=== PATIENT | male | born 1935 | race Caucasian/White ===

== ENCOUNTER 2020-05-15 20:07 | Inpatient (IN) | payer MEDICARE ==
[~2020-05-15] VITALS: Ht 180.3 cm; Wt 99.3 kg
[~2020-05-15 20:07] MED LIST: ACET-685 PO; ALBU2.5V12 IH; AMIO200T6 PO; AMLO-169 PO; AMLO-170 PO; APIX5TAB PO; ASPI-485 PO; ASPI-667 PO; ATEN50TA PO; ATOR40TA50 PO; AZIT500T PO; BACI3.5O8 OP; BENZ100C PO; BUDE0.5A3 IH; CARV12.52 PO; CARV3.12 PO; CHOL500021 PO; CLIN300C8 PO; CLON0.1T PO; DIGO125T81 PO; DOCU-167 PO; DOXY100T PO; EZET10TA20 PO; FERR142T13 PO; FURO-80 PO; FURO20TA3 PO; GABA100C PO; GABA100C7 PO; GUAI600T31 PO; HYDR-3194 PO; HYDR-3195 PO; IPRA0.2S34 IH; LEVA1.25 IH; LEVO500T51 PO; LEVO75TA6 PO; LISI-410 PO; LOSA25TA2 PO; LOSA50TA14 PO; METF500T17 PO; METO-236 PO; METO25TA4 PO; METO50TA6 PO; MONT10TA11 PO; MULT-419 PO; Magnesium Oxide PO; OLME1TAB25 PO; OLME40TA12 PO; OMEP20CA19 PO; ONDA-87 PO; POTA10CA PO; POTA10TA6 PO; PRED5TAB PO; PREG100C PO; TAMS-14 PO; TAMS0.4C2 PO; THEO400T2 PO; TIOT18CA IH; TIOT4MIS3 IH; TORS10TA4 PO; TORS20TA PO; TORS20TA2 PO; TRAM50TA PO; VALS80TA3 PO; WARF5TAB2 PO; [UNRECOGNIZED DRUG - CODE] PO
--- NOTE | 2020-05-15 20:11 | NUR ---
RT CALLED FOR EKG
[2020-05-15 20:12] VITALS: BP 157/76
[2020-05-15 20:27] LABS: BASOPHIL # 0.1 10^3/uL (0.0-0.1); BASOPHIL % 0.9 % (0.0-0.2); EOSINOPHIL # 0.1 10^3/uL (0.0-0.2); LYMPHOCYTES # 4.77 10^3/uL1 (1.0-4.8); LYMPHOCYTES % 51.1 % (24.0-44.0); MEAN CORP HGB 26.9 pg (26-34); MONOCYTES # 0.8 10^3/uL (0.3-0.8); MONOCYTES % 8.4 % (5.0-12.0); NEUTROPHIL # 3.6 10^3/uL (1.8-7.7); NEUTROPHILS % 38.5 % (41.0-85.0); PLATELET COUNT 234 10^3/uL (150-400); RED CELL DISTRIBUTION WIDTH 15.2 % (11.5-14.5)
--- NOTE | 2020-05-15 20:33 | PCM.EKG ---
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: RT : 1935 Requested By: NORBERT SCOTT Order Number: [id number] Reading MD: Norbert Scott Measurements Intervals [place] Rate: 45 P: [place]: QRS: 63 QRSD: 96 T: 103 QT: 480 QTc: 416 Interpretive Statements Atrial flutter Nonspecific repol abnormality, diffuse leads Compared to ECG 03/14/2020 06:54:59 Early repolarization now present AV block, advanced (high-grade) no longer present ST (T wave) deviation no longer present Prolonged QT interval no longer present Electronically Signed On 05-16-2020 19:59:32 CDT by Norbert Scott Please click the below link to view image of tracing.
[2020-05-15 20:54] LABS: CALCIUM 8.1 mg/dL (8.4-10.5); CARBON DIOXIDE 24.1 mmol/L (20.0-32)
--- NOTE | 2020-05-15 21:03 | DIREP ---
PROCEDURE:CHEST 1 VIEW COMPARISON:[facility], CR, XRAY CHEST SINGLE VW, 03/14/2020, 06:43 AM. INDICATIONS:SHORTNESS OF BREATH FINDINGS: LUNGS/PLEURA:Pulmonary hyperexpansion suggests COPD/emphysema. Scattered interstitial scarring. VASCULATURE:Normal. Unremarkable pulmonary vasculature. CARDIAC:Mild cardiomegaly. MEDIASTINUM:Calcified right hilar lymph nodes. BONES:Normal. No fracture or visible bony lesion. OTHER:Negative. CONCLUSION: 1. COPD/emphysema with interstitial scarring. 2. Cardiomegaly. 3. Old granulomatous disease. Dictated by: Ferdinand Morris M.D. on 05/15/2020 at 08:59 PM
--- NOTE | 2020-05-15 21:46 | NUR ---
DHAVAL DAIGLE CALLING DR PUENTES
--- NOTE | 2020-05-15 21:54 | NUR ---
NICHOLAS DEP SPEAKING TO DR PETERSON ABOUT ADMISSION.
--- NOTE | 2020-05-15 22:25 | NUR ---
HOSPITALIST DR. ANTHONY AT BEDSIDE TO ASSESS PATIENT
--- NOTE | 2020-05-15 22:43 | NUR ---
PRIMARY CONTACT PATIENT GAVE PERMISSION FOR NURSES TO SPEAK WITH IRVIN LOCKETT IF SHE CALLS FOR INFORMATION. THIS IS PATIENT'S DAUGHTER.
--- NOTE | 2020-05-15 22:44 | NUR ---
IRVIN'S NUMBER: [phone]
--- NOTE | 2020-05-15 22:51 | PCM.HP ---
History of Present Illness Reason for Visit: (1) Chronic anemia ICD Code: D64.9 - Anemia, unspecified SNOMED: 879436272 (2) Diastolic heart failure due to valvular disease ICD Code: I50.30 - Unspecified diastolic (congestive) heart failure; I38 - Endocarditis, valve unspecified SNOMED: 130211452 (3) Atrial flutter by electrocardiogram ICD Code: I48.92 - Unspecified atrial flutter SNOMED: 030890050 (4) Dyspnea ICD Code: R06.00 - Dyspnea, unspecified SNOMED: 233320251, 588965359 Permanent Comment: Improved since admission - Continue Tx for COPD exacerbation & CHF exacerbation. Last Edited By: Augusto Meza MD on Apr 25, 2016 17:36 (5) Weakness generalized ICD Code: R53.1 - Weakness SNOMED: 76940236 Permanent Comment: Significantly improved with medical therapy per patient - continue to treat for COPD & CHF Last Edited By: Augusto Meza MD on Apr 25, 2016 17:46 (6) Chest pain ICD Code: R07.9 - Chest pain, unspecified SNOMED: 22365826 (7) Acute on chronic renal insufficiency ICD Code: N28.9 - Disorder of kidney and ureter, unspecified; N18.9 - Chronic kidney disease, unspecified SNOMED: 567051404, 781087091 Hx of Present Illness 84-year-old male who presented to the Emergency Department of [facility] with symptoms of left sided chest discomfort for several hours that is better after taking a hydrocodone, generalized weakness and progressively worsening shortness of breath. On presentation to the ED, chest x-ray revealed findings of cardiomegaly and emphysematous changes. 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 Nonspecific findings on EKG with no clear evidence of acute ischemia, Troponin neg X1. 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 ECHO 12/2019 The left ventricular systolic function is normal. LVEF is 60-65%. Bioprosthetic aortic valve is present. Severe aortic regurgitation. Severe mitral regurgitation. Moderate tricuspid regurgitation. PAST MEDICAL HISTORY: 1. Hypertension. 2. Chronic diastolic heart failure. 3. Nonobstructive coronary artery disease by left heart catheterization done, 09/2019. 4. Chronic obstructive pulmonary disease. 5. Obstructive sleep apnea. 6. Type 2 diabetes mellitus. 7. Paroxysmal atrial flutter. 8. Carotid artery disease. 9. Severe mitral regurgitation. 10. [id number] aortic regurgitation. PAST SURGICAL HISTORY: 1. Bioprosthetic aortic valve replacement done in 2007. 2. Left heart catheterization done 09/2019, which revealed nonobstructive coronary artery disease. ALLERGIES: HE IS ALLERGIC TO AMLODIPINE, LIPITOR, BUTORPHANOL, HYDROCHLOROTHIAZIDE, IBUPROFEN, AND PREGABALIN. MEDICATIONS: He takes at home includes; 1. Eliquis 5 mg p.o. b.i.d. 2. Aspirin 81 mg p.o. daily. 3. Docusate 100 mg p.o. b.i.d. 4. Torsemide 20 mg half a tab daily. 5. Gabapentin 200 p.o. q. 8 hours. 6. Levothyroxine 75 mcg p.o. daily. 7. Losartan 100 mg p.o. daily. 8. Metoprolol tartrate 12.5 mg p.o. b.i.d. 9. Prilosec 20 mg p.o. every day. 10. Prednisone 5 mg p.o. every day. 11. Flomax 0.8 mg p.o. daily. SOCIAL HISTORY: Denies tobacco use, denies illicit drug use, denies alcohol use. FAMILY HISTORY: Admits to family history of premature CAD, but denies sudden cardiac . Travel History [place] RISK:Travel to/contact w: No Review of Systems Constitutional: Weakness (generalized); No: Fever, Chills, Sweats, Malaise, Other Eyes: No: Pain, Vision change, Conjunctivae inflammation, Eyelid inflammation, Other, Redness ENT: No: Ear pain, Ear discharge, Nose pain, Nose discharge, Nose congestion, Mouth pain, Mouth swelling, Throat pain, Throat swelling, Other Respiratory: SOB with excertion; No: Dry, Wheezing, Hemoptysis, Pleuritic Pain, Sputum, Wheezing, Other Cardiovascular: Chest Pain; No: Palpitations, Orthopnea, Paroxysmal Noc. Dyspnea, Edema, Lt Headedness Gastrointestinal: No: Nausea, Vomiting, Abdominal Pain, Diarrhea, Constipation, Melena, Hematochezia, Other Genitourinary: No Dysuria, No Frequency, No Incontinence, No Hematuria, No Retention, No Other Musculoskeletal: No: other, neck pain, shoulder pain, arm pain, back pain, hand pain, leg pain, foot pain Skin: No: Rash, Lesions, Jaundice, Bruising, Other Neurological: No: Numbness, Incoordination, Change in speech, Confusion, Seizures, Other Allergies: Coded Allergies: atorvastatin (Verified Allergy, Severe, MUSCLE WEAKNESS, 03/10/20) hydrochlorothiazide (Verified Allergy, Severe, HYPONATREMIA, 03/10/20) amlodipine (Verified Allergy, Intermediate, Swelling, 03/10/20) "MAKES ME RETAIN WATER REAL BAD" pregabalin (Verified Allergy, Intermediate, 03/10/20) BLURRED VISION butorphanol (Verified Allergy, Unknown, HALLUCINATIONS, 03/10/20) ibuprofen (Verified Allergy, Unknown, 03/10/20) INSTRUCTED BY DR NOT TO TAKE lisinopril (Verified Allergy, Unknown, 03/10/20) Scheduled Apixaban (Eliquis), 5 MG PO BID, (Reported) Aspirin (Aspir 81), 1 TAB PO DAILY24, (Reported) Docusate Sodium (Easy-Lax), 100 MG PO BID Gabapentin (Gabapentin), 2 CAP PO TID, (Reported) Hydralazine Hcl (Hydralazine Hcl), 2 TAB PO BID, (Reported) Levothyroxine Sodium (Levothyroxine Sodium), 1 TAB PO DAILY, (Reported) Losartan Potassium (Losartan Potassium), 2 TAB PO DAILY, (Reported) Metoprolol Tartrate 25MG (Lopresser 25MG), 12.5 MG PO BID Omeprazole (Omeprazole), 1 CAP PO BID, (Reported) Potassium Chloride (Potassium Chloride), 10 MEQ PO Q48H, (Reported) Tamsulosin Hcl (Flomax), 2 CAP PO DAILY, (Reported) Tiotropium Br/Olodaterol HCl (Stiolto Respimat Inhal [place]), 2 PUFF IH DAILY24, (Reported) Torsemide (Torsemide), 1 TAB PO Q48H, (Reported) Torsemide (Torsemide), 1 TAB PO Q48H, (Reported) Scheduled PRN Furosemide (Furosemide), 1 TAB PO DAILY PRN for WEIGHT GAIN, (Reported) Hydrocodone Bit/Acetaminophen (Hydrocodon-Acetaminophn 10-300), 1 TAB PO BID PRN for PAIN MODERATE, (Reported) VTE VTE Risk Total Score: >5 VTE Risk Score VTE Risk: Score 0-1 = Low Risk (Aggressive mobilization; early ambulation; no VTE prophylaxis required) Score 2: Moderate Risk (Intermittent/Pneumatic Compression Device OR Lovenox/Heparin/Coumadin) Score 3-4: High Risk (Intermittent/Pneumatic Compression Device AND Lovenox/Heparin/Coumadin) Score > or =5: Highest Risk (Intermittent/Pneumatic Compression Device AND Lovenox/Heparin/Coumadin) Antico:Hep/LMWH/Coum/Xarelto: Yes Mechanical device ordered: Yes Reasons not ordering prophylax: Renal impairment VTE VTE Present on Admission: No Currently receiving anticoagul: Yes VTE Risk Total Score: >5 Antico:Hep/LMWH/Coum/Xarelto: No Mechanical device ordered: Yes Exam Vital Signs Vital Signs Date Time Temp Pulse Resp B/P (MAP) Pulse Ox O2 Delivery O2 Flow Rate FiO2 05/15/20 20:12 98.5 57 18 157/76 (103) 94 General Appearance: Alert, Oriented X3 HEENT: Atraumatic Respiratory: Clear to auscultation, Normal air movement Cardiovascular: Other (bradycardia and murmur present) Abdominal: Normal bowel sounds Extremities: No clubbing Skin: No rash Neuro: Normal speech, Strength at 5/5 X4 ext Psych/Mental Status: Mental status NL, Mood NL Assessment/Plan Assessment/Plan Assessment/Plan Assessment: 84-year-old male who presented to the Emergency Department of [facility] with symptoms of left sided chest discomfort for several hours that is better after taking a hydrocodone, generalized weakness and progressively worsening shortness of breath. On presentation to the ED, chest x-ray revealed findings of cardiomegaly and emphysematous changes. He also has a history of severe valvulopathy with severe mitral regurgitation as well as [id number]-[id number]-jyxrdq aortic regurgitation with porcine valve in place. Nonspecific findings on EKG with no clear evidence of acute ischemia, Troponin neg X1. Patient denies fever or change in baseline chronic COPD cough Plan: Chest pain: Patient states this is mostly resolved no acute ischemia on EKG and troponin is negative will trend troponins x3 overnight continue aspirin and Eliquis cardiology consult in the morning additional EKG for any worsening chest pain. CHF: One-time dose of Lasix tonight with potassium will gently diuresis given acute on chronic renal sufficiency. BNP does appear to be above baseline we will plan on obtaining echocardiogram in the a.m. with cardiology consult 1.5 L daily fluid restriction and daily weights. Strict HENRY's Acute on chronic renal insufficiency: Monitor closely with diuresis avoid nephrotoxic medications. Chronic anemia: On aspirin and Eliquis will continue Protonix gastroprotective effect and likely chronic blood loss anemia trend hemoglobin Paroxysmal atrial flutter: continue rate control medications Hypothyroidism: continue levothyroxine Restart home medications for other chronic health problems as indicated Full Code Patient History: FH: cancer G8 BROTHER, , Age:50's - 60 G8 BROTHER, , Age:50's - 60 Hypertension 33 FATHER, , Age:61 No Family History of: Alzheimer's disease Asthma Congestive heart failure Parkinson's disease Unknown TYRESE ANTHONY MD May 15, 2020 22:51
[2020-05-15] MEDS ORDERED: NORCO 10MG PO PRN (23:30)
[2020-05-15] MEDS ORDERED: KLOR-CON 10 PO SCH (23:30)
[2020-05-15] MEDS ORDERED: LASIX PO PRN (23:30)
[2020-05-15] MEDS ORDERED: DEMADEX PO SCH (23:30)
[2020-05-15] MEDS ORDERED: LASIX IV STA (23:36)
[2020-05-15] MEDS ORDERED: POTASSIUM CHLORIDE PO STA (23:36)
[2020-05-15] MEDS ORDERED: COLACE ONE (23:47)
[2020-05-15] MEDS ORDERED: NORCO 10MG PO ONE (23:49)
[2020-05-15] MEDS ORDERED: ASPIRIN ONE (23:50)
[2020-05-15] MEDS: ASPIRIN EC PO SCH (23:58)
[2020-05-15] MEDS: ELIQUIS PO SCH (23:59)
[2020-05-15] MEDS: COLACE PO SCH (23:59)
[2020-05-16] VITALS (7 sets, daily range): BP systolic 118–146; BP diastolic 52–70
[2020-05-16] MEDS: APRESOLINE PO SCH ×3 (00:01→20:12)
[2020-05-16] MEDS ORDERED: NORCO 10MG PO ONE (00:03)
[2020-05-16 05:55] LABS: BASOPHIL # 0.1 10^3/uL (0.0-0.1); BASOPHIL % 1.1 % (0.0-0.2); EOSINOPHIL # 0.2 10^3/uL (0.0-0.2); EOSINOPHIL % 2.7 % (0.0-5.0); LYMPHOCYTES # 4.48 10^3/uL1 (1.0-4.8); LYMPHOCYTES % 52.8 % (24.0-44.0); MEAN CORP HGB 27.2 pg (26-34); MONOCYTES # 0.7 10^3/uL (0.3-0.8); MONOCYTES % 8.6 % (5.0-12.0); NEUTROPHIL # 2.9 10^3/uL (1.8-7.7); NEUTROPHILS % 34.6 % (41.0-85.0); PLATELET COUNT 227 10^3/uL (150-400)
[2020-05-16 06:16] LABS: ALANINE AMINOTRANSFERASE(ML) 17 U/L (12-78); ALKALINE PHOSPHATASE 92 U/L (50-136); ASPARTATE AMINO TRANSFERASE 19 U/L (0-35); CALCIUM 8.4 mg/dL (8.4-10.5); CARBON DIOXIDE 23.4 mmol/L (20.0-32); GLUCOSE 112 mg/dL (70-110)
--- NOTE | 2020-05-16 08:28 | PRM.PN ---
Subjective Subjective Date: May 16, 2020 Time: 08:27 Subjective Patient is feeling better today after IV lasix will continue per cardiology recommendation Patient History: FH: cancer G8 BROTHER, , Age:50's - 60 G8 BROTHER, , Age:50's - 60 Hypertension 33 FATHER, , Age:61 No Family History of: Alzheimer's disease Asthma Congestive heart failure Parkinson's disease Unknown VTE VTE Risk Total Score: >5 VTE Risk Score VTE Risk: Score 0-1 = Low Risk (Aggressive mobilization; early ambulation; no VTE prophylaxis required) Score 2: Moderate Risk (Intermittent/Pneumatic Compression Device OR Lovenox/Heparin/Coumadin) Score 3-4: High Risk (Intermittent/Pneumatic Compression Device AND Lovenox/Heparin/Coumadin) Score > or =5: Highest Risk (Intermittent/Pneumatic Compression Device AND Lovenox/Heparin/Coumadin) Antico:Hep/LMWH/Coum/Xarelto: Yes Mechanical device ordered: Yes Reasons not ordering prophylax: Renal impairment Review of Systems Constitutional: Weakness Eyes: No: Pain, Vision change, Conjunctivae inflammation, Eyelid inflammation, Other, Redness ENT: No: Ear pain, Ear discharge, Nose pain, Nose discharge, Nose congestion, Mouth pain, Mouth swelling, Throat pain, Throat swelling, Other Respiratory: SOB with excertion Cardiovascular: Chest Pain, Orthopnea Gastrointestinal: No: Nausea, Vomiting, Abdominal Pain, Diarrhea, Constipation, Melena, Hematochezia, Other Genitourinary: No Dysuria, No Frequency, No Incontinence, No Hematuria, No Retention, No Other Musculoskeletal: No: other, neck pain, shoulder pain, arm pain, back pain, hand pain, leg pain, foot pain Skin: No: Rash, Lesions, Jaundice, Bruising, Other Neurological: No: Numbness, Incoordination, Change in speech, Confusion, Seizures, Other Allergies: Coded Allergies: atorvastatin (Verified Allergy, Severe, MUSCLE WEAKNESS, 03/10/20) hydrochlorothiazide (Verified Allergy, Severe, HYPONATREMIA, 03/10/20) amlodipine (Verified Allergy, Intermediate, Swelling, 03/10/20) "MAKES ME RETAIN WATER REAL BAD" pregabalin (Verified Allergy, Intermediate, 03/10/20) BLURRED VISION butorphanol (Verified Allergy, Unknown, HALLUCINATIONS, 03/10/20) ibuprofen (Verified Allergy, Unknown, 03/10/20) INSTRUCTED BY DR NOT TO TAKE lisinopril (Verified Allergy, Unknown, 03/10/20) Scheduled Apixaban (Eliquis), 5 MG PO BID, (Reported) Aspirin (Aspir 81), 1 TAB PO DAILY24, (Reported) Docusate Sodium (Easy-Lax), 100 MG PO BID Gabapentin (Gabapentin), 2 CAP PO TID, (Reported) Hydralazine Hcl (Hydralazine Hcl), 2 TAB PO BID, (Reported) Levothyroxine Sodium (Levothyroxine Sodium), 1 TAB PO DAILY, (Reported) Losartan Potassium (Losartan Potassium), 2 TAB PO DAILY, (Reported) Metoprolol Tartrate 25MG (Lopresser 25MG), 12.5 MG PO BID Omeprazole (Omeprazole), 1 CAP PO BID, (Reported) Potassium Chloride (Potassium Chloride), 10 MEQ PO Q48H, (Reported) Tamsulosin Hcl (Flomax), 2 CAP PO DAILY, (Reported) Tiotropium Br/Olodaterol HCl (Stiolto Respimat Inhal [place]), 2 PUFF IH DAILY24, (Reported) Torsemide (Torsemide), 1 TAB PO Q48H, (Reported) Torsemide (Torsemide), 1 TAB PO Q48H, (Reported) Scheduled PRN Furosemide (Furosemide), 1 TAB PO DAILY PRN for WEIGHT GAIN, (Reported) Hydrocodone Bit/Acetaminophen (Hydrocodon-Acetaminophn 10-300), 1 TAB PO BID PRN for PAIN MODERATE, (Reported) Objective Vitals and I/O Vital Sign - Last 24 Hours 05/15/20 05/15/20 05/15/20 05/16/20 20:12 20:12 20:12 00:00 Temp 98.5 98.5 98.5 Pulse 57 57 57 Resp 18 18 18 B/P (MAP) 157/76 (103) 146/70 Pulse Ox 94 94 05/16/20 05/16/20 05/16/20 00:01 01:45 05:03 Temp 97.7 Pulse 60 60 59 Resp 20 18 B/P (MAP) 146/70 146/70 (95) 132/61 (84) Pulse Ox 97 96 O2 Delivery Room Air Room Air Intake and Output 05/16/20 06:59 Intake Total 240 ml Output Total 1110 ml Balance -870 ml General: Alert, Oriented X3 HEENT: Atraumatic Lungs: Clear to auscultation, Normal air movement Heart: Other (3/6 holosystolic murmur) Abdomen: Normal bowel sounds Extremities: No clubbing Neuro: Normal speech, Strength at 5/5 X4 ext Psych/Mental Status: Mental status NL, Mood NL All Results(Lab/Rad) Laboratory Tests Test 05/15/20 20:16 05/16/20 00:56 05/16/20 05:18 White Blood Count 9.3 10^3/uL 8.5 10^3/uL Red Blood Count 3.08 10^6/uL 2.98 10^6/uL Hemoglobin 8.3 g/dL 8.1 g/dL Hematocrit 26.3 % 25.3 % Mean Corpuscular Volume 85.4 fL 84.9 fL Mean Corpuscular Hemoglobin 26.9 pg 27.2 pg Mean Corpuscular Hemoglobin Concent 31.6 g/dL 32.0 g/dL Red Cell Distribution Width 15.2 % 15.0 % Platelet Count 234 10^3/uL 227 10^3/uL Mean Platelet Volume 9.6 fL 10.2 fL Neutrophils (%) (Auto) 38.5 % 34.6 % Lymphocytes (%) (Auto) 51.1 % 52.8 % Monocytes (%) (Auto) 8.4 % 8.6 % Neutrophils # (Auto) 3.6 10^3/uL 2.9 10^3/uL Lymphocytes # (Auto) 4.77 10^3/uL1 4.48 10^3/uL1 Monocytes # (Auto) 0.8 10^3/uL 0.7 10^3/uL Absolute Immature Granulocyte (auto 0.01 10^3 u/L 0.02 10^3 u/L Absolute Eosinophils (auto) 0.1 10^3/uL 0.2 10^3/uL Immature Granulocytes % 0.10 % 0.20 % Eosinophils % 1.0 % 2.7 % Basophils % 0.9 % 1.1 % Basophils # 0.1 10^3/uL 0.1 10^3/uL Prothrombin Time 13.6 SEC Prothrombin Time INR (Non-Therap) 1.3 Activated Partial Thromboplast Time 28.1 SEC D-Dimer 1.58 mg/L Sodium Level 131 mmol/L 138 mmol/L Potassium Level 4.0 mmol/L 4.3 mmol/L Chloride Level 100.0 mmol/L 104.0 mmol/L Carbon Dioxide Level 24.1 mmol/L 23.4 mmol/L Anion Gap 10.9 14.9 Blood Urea Nitrogen 27 mg/dL 29 mg/dL Creatinine 1.73 mg/dL 1.64 mg/dL Estimated GFR () 45.8 48.7 Est GFR (CKD-EPI)(Non-Afr Cymro) 37.8 40.2 BUN/Creatinine Ratio 15.0 17.0 Glucose Level 110 mg/dL 112 mg/dL Calcium Level 8.1 mg/dL 8.4 mg/dL Total Bilirubin 0.6 mg/dL 0.5 mg/dL Aspartate Amino Transf (AST/SGOT) 22 U/L 19 U/L Alanine Aminotransferase (ALT/SGPT) 20 U/L 17 U/L Alkaline Phosphatase 90 U/L 92 U/L Total Creatine Kinase 100 U/L Creatine Kinase MB 1.5 ng/mL Troponin I 0.03 ng/mL 0.03 ng/mL < 0.02 ng/mL Pro-B-Type Natriuretic Peptide 53999 pg/mL Total Protein 7.2 g/dL 6.9 g/dL Albumin 3.3 g/dL 3.0 g/dL Globulin 3.9 3.9 Albumin/Globulin Ratio 0.846 0.769 Helicobacter pylori Screen NEGATIVE Current Medications Medications (Trade) Dose Ordered Sig/Sal Route PRN Reason Start Time Stop Time Status Last Admin Dose Admin Aspirin (Aspirin Ec) 81 mg DAILY24 PO 05/15/20 23:30 06/14/20 23:29 05/15/20 23:58 Docusate Sodium (Colace) 100 mg BID PO 05/15/20 23:30 06/14/20 23:29 05/15/20 23:59 Furosemide (Lasix) 20 mg DAILY PRN PO WEIGHT GAIN 05/15/20 23:30 06/14/20 23:29 Gabapentin (Neurontin) 200 mg TID PO 05/16/20 09:00 06/15/20 08:59 Hydralazine HCl (Apresoline) 50 mg BID PO 05/15/20 23:30 06/14/20 23:29 05/16/20 00:01 Levothyroxine Sodium (Synthroid) 75 mcg ACB PO 05/16/20 09:00 06/15/20 08:59 Losartan Potassium (Cozaar) 100 mg DAILY PO 05/16/20 09:00 06/15/20 08:59 Metoprolol Tartrate (Lopresser) 12.5 mg BID PO 05/16/20 09:00 06/15/20 08:59 Pantoprazole Sodium (Protonix) 40 mg BID PO 05/16/20 09:00 06/15/20 08:59 Tamsulosin HCl (Flomax) 0.8 mg DAILY PO 05/16/20 09:00 06/15/20 08:59 Torsemide (Demadex) 20 mg Q48H PO 05/15/20 23:30 06/14/20 23:29 Acetaminophen/ Hydrocodone Bitart ([place] 10mg) 1 each BID PRN PO PAIN MOD 05/15/20 23:30 06/14/20 23:29 Potassium Chloride (Klor-Con 10) 10 meq Q48H PO 05/15/20 23:30 06/14/20 23:29 Furosemide (Lasix) 40 mg STAT STAT IV 05/15/20 23:36 05/16/20 00:06 DC 05/16/20 00:00 Potassium Chloride (Potassium Chloride) 40 meq STAT STAT PO 05/15/20 23:36 05/16/20 00:06 DC 05/15/20 23:59 Docusate Sodium (Colace) 100 mg STK-MED ONCE .ROUTE 05/15/20 23:47 05/15/20 23:49 DC Acetaminophen/ Hydrocodone Bitart ([place] 10mg) 1 each STK-MED ONCE PO 05/15/20 23:49 05/15/20 23:51 DC Aspirin (Aspirin) 81 mg STK-MED ONCE .ROUTE 05/15/20 23:50 05/15/20 23:52 DC Acetaminophen/ Hydrocodone Bitart ([place] 10mg) 1 each OT ONCE PO 05/16/20 00:03 05/16/20 00:04 DC 05/16/20 00:03 Course Sepsis Qualifier/Stage: NO DEFINITE RISK Duration or Total Time Spent w: 20 m Vitals & review Data Vital Sign - Last 24 Hours 05/15/20 05/15/20 05/15/20 05/16/20 20:12 20:12 20:12 00:00 Temp 98.5 98.5 98.5 Pulse 57 57 57 Resp 18 18 18 B/P (MAP) 157/76 (103) 146/70 Pulse Ox 94 94 05/16/20 05/16/20 05/16/20 00:01 01:45 05:03 Temp 97.7 Pulse 60 60 59 Resp 20 18 B/P (MAP) 146/70 146/70 (95) 132/61 (84) Pulse Ox 97 96 O2 Delivery Room Air Room Air Intake and Output 05/16/20 06:59 Intake Total 240 ml Output Total 1110 ml Balance -870 ml Laboratory Tests Test 05/15/20 20:16 05/16/20 00:56 05/16/20 05:18 White Blood Count 9.3 10^3/uL 8.5 10^3/uL Red Blood Count 3.08 10^6/uL 2.98 10^6/uL Hemoglobin 8.3 g/dL 8.1 g/dL Hematocrit 26.3 % 25.3 % Mean Corpuscular Volume 85.4 fL 84.9 fL Mean Corpuscular Hemoglobin 26.9 pg 27.2 pg Mean Corpuscular Hemoglobin Concent 31.6 g/dL 32.0 g/dL Red Cell Distribution Width 15.2 % 15.0 % Platelet Count 234 10^3/uL 227 10^3/uL Mean Platelet Volume 9.6 fL 10.2 fL Neutrophils (%) (Auto) 38.5 % 34.6 % Lymphocytes (%) (Auto) 51.1 % 52.8 % Monocytes (%) (Auto) 8.4 % 8.6 % Neutrophils # (Auto) 3.6 10^3/uL 2.9 10^3/uL Lymphocytes # (Auto) 4.77 10^3/uL1 4.48 10^3/uL1 Monocytes # (Auto) 0.8 10^3/uL 0.7 10^3/uL Absolute Immature Granulocyte (auto 0.01 10^3 u/L 0.02 10^3 u/L Absolute Eosinophils (auto) 0.1 10^3/uL 0.2 10^3/uL Immature Granulocytes % 0.10 % 0.20 % Eosinophils % 1.0 % 2.7 % Basophils % 0.9 % 1.1 % Basophils # 0.1 10^3/uL 0.1 10^3/uL Prothrombin Time 13.6 SEC Prothrombin Time INR (Non-Therap) 1.3 Activated Partial Thromboplast Time 28.1 SEC D-Dimer 1.58 mg/L Sodium Level 131 mmol/L 138 mmol/L Potassium Level 4.0 mmol/L 4.3 mmol/L Chloride Level 100.0 mmol/L 104.0 mmol/L Carbon Dioxide Level 24.1 mmol/L 23.4 mmol/L Anion Gap 10.9 14.9 Blood Urea Nitrogen 27 mg/dL 29 mg/dL Creatinine 1.73 mg/dL 1.64 mg/dL Estimated GFR () 45.8 48.7 Est GFR (CKD-EPI)(Non-Afr Cymro) 37.8 40.2 BUN/Creatinine Ratio 15.0 17.0 Glucose Level 110 mg/dL 112 mg/dL Calcium Level 8.1 mg/dL 8.4 mg/dL Total Bilirubin 0.6 mg/dL 0.5 mg/dL Aspartate Amino Transf (AST/SGOT) 22 U/L 19 U/L Alanine Aminotransferase (ALT/SGPT) 20 U/L 17 U/L Alkaline Phosphatase 90 U/L 92 U/L Total Creatine Kinase 100 U/L Creatine Kinase MB 1.5 ng/mL Troponin I 0.03 ng/mL 0.03 ng/mL < 0.02 ng/mL Pro-B-Type Natriuretic Peptide 09234 pg/mL Total Protein 7.2 g/dL 6.9 g/dL Albumin 3.3 g/dL 3.0 g/dL Globulin 3.9 3.9 Albumin/Globulin Ratio 0.846 0.769 Helicobacter pylori Screen NEGATIVE Current Medications Medications (Trade) Dose Ordered Sig/Sal PRN Reason Start Time Stop Time Status Last Admin Acetaminophen/ Hydrocodone Bitart ([place] 10mg) 1 each BID PRN PAIN MOD 05/15/20 23:30 06/14/20 23:29 Aspirin (Aspirin Ec) 81 mg DAILY24 05/15/20 23:30 06/14/20 23:29 05/15/20 23:58 Docusate Sodium (Colace) 100 mg BID 05/15/20 23:30 06/14/20 23:29 05/15/20 23:59 Furosemide (Lasix) 20 mg DAILY PRN WEIGHT GAIN 05/15/20 23:30 06/14/20 23:29 Gabapentin (Neurontin) 200 mg TID 05/16/20 09:00 06/15/20 08:59 Hydralazine HCl (Apresoline) 50 mg BID 05/15/20 23:30 06/14/20 23:29 05/16/20 00:01 Levothyroxine Sodium (Synthroid) 75 mcg ACB 05/16/20 09:00 06/15/20 08:59 Losartan Potassium (Cozaar) 100 mg DAILY 05/16/20 09:00 06/15/20 08:59 Metoprolol Tartrate (Lopresser) 12.5 mg BID 05/16/20 09:00 06/15/20 08:59 Pantoprazole Sodium (Protonix) 40 mg BID 05/16/20 09:00 06/15/20 08:59 Potassium Chloride (Klor-Con 10) 10 meq Q48H 05/15/20 23:30 06/14/20 23:29 Tamsulosin HCl (Flomax) 0.8 mg DAILY 05/16/20 09:00 06/15/20 08:59 Torsemide (Demadex) 20 mg Q48H 05/15/20 23:30 06/14/20 23:29 Sepsis Infection Criteria Pres: Documented Infection LEVEL 1 SEPSIS INFECTION CRITE: None/Not assessed LEVEL 2-SIRS (LIST ALL THAT AP: None/Not assessed Cardiovascular Evidence: Not Assessed or None Hematologic Evidence: None/Not assessed Hepatic Evidence: None/Not assessed Metabolic Evidence: None/Not assessed Neurological Evidence: None/Not assessed Respiratory Evidence: None/Not assessed Renal Evidence: None/Not assessed O2 Sat by Pulse Oximetry: 96 Assessment/Plan Assessment/Plan Assessment/Plan Assessment: 84-year-old male who presented to the Emergency Department of [facility] with symptoms of left sided chest discomfort for several hours that is better after taking a hydrocodone, generalized weakness, progressively worsening shortness of breath and orthopnea. On presentation to the ED, chest x-ray revealed findings of cardiomegaly and emphysematous changes. He also has a history of severe valvulopathy with severe mitral regurgitation as well as [id number]-[id number] aortic regurgitation with porcine valve in place. Nonspecific findings on EKG with no clear evidence of acute ischemia, Troponin neg x3. Patient denies fever or change in baseline chronic COPD cough Plan: Chest pain: Patient states this is mostly resolved no acute ischemia on EKG and troponin is negative will trend troponins x3 overnight continue aspirin and Eliquis cardiology consult in the morning additional EKG for any worsening chest pain. CHF: Acute decompensated heart failure. IV lasix with potassium will gently diuresis given acute on chronic renal sufficiency. BNP does appear to be above baseline we will plan on obtaining echocardiogram in the a.m. with cardiology consult 1.5 L daily fluid restriction and daily weights, sodium restriction. Strict I & O's appreciate cardiology recommendations and assistance on the case. Awaiting echocardiogram results Acute on chronic renal insufficiency: Monitor closely with diuresis avoid nephrotoxic medications. Chronic anemia: On aspirin and Eliquis will continue Protonix gastroprotective effect and likely chronic blood loss anemia trend hemoglobin Paroxysmal atrial flutter: continue rate control medications Hypothyroidism: continue levothyroxine Restart home medications for other chronic health problems as indicated Full Code TYRESE ANTHONY MD May 16, 2020 08:28
[2020-05-16] MEDS: COLACE PO SCH ×2 (08:56→20:12)
[2020-05-16] MEDS: COZAAR PO SCH (08:56)
[2020-05-16] MEDS: FLOMAX PO SCH (08:57)
[2020-05-16] MEDS: LOPRESSER PO SCH ×2 (08:57→20:13)
[2020-05-16] MEDS: NEURONTIN PO SCH ×3 (08:58→20:11)
[2020-05-16] MEDS: PROTONIX PO SCH ×2 (08:58→20:12)
[2020-05-16] MEDS: ELIQUIS PO SCH ×2 (08:58→20:12)
[2020-05-16] MEDS: SYNTHROID PO SCH (09:02)
[2020-05-16] MEDS ORDERED: LASIX ONE (11:59)
[2020-05-16] MEDS: LASIX IV SCH (12:04)
--- NOTE | 2020-05-16 12:40 | NUR ---
DISCHARGE PLAN CASE MANAGEMENT VISITED WITH PT AT [facility] CONCERNING DISCHARGE PLAN AND NEEDS. LIVES AT HOME WITH SPOUSE. HAS DME INCLUDING CANE, WALKER, AND SC. DENIES NEED FOR HOME OXYGEN. IS CURRENTLY HAS [facility] IN PLACE OUT OF THE [place] OFFICE. PCP IS DR. SHIELDS. DISCHARGE PLAN IS TO DC HOME WITH SPOUSE AND HAVE [facility] TO FOLLOW.
--- NOTE | 2020-05-16 14:27 | CNH ---
DATE OF CONSULTATION: 05/16/2020 REASON FOR CONSULTATION: Acute decompensated heart failure. HISTORY OF PRESENT ILLNESS: This is an 84-year-old male who presented to the Emergency Department of [facility] with symptoms of progressively worsening shortness of breath with associated orthopnea and paroxysmal nocturnal dyspnea. He was also noted to have episodes of chest discomfort. Upon presentation to the ED, EKG shows atrial flutter, which is known to him with controlled ventricular [place] [address]. Troponin is currently negative x 3. A consultation has been placed to Cardiology service for evaluation for acute decompensated heart failure. The patient has a known history of severe valvulopathy with severe mitral regurgitation as well as [id number] aortic regurgitation. PAST MEDICAL HISTORY: Significant for: 1. Hypertension. 2. Chronic diastolic heart failure. 3. Nonobstructive coronary artery disease by left heart catheterization done, 09/2019. 4. Chronic obstructive pulmonary disease. 5. Obstructive sleep apnea. 6. Type 2 diabetes mellitus. 7. Paroxysmal atrial flutter. 8. Carotid artery disease. 9. Severe mitral regurgitation. 10. Yifwcilg-hb-qhtcvv aortic regurgitation. PAST SURGICAL HISTORY: 1. Bioprosthetic aortic valve replacement done in 2007. 2. Left heart catheterization done 09/2019 revealed nonobstructive CAD. ALLERGIES: He is allergic to AMLODIPINE, LIPITOR, BUTORPHANOL, HYDROCHLOROTHIAZIDE, IBUPROFEN, and PREGABALIN. MEDICATIONS: He takes at home includes Eliquis 5 mg p.o. b.i.d., aspirin 81 mg daily, docusate, torsemide 20 mg half a tab daily, gabapentin, levothyroxine, losartan 100 mg p.o. daily, metoprolol tartrate 12.5 mg p.o. b.i.d., Prilosec, prednisone, and Flomax. SOCIAL HISTORY: Denies tobacco use, denies illicit drug use, denies alcohol use. FAMILY HISTORY: Admits to family history of premature CAD, but denies sudden cardiac . REVIEW OF SYSTEMS: As per HPI and as per previous records. All systems reviewed and negative for interval change. PHYSICAL EXAMINATION: VITAL SIGNS: Blood pressure is 127/66, respiratory rate is 18, pulse is 54, temperature 98.1, pulse ox is 97% on room air. GENERAL: I see no apparent distress, alert and oriented x 3. HEENT: Normocephalic, atraumatic. Extraocular muscles intact. Pupils are equally round and reactive to light and accommodation. HEART: S1, S2. Holosystolic murmur plus 3/6. LUNGS: Decreased breath sounds bilaterally. ABDOMEN: Soft, obese, nontender, nondistended. Positive bowel sounds in all 4 quadrants. EXTREMITIES: No cyanosis, no clubbing, +2 pitting edema bilaterally. NEUROLOGIC: No neurological deficits. Sensation is intact. IMPRESSION: 1. Acute decompensated heart failure secondary to diastolic dysfunction. 2. Severe mitral regurgitation. 3. Iblldaon-gz-kcqpml aortic regurgitation. 4. History of bioprosthetic aortic valve replacement done in 2007. 5. Paroxysmal atrial flutter, on Eliquis. 6. Nonobstructive coronary artery disease by left heart catheterization done, 09/2019. 7. Chronic obstructive pulmonary disease. 8. Hypertension. 9. Obstructive sleep apnea. 10. Type 2 diabetes mellitus. 11. Carotid artery disease. RECOMMENDATIONS: This is an 84-year-old male who presented to the Emergency Department with symptoms of progressively worsening shortness of breath and is noted to be in acute decompensated heart failure. I am going to start him on Lasix 40 mg IV every day. I would keep him on gentle diuresis given his abnormal kidney function at this time. I would continue his home medications including his beta blockers and angiotensin receptor blockers. He will be kept on fluid restriction to 1.5 liters a day, strict I's and O's, daily weights and sodium restriction. He will be kept on telemetry for now. A 2D echo to evaluate his left ventricular ejection fraction and structural integrity of his heart will be obtained. He recently underwent cardiac catheterization done in September of this year that revealed nonobstructive CAD. He has severe valvuloplasty involving the mitral and aortic valves that are also contributing factors to his decompensated heart failure. He will be kept in telemetry for now. Further recommendations will be made based on his overall clinical course. ALTHEA PUENTES D.O. : CORRY/sol JOB# [id number]
--- NOTE | 2020-05-16 19:29 | PCM.ECHO ---
APPROVED REPORT EXAM: Comprehensive 2D, Doppler, and color-flow Echocardiogram. Patient Location: IN-PATIENT Rhythm: Atrial Fibrillation Indications Congestive Heart Failure 2D Dimensions LVOT Diameter 2.33 (1.8-2.4cm) LVEF(%) 49.88 (>50%) M-Mode Dimensions RVDd 1.05 (2.1-3.2cm) Left Atrium(MM) 6.20 (2.5-4.0cm) IVSd 1.15 (0.7-1.1cm) Aortic Root 2.65 (2.2-3.7cm) LVDd 6.05 (4.0-5.6cm) Aortic Cusp Exc 1.10 (1.5-2.0cm) PWd 1.20 (0.7-1.1cm) MV EPSS 2.30 (<0.5cm) IVSs 1.30 cm FS (%) 15.00 % LVDs 5.15 (2.0-3.8cm) ESV(Teich) 128.01 ml PWs 1.40 cm LVEF(%) 31.18 (>50%) Volumes Biplane 2D LV Volumes Biplane 2D LA Volumes LVEDv A4C 162.12 mL LA ESV Index LVESv A4C 81.26 mL Aortic Valve AoV Peak Leonard. 2.90 m/s AoV VTI 64.45 cm AO Peak GR. 34.05 mmHg AO Mean GR. 17.45 mmHg LVOT VTI 26.12 cm LVOT Peak Leonard. 1.24 m/s JALEEL(VTI)/BSA 1.73 cm2/m2 JALEEL (VTI) 1.73 cm2 AI P 1/2 Time 608.40 ms Mitral Valve MV E Velocity 1.85m/s MR Peak Gr. 115.65mmHg Pulmonary Valve PV Peak Velocity 0.70m/s PV Peak Grad. 1.95mmHg RVOT VTI 10.99cm Tricuspid Valve TR P. Velocity 2.80m/s RAP ESTIMATE 10.00mmHg TR Peak Gr. 31.75mmHg RVSP 41.75mmHg LEFT VENTRICLE The left ventricle is normal size. The left ventricular systolic function is normal. The left ventricular ejection fraction is within the normal range. There is normal left ventricular wall thickness. There is normal LV segmental wall motion. There is no ventricular septal defect visualized. No left ventricle thrombus noted on this study. LVEF is 60%. RIGHT VENTRICLE The right ventricle is normal size. The right ventricular systolic function is normal. There is normal right ventricular wall thickness. ATRIA Left atrium is moderately dilated. Right atrium is severely dilated. The interatrial septum is intact with no evidence for an atrial septal defect. AORTIC VALVE There is no aortic valvular stenosis. Severe aortic regurgitation. There is no aortic valvular vegetation. Bioprosthetic aortic valve is present. Prosthetic aortic valve is grossly normal in appearance. No thrombus on the prosthetic aortic valve. MITRAL VALVE The mitral valve is normal in structure. There is no mitral valve stenosis. Severe mitral regurgitation. There is no evidence of mitral valve vegetations. TRICUSPID VALVE The tricuspid valve is normal in structure. There is no tricuspid valve stenosis. Severe tricuspid regurgitation. There is no tricuspid valve vegetations. PULMONIC VALVE Pulmonic valve is not well visualized. Moderate pulmonic regurgitation. GREAT VESSELS The aortic root is normal in size. Pulmonary artery is not well visualized. Aortic arch is not well visualized. IVC is dilated. PERICARDIUM There is no pericardial effusion. There is no pleural effusion. Other Information Study Quality: Fair <Conclusion> The left ventricular systolic function is normal. LVEF is 60%. Left atrium is moderately dilated. Right atrium is severely dilated. Bioprosthetic aortic valve is present. Prosthetic aortic valve is grossly normal in appearance. Severe aortic regurgitation. Severe mitral regurgitation. Severe tricuspid regurgitation. Moderate pulmonic regurgitation. IVC is dilated. Electronically signed by : ALTHEA PUENTES. 05/16/2020 19:28:37
[2020-05-16] MEDS: NORCO 10MG PO PRN (20:11)
[2020-05-16] MEDS ORDERED: ASPIRIN ONE (23:37)
[2020-05-16] MEDS: TYLENOL PO PRN (23:42)
[2020-05-16] MEDS: ASPIRIN EC PO SCH (23:42)
[2020-05-17 04:38] VITALS: BP 111/49
[2020-05-17 05:06] LABS: BASOPHIL # 0.1 10^3/uL (0.0-0.1); BASOPHIL % 1.2 % (0.0-0.2); EOSINOPHIL # 0.3 10^3/uL (0.0-0.2); EOSINOPHIL % 3.6 % (0.0-5.0); LYMPHOCYTES # 3.76 10^3/uL1 (1.0-4.8); LYMPHOCYTES % 48.1 % (24.0-44.0); MEAN CORP HGB 26.8 pg (26-34); MONOCYTES # 0.7 10^3/uL (0.3-0.8); MONOCYTES % 8.7 % (5.0-12.0); NEUTROPHILS % 38.3 % (41.0-85.0); PLATELET COUNT 230 10^3/uL (150-400)
[2020-05-17 05:43] LABS: CALCIUM 8.7 mg/dL (8.4-10.5)
--- NOTE | 2020-05-17 06:30 | NUR ---
REPORT RECEIVED, ASSUMED CARE
[2020-05-17] MEDS: SYNTHROID PO SCH (06:42)
[2020-05-17 08:15] VITALS: BP 132/61
[2020-05-17] MEDS: LOPRESSER PO SCH ×2 (09:00→21:00)
[2020-05-17] MEDS: COLACE PO SCH ×2 (09:00→20:56)
[2020-05-17] MEDS: PROTONIX PO SCH ×2 (09:00→20:56)
[2020-05-17] MEDS: COZAAR PO SCH (09:00)
[2020-05-17] MEDS: NEURONTIN PO SCH ×3 (09:00→20:55)
[2020-05-17] MEDS: LASIX IV SCH (09:00)
[2020-05-17] MEDS: ELIQUIS PO SCH ×2 (09:00→20:59)
[2020-05-17] MEDS: APRESOLINE PO SCH ×2 (09:00→20:59)
[2020-05-17] MEDS: FLOMAX PO SCH (09:00)
--- NOTE | 2020-05-17 09:00 | NUR ---
Meds given per order
--- NOTE | 2020-05-17 09:17 | PRM.PN ---
Subjective Subjective Date: May 17, 2020 Time: 09:17 Subjective Less short of breath today no chest pain Patient History: FH: cancer G8 BROTHER, , Age:50's - 60 G8 BROTHER, , Age:50's - 60 Hypertension 33 FATHER, , Age:61 No Family History of: Alzheimer's disease Asthma Congestive heart failure Parkinson's disease Unknown VTE VTE Risk Total Score: >5 VTE Risk Score VTE Risk: Score 0-1 = Low Risk (Aggressive mobilization; early ambulation; no VTE prophylaxis required) Score 2: Moderate Risk (Intermittent/Pneumatic Compression Device OR Lovenox/Heparin/Coumadin) Score 3-4: High Risk (Intermittent/Pneumatic Compression Device AND Lovenox/Heparin/Coumadin) Score > or =5: Highest Risk (Intermittent/Pneumatic Compression Device AND Lovenox/Heparin/Coumadin) Antico:Hep/LMWH/Coum/Xarelto: Yes Mechanical device ordered: Yes Reasons not ordering prophylax: Renal impairment Review of Systems Constitutional: Weakness Eyes: No: Pain, Vision change, Conjunctivae inflammation, Eyelid inflammation, Other, Redness ENT: No: Ear pain, Ear discharge, Nose pain, Nose discharge, Nose congestion, Mouth pain, Mouth swelling, Throat pain, Throat swelling, Other Respiratory: SOB with excertion Cardiovascular: Orthopnea; No: Chest Pain Gastrointestinal: No: Nausea, Vomiting, Abdominal Pain, Diarrhea, Constipation, Melena, Hematochezia, Other Genitourinary: No Dysuria, No Frequency, No Incontinence, No Hematuria, No Retention, No Other Musculoskeletal: No: other, neck pain, shoulder pain, arm pain, back pain, hand pain, leg pain, foot pain Skin: No: Rash, Lesions, Jaundice, Bruising, Other Neurological: No: Numbness, Incoordination, Change in speech, Confusion, Seizures, Other Allergies: Coded Allergies: atorvastatin (Verified Allergy, Severe, MUSCLE WEAKNESS, 03/10/20) hydrochlorothiazide (Verified Allergy, Severe, HYPONATREMIA, 03/10/20) amlodipine (Verified Allergy, Intermediate, Swelling, 03/10/20) "MAKES ME RETAIN WATER REAL BAD" pregabalin (Verified Allergy, Intermediate, 03/10/20) BLURRED VISION butorphanol (Verified Allergy, Unknown, HALLUCINATIONS, 03/10/20) ibuprofen (Verified Allergy, Unknown, 03/10/20) INSTRUCTED BY NOT TO TAKE lisinopril (Verified Allergy, Unknown, 03/10/20) Scheduled Apixaban (Eliquis), 5 MG PO BID, (Reported) Aspirin (Aspir 81), 1 TAB PO DAILY24, (Reported) Docusate Sodium (Easy-Lax), 100 MG PO BID Gabapentin (Gabapentin), 2 CAP PO TID, (Reported) Hydralazine Hcl (Hydralazine Hcl), 2 TAB PO BID, (Reported) Levothyroxine Sodium (Levothyroxine Sodium), 1 TAB PO DAILY, (Reported) Losartan Potassium (Losartan Potassium), 2 TAB PO DAILY, (Reported) Metoprolol Tartrate 25MG ([place] 25MG), 12.5 MG PO BID Omeprazole (Omeprazole), 1 CAP PO BID, (Reported) Potassium Chloride (Potassium Chloride), 10 MEQ PO Q48H, (Reported) Tamsulosin Hcl (Flomax), 2 CAP PO DAILY, (Reported) Tiotropium Br/Olodaterol HCl (Stiolto Respimat Inhal [place]), 2 PUFF IH DAILY24, (Reported) Torsemide (Torsemide), 1 TAB PO Q48H, (Reported) Torsemide (Torsemide), 1 TAB PO Q48H, (Reported) Scheduled PRN Furosemide (Furosemide), 1 TAB PO DAILY PRN for WEIGHT GAIN, (Reported) Hydrocodone Bit/Acetaminophen (Hydrocodon-Acetaminophn 10-300), 1 TAB PO BID PRN for PAIN MODERATE, (Reported) Objective Vitals and I/O Vital Sign - Last 24 Hours 05/16/20 05/16/20 05/16/20 05/16/20 11:16 11:45 12:04 16:20 Temp 98.1 98.3 Pulse 54 61 Resp 18 18 B/P (MAP) 127/66 (86) 127/66 118/63 (81) Pulse Ox 96 O2 Delivery Room Air Room Air 05/16/20 05/16/20 05/16/20 05/16/20 20:08 20:08 20:12 20:13 Temp 98.2 Pulse 62 62 62 Resp 18 B/P (MAP) 137/62 (87) 137/62 137/62 Pulse Ox 97 O2 Delivery Room Air Room Air 05/16/20 05/17/20 05/17/20 23:40 04:38 05:56 Temp 98.0 97.9 Pulse 57 58 Resp 18 18 B/P (MAP) 126/52 (76) 111/49 (69) Pulse Ox 95 93 O2 Delivery Room Air Room Air Room Air Intake and Output 05/17/20 07:00 Intake Total 886 ml Output Total 2585 ml Balance -1699 ml General: Alert, Oriented X3 HEENT: Atraumatic Lungs: Normal air movement, Other (Mildly diminished) Heart: Regular rate, Other (3/6 holosystolic murmur) Abdomen: Normal bowel sounds Extremities: No clubbing Skin: No rashes, No breakdown Neuro: Normal speech, Strength at 5/5 X4 ext Psych/Mental Status: Mental status NL, Mood NL All Results(Lab/Rad) Laboratory Tests Test 05/15/20 20:16 05/16/20 00:56 05/16/20 05:18 White Blood Count 9.3 10^3/uL 8.5 10^3/uL Red Blood Count 3.08 10^6/uL 2.98 10^6/uL Hemoglobin 8.3 g/dL 8.1 g/dL Hematocrit 26.3 % 25.3 % Mean Corpuscular Volume 85.4 fL 84.9 fL Mean Corpuscular Hemoglobin 26.9 pg 27.2 pg Mean Corpuscular Hemoglobin Concent 31.6 g/dL 32.0 g/dL Red Cell Distribution Width 15.2 % 15.0 % Platelet Count 234 10^3/uL 227 10^3/uL Mean Platelet Volume 9.6 fL 10.2 fL Neutrophils (%) (Auto) 38.5 % 34.6 % Lymphocytes (%) (Auto) 51.1 % 52.8 % Monocytes (%) (Auto) 8.4 % 8.6 % Neutrophils # (Auto) 3.6 10^3/uL 2.9 10^3/uL Lymphocytes # (Auto) 4.77 10^3/uL1 4.48 10^3/uL1 Monocytes # (Auto) 0.8 10^3/uL 0.7 10^3/uL Absolute Immature Granulocyte (auto 0.01 10^3 u/L 0.02 10^3 u/L Absolute Eosinophils (auto) 0.1 10^3/uL 0.2 10^3/uL Immature Granulocytes % 0.10 % 0.20 % Eosinophils % 1.0 % 2.7 % Basophils % 0.9 % 1.1 % Basophils # 0.1 10^3/uL 0.1 10^3/uL Prothrombin Time 13.6 SEC Prothrombin Time INR (Non-Therap) 1.3 Activated Partial Thromboplast Time 28.1 SEC D-Dimer 1.58 mg/L Sodium Level 131 mmol/L 138 mmol/L Potassium Level 4.0 mmol/L 4.3 mmol/L Chloride Level 100.0 mmol/L 104.0 mmol/L Carbon Dioxide Level 24.1 mmol/L 23.4 mmol/L Anion Gap 10.9 14.9 Blood Urea Nitrogen 27 mg/dL 29 mg/dL Creatinine 1.73 mg/dL 1.64 mg/dL Estimated GFR () 45.8 48.7 Est GFR (CKD-EPI)(Non-Afr [place]) 37.8 40.2 BUN/Creatinine Ratio 15.0 17.0 Glucose Level 110 mg/dL 112 mg/dL Calcium Level 8.1 mg/dL 8.4 mg/dL Total Bilirubin 0.6 mg/dL 0.5 mg/dL Aspartate Amino Transf (AST/SGOT) 22 U/L 19 U/L Alanine Aminotransferase (ALT/SGPT) 20 U/L 17 U/L Alkaline Phosphatase 90 U/L 92 U/L Total Creatine Kinase 100 U/L Creatine Kinase MB 1.5 ng/mL Troponin I 0.03 ng/mL 0.03 ng/mL < 0.02 ng/mL Pro-B-Type Natriuretic Peptide 16021 pg/mL Total Protein 7.2 g/dL 6.9 g/dL Albumin 3.3 g/dL 3.0 g/dL Globulin 3.9 3.9 Albumin/Globulin Ratio 0.846 0.769 Helicobacter pylori Screen NEGATIVE Current Medications Medications (Trade) Dose Ordered Sig/Sal Route PRN Reason Start Time Stop Time Status Last Admin Dose Admin Aspirin (Aspirin Ec) 81 mg DAILY24 PO 05/15/20 23:30 06/14/20 23:29 05/15/20 23:58 Docusate Sodium (Colace) 100 mg BID PO 05/15/20 23:30 06/14/20 23:29 05/15/20 23:59 Furosemide (Lasix) 20 mg DAILY PRN PO WEIGHT GAIN 05/15/20 23:30 06/14/20 23:29 Gabapentin (Neurontin) 200 mg TID PO 05/16/20 09:00 06/15/20 08:59 Hydralazine HCl (Apresoline) 50 mg BID PO 05/15/20 23:30 06/14/20 23:29 05/16/20 00:01 Levothyroxine Sodium (Synthroid) 75 mcg ACB PO 05/16/20 09:00 06/15/20 08:59 Losartan Potassium (Cozaar) 100 mg DAILY PO 05/16/20 09:00 06/15/20 08:59 Metoprolol Tartrate (Lopresser) 12.5 mg BID PO 05/16/20 09:00 06/15/20 08:59 Pantoprazole Sodium (Protonix) 40 mg BID PO 05/16/20 09:00 06/15/20 08:59 Tamsulosin HCl (Flomax) 0.8 mg DAILY PO 05/16/20 09:00 06/15/20 08:59 Torsemide (Demadex) 20 mg Q48H PO 05/15/20 23:30 06/14/20 23:29 Acetaminophen/ Hydrocodone Bitart ([place] 10mg) 1 each BID PRN PO PAIN MOD 05/15/20 23:30 06/14/20 23:29 Potassium Chloride (Klor-Con 10) 10 meq Q48H PO 05/15/20 23:30 06/14/20 23:29 Furosemide (Lasix) 40 mg STAT STAT IV 05/15/20 23:36 05/16/20 00:06 DC 05/16/20 00:00 Potassium Chloride (Potassium Chloride) 40 meq STAT STAT PO 05/15/20 23:36 05/16/20 00:06 DC 05/15/20 23:59 Docusate Sodium (Colace) 100 mg STK-MED ONCE .ROUTE 05/15/20 23:47 05/15/20 23:49 DC Acetaminophen/ Hydrocodone Bitart ([place] 10mg) 1 each STK-MED ONCE PO 05/15/20 23:49 05/15/20 23:51 DC Aspirin (Aspirin) 81 mg STK-MED ONCE .ROUTE 05/15/20 23:50 05/15/20 23:52 DC Acetaminophen/ Hydrocodone Bitart ([place] 10mg) 1 each OT ONCE PO 05/16/20 00:03 05/16/20 00:04 DC 05/16/20 00:03 Course Sepsis Screening Results: Posi: NEGATIVE Sepsis Qualifier/Stage: NO DEFINITE RISK Duration or Total Time Spent w: 20 m Vitals & review Data Vital Sign - Last 24 Hours 05/15/20 05/15/20 05/15/20 05/16/20 20:12 20:12 20:12 00:00 Temp 98.5 98.5 98.5 Pulse 57 57 57 Resp 18 18 18 B/P (MAP) 157/76 (103) 146/70 Pulse Ox 94 94 05/16/20 05/16/20 05/16/20 00:01 01:45 05:03 Temp 97.7 Pulse 60 60 59 Resp 20 18 B/P (MAP) 146/70 146/70 (95) 132/61 (84) Pulse Ox 97 96 O2 Delivery Room Air Room Air Intake and Output 05/16/20 06:59 Intake Total 240 ml Output Total 1110 ml Balance -870 ml Laboratory Tests Test 05/15/20 20:16 05/16/20 00:56 05/16/20 05:18 White Blood Count 9.3 10^3/uL 8.5 10^3/uL Red Blood Count 3.08 10^6/uL 2.98 10^6/uL Hemoglobin 8.3 g/dL 8.1 g/dL Hematocrit 26.3 % 25.3 % Mean Corpuscular Volume 85.4 fL 84.9 fL Mean Corpuscular Hemoglobin 26.9 pg 27.2 pg Mean Corpuscular Hemoglobin Concent 31.6 g/dL 32.0 g/dL Red Cell Distribution Width 15.2 % 15.0 % Platelet Count 234 10^3/uL 227 10^3/uL Mean Platelet Volume 9.6 fL 10.2 fL Neutrophils (%) (Auto) 38.5 % 34.6 % Lymphocytes (%) (Auto) 51.1 % 52.8 % Monocytes (%) (Auto) 8.4 % 8.6 % Neutrophils # (Auto) 3.6 10^3/uL 2.9 10^3/uL Lymphocytes # (Auto) 4.77 10^3/uL1 4.48 10^3/uL1 Monocytes # (Auto) 0.8 10^3/uL 0.7 10^3/uL Absolute Immature Granulocyte (auto 0.01 10^3 u/L 0.02 10^3 u/L Absolute Eosinophils (auto) 0.1 10^3/uL 0.2 10^3/uL Immature Granulocytes % 0.10 % 0.20 % Eosinophils % 1.0 % 2.7 % Basophils % 0.9 % 1.1 % Basophils # 0.1 10^3/uL 0.1 10^3/uL Prothrombin Time 13.6 SEC Prothrombin Time INR (Non-Therap) 1.3 Activated Partial Thromboplast Time 28.1 SEC D-Dimer 1.58 mg/L Sodium Level 131 mmol/L 138 mmol/L Potassium Level 4.0 mmol/L 4.3 mmol/L Chloride Level 100.0 mmol/L 104.0 mmol/L Carbon Dioxide Level 24.1 mmol/L 23.4 mmol/L Anion Gap 10.9 14.9 Blood Urea Nitrogen 27 mg/dL 29 mg/dL Creatinine 1.73 mg/dL 1.64 mg/dL Estimated GFR () 45.8 48.7 Est GFR (CKD-EPI)(Non-Afr [place]) 37.8 40.2 BUN/Creatinine Ratio 15.0 17.0 Glucose Level 110 mg/dL 112 mg/dL Calcium Level 8.1 mg/dL 8.4 mg/dL Total Bilirubin 0.6 mg/dL 0.5 mg/dL Aspartate Amino Transf (AST/SGOT) 22 U/L 19 U/L Alanine Aminotransferase (ALT/SGPT) 20 U/L 17 U/L Alkaline Phosphatase 90 U/L 92 U/L Total Creatine Kinase 100 U/L Creatine Kinase MB 1.5 ng/mL Troponin I 0.03 ng/mL 0.03 ng/mL < 0.02 ng/mL Pro-B-Type Natriuretic Peptide 05467 pg/mL Total Protein 7.2 g/dL 6.9 g/dL Albumin 3.3 g/dL 3.0 g/dL Globulin 3.9 3.9 Albumin/Globulin Ratio 0.846 0.769 Helicobacter pylori Screen NEGATIVE Current Medications Medications (Trade) Dose Ordered Sig/Sal PRN Reason Start Time Stop Time Status Last Admin Acetaminophen/ Hydrocodone Bitart ([place] 10mg) 1 each BID PRN PAIN MOD 05/15/20 23:30 06/14/20 23:29 Aspirin (Aspirin Ec) 81 mg DAILY24 05/15/20 23:30 06/14/20 23:29 05/15/20 23:58 Docusate Sodium (Colace) 100 mg BID 05/15/20 23:30 06/14/20 23:29 05/15/20 23:59 Furosemide (Lasix) 20 mg DAILY PRN WEIGHT GAIN 05/15/20 23:30 06/14/20 23:29 Gabapentin (Neurontin) 200 mg TID 05/16/20 09:00 06/15/20 08:59 Hydralazine HCl (Apresoline) 50 mg BID 05/15/20 23:30 06/14/20 23:29 05/16/20 00:01 Levothyroxine Sodium (Synthroid) 75 mcg ACB 05/16/20 09:00 06/15/20 08:59 Losartan Potassium (Cozaar) 100 mg DAILY 05/16/20 09:00 06/15/20 08:59 Metoprolol Tartrate (Lopresser) 12.5 mg BID 05/16/20 09:00 06/15/20 08:59 Pantoprazole Sodium (Protonix) 40 mg BID 05/16/20 09:00 06/15/20 08:59 Potassium Chloride (Klor-Con 10) 10 meq Q48H 05/15/20 23:30 06/14/20 23:29 Tamsulosin HCl (Flomax) 0.8 mg DAILY 05/16/20 09:00 06/15/20 08:59 Torsemide (Demadex) 20 mg Q48H 05/15/20 23:30 06/14/20 23:29 Sepsis Infection Criteria Pres: Documented Infection LEVEL 1 SEPSIS INFECTION CRITE: None/Not assessed LEVEL 2-SIRS (LIST ALL THAT AP: None/Not assessed Cardiovascular Evidence: Not Assessed or None Hematologic Evidence: None/Not assessed Hepatic Evidence: None/Not assessed Metabolic Evidence: None/Not assessed Neurological Evidence: None/Not assessed Respiratory Evidence: None/Not assessed Renal Evidence: None/Not assessed O2 Sat by Pulse Oximetry: 93 Assessment/Plan Assessment/Plan Assessment/Plan Assessment: 84-year-old male who presented to the Emergency Department of [facility] with symptoms of left sided chest discomfort for several hours that is better after taking a hydrocodone, generalized weakness, progressively worsening shortness of breath and orthopnea. On presentation to the ED, chest x-ray revealed findings of cardiomegaly and emphysematous changes. He also has a history of severe valvulopathy with severe mitral regurgitation as well as [id number] aortic regurgitation with porcine valve in place. Nonspecific findings on EKG with no clear evidence of acute ischemia, Troponin neg x3. Patient denies fever or change in baseline chronic COPD cough Plan: Chest pain: Resolved no acute ischemia on EKG and troponin is negative will trend troponins x3 overnight continue aspirin and Eliquis cardiology consult appreciate recommendations CHF: Acute decompensated heart failure. IV lasix with potassium will gently diuresis given acute on chronic renal sufficiency. BNP does appear to be above baseline we will plan on obtaining echocardiogram in the a.m. 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 Strict I & O's appreciate cardiology recommendations and assistance on the case. Acute on chronic renal insufficiency: Monitor closely with diuresis avoid nephrotoxic medications. Chronic anemia: On aspirin and Eliquis will continue Protonix gastroprotective effect and likely chronic blood loss anemia trend hemoglobin Paroxysmal atrial flutter: continue rate control medications Hypothyroidism: continue levothyroxine Restart home medications for other chronic health problems as indicated Full Code Home tomorrow RAJ,TYRESE Peña MD May 17, 2020 09:17
--- NOTE | 2020-05-17 11:03 | PRM.PN ---
Subjective Subjective Date: May 17, 2020 Time: 10:55 Subjective Patient resting comfortably. SOB improving No chest pain Review of Systems Constitutional: Weakness Eyes: No: Pain, Vision change, Conjunctivae inflammation, Eyelid inflammation, Other, Redness ENT: No: Ear pain, Ear discharge, Nose pain, Nose discharge, Nose congestion, Mouth pain, Mouth swelling, Throat pain, Throat swelling, Other Respiratory: No: Cough, Dry, Shortness of breath, SOB with excertion, Wheezing, Hemoptysis, Pleuritic Pain, Sputum, Wheezing, Other Cardiovascular: No: Chest Pain, Palpitations, Orthopnea, Paroxysmal Noc. Dyspnea, Edema, Lt Headedness, Other Gastrointestinal: No: Nausea, Vomiting, Abdominal Pain, Diarrhea, Constipation, Melena, Hematochezia, Other Genitourinary: No Dysuria, No Frequency, No Incontinence, No Hematuria, No Retention, No Other Musculoskeletal: No: other, neck pain, shoulder pain, arm pain, back pain, hand pain, leg pain, foot pain Skin: No: Rash, Lesions, Jaundice, Bruising, Other Neurological: No: Numbness, Incoordination, Change in speech, Confusion, Seizures, Other Allergies: Coded Allergies: atorvastatin (Verified Allergy, Severe, MUSCLE WEAKNESS, 03/10/20) hydrochlorothiazide (Verified Allergy, Severe, HYPONATREMIA, 03/10/20) amlodipine (Verified Allergy, Intermediate, Swelling, 03/10/20) "MAKES ME RETAIN WATER REAL BAD" pregabalin (Verified Allergy, Intermediate, 03/10/20) BLURRED VISION butorphanol (Verified Allergy, Unknown, HALLUCINATIONS, 03/10/20) ibuprofen (Verified Allergy, Unknown, 03/10/20) INSTRUCTED BY DR NOT TO TAKE lisinopril (Verified Allergy, Unknown, 03/10/20) Scheduled Apixaban (Eliquis), 5 MG PO BID, (Reported) Aspirin (Aspir 81), 1 TAB PO DAILY24, (Reported) Docusate Sodium (Easy-Lax), 100 MG PO BID Gabapentin (Gabapentin), 2 CAP PO TID, (Reported) Hydralazine Hcl (Hydralazine Hcl), 2 TAB PO BID, (Reported) Levothyroxine Sodium (Levothyroxine Sodium), 1 TAB PO DAILY, (Reported) Losartan Potassium (Losartan Potassium), 2 TAB PO DAILY, (Reported) Metoprolol Tartrate 25MG ([place] 25MG), 12.5 MG PO BID Omeprazole (Omeprazole), 1 CAP PO BID, (Reported) Potassium Chloride (Potassium Chloride), 10 MEQ PO Q48H, (Reported) Tamsulosin Hcl (Flomax), 2 CAP PO DAILY, (Reported) Tiotropium Br/Olodaterol HCl (Stiolto Respimat Inhal [place]), 2 PUFF IH DAILY24, (Reported) Torsemide (Torsemide), 1 TAB PO Q48H, (Reported) Torsemide (Torsemide), 1 TAB PO Q48H, (Reported) Scheduled PRN Furosemide (Furosemide), 1 TAB PO DAILY PRN for WEIGHT GAIN, (Reported) Hydrocodone Bit/Acetaminophen (Hydrocodon-Acetaminophn 10-300), 1 TAB PO BID PRN for PAIN MODERATE, (Reported) Objective Vitals and I/O Vital Sign - Last 24 Hours 05/16/20 05/16/20 05/16/20 05/16/20 11:16 11:45 12:04 16:20 Temp 98.1 98.3 Pulse 54 61 Resp 18 18 B/P (MAP) 127/66 (86) 127/66 118/63 (81) Pulse Ox 96 O2 Delivery Room Air Room Air 05/16/20 05/16/20 05/16/20 05/16/20 20:08 20:08 20:12 20:13 Temp 98.2 Pulse 62 62 62 Resp 18 B/P (MAP) 137/62 (87) 137/62 137/62 Pulse Ox 97 O2 Delivery Room Air Room Air 05/16/20 05/17/20 05/17/20 05/17/20 23:40 04:38 05:56 08:15 Temp 98.0 97.9 97.9 Pulse 57 58 61 Resp 18 18 18 B/P (MAP) 126/52 (76) 111/49 (69) 132/61 (84) Pulse Ox 95 93 95 O2 Delivery Room Air Room Air Room Air Room Air 05/17/20 05/17/20 05/17/20 05/17/20 09:00 09:00 09:00 09:00 Pulse 61 61 B/P (MAP) 132/61 132/61 132/61 132/61 Intake and Output 05/17/20 07:00 Intake Total 886 ml Output Total 2585 ml Balance -1699 ml General: Alert, Oriented X3 HEENT: Atraumatic, PERRLA, EOMI Neck: Supple, No JVD, No thyromegaly Lungs: Clear to auscultation, Normal air movement Heart: Regular rate, Normal S1, Normal S2, Other (3/6 holosystolic murmur) Abdomen: Normal bowel sounds Extremities: No clubbing Neuro: Normal speech, Strength at 5/5 X4 ext Psych/Mental Status: Mental status NL, Mood NL All Results(Lab/Rad) Laboratory Tests Test 05/15/20 20:16 05/16/20 00:56 05/16/20 05:18 White Blood Count 9.3 10^3/uL 8.5 10^3/uL Red Blood Count 3.08 10^6/uL 2.98 10^6/uL Hemoglobin 8.3 g/dL 8.1 g/dL Hematocrit 26.3 % 25.3 % Mean Corpuscular Volume 85.4 fL 84.9 fL Mean Corpuscular Hemoglobin 26.9 pg 27.2 pg Mean Corpuscular Hemoglobin Concent 31.6 g/dL 32.0 g/dL Red Cell Distribution Width 15.2 % 15.0 % Platelet Count 234 10^3/uL 227 10^3/uL Mean Platelet Volume 9.6 fL 10.2 fL Neutrophils (%) (Auto) 38.5 % 34.6 % Lymphocytes (%) (Auto) 51.1 % 52.8 % Monocytes (%) (Auto) 8.4 % 8.6 % Neutrophils # (Auto) 3.6 10^3/uL 2.9 10^3/uL Lymphocytes # (Auto) 4.77 10^3/uL1 4.48 10^3/uL1 Monocytes # (Auto) 0.8 10^3/uL 0.7 10^3/uL Absolute Immature Granulocyte (auto 0.01 10^3 u/L 0.02 10^3 u/L Absolute Eosinophils (auto) 0.1 10^3/uL 0.2 10^3/uL Immature Granulocytes % 0.10 % 0.20 % Eosinophils % 1.0 % 2.7 % Basophils % 0.9 % 1.1 % Basophils # 0.1 10^3/uL 0.1 10^3/uL Prothrombin Time 13.6 SEC Prothrombin Time INR (Non-Therap) 1.3 Activated Partial Thromboplast Time 28.1 SEC D-Dimer 1.58 mg/L Sodium Level 131 mmol/L 138 mmol/L Potassium Level 4.0 mmol/L 4.3 mmol/L Chloride Level 100.0 mmol/L 104.0 mmol/L Carbon Dioxide Level 24.1 mmol/L 23.4 mmol/L Anion Gap 10.9 14.9 Blood Urea Nitrogen 27 mg/dL 29 mg/dL Creatinine 1.73 mg/dL 1.64 mg/dL Estimated GFR () 45.8 48.7 Est GFR (CKD-EPI)(Non-Afr [place]) 37.8 40.2 BUN/Creatinine Ratio 15.0 17.0 Glucose Level 110 mg/dL 112 mg/dL Calcium Level 8.1 mg/dL 8.4 mg/dL Total Bilirubin 0.6 mg/dL 0.5 mg/dL Aspartate Amino Transf (AST/SGOT) 22 U/L 19 U/L Alanine Aminotransferase (ALT/SGPT) 20 U/L 17 U/L Alkaline Phosphatase 90 U/L 92 U/L Total Creatine Kinase 100 U/L Creatine Kinase MB 1.5 ng/mL Troponin I 0.03 ng/mL 0.03 ng/mL < 0.02 ng/mL Pro-B-Type Natriuretic Peptide 89849 pg/mL Total Protein 7.2 g/dL 6.9 g/dL Albumin 3.3 g/dL 3.0 g/dL Globulin 3.9 3.9 Albumin/Globulin Ratio 0.846 0.769 Helicobacter pylori Screen NEGATIVE Current Medications Medications (Trade) Dose Ordered Sig/Sal Route PRN Reason Start Time Stop Time Status Last Admin Dose Admin Aspirin (Aspirin Ec) 81 mg DAILY24 PO 05/15/20 23:30 06/14/20 23:29 05/15/20 23:58 Docusate Sodium (Colace) 100 mg BID PO 05/15/20 23:30 06/14/20 23:29 05/15/20 23:59 Furosemide (Lasix) 20 mg DAILY PRN PO WEIGHT GAIN 05/15/20 23:30 06/14/20 23:29 Gabapentin (Neurontin) 200 mg TID PO 05/16/20 09:00 06/15/20 08:59 Hydralazine HCl (Apresoline) 50 mg BID PO 05/15/20 23:30 06/14/20 23:29 05/16/20 00:01 Levothyroxine Sodium (Synthroid) 75 mcg ACB PO 05/16/20 09:00 06/15/20 08:59 Losartan Potassium (Cozaar) 100 mg DAILY PO 05/16/20 09:00 06/15/20 08:59 Metoprolol Tartrate (Lopresser) 12.5 mg BID PO 05/16/20 09:00 06/15/20 08:59 Pantoprazole Sodium (Protonix) 40 mg BID PO 05/16/20 09:00 06/15/20 08:59 Tamsulosin HCl (Flomax) 0.8 mg DAILY PO 05/16/20 09:00 06/15/20 08:59 Torsemide (Demadex) 20 mg Q48H PO 05/15/20 23:30 06/14/20 23:29 Acetaminophen/ Hydrocodone Bitart ([place] 10mg) 1 each BID PRN PO PAIN MOD 05/15/20 23:30 06/14/20 23:29 Potassium Chloride (Klor-Con 10) 10 meq Q48H PO 05/15/20 23:30 06/14/20 23:29 Furosemide (Lasix) 40 mg STAT STAT IV 05/15/20 23:36 05/16/20 00:06 DC 05/16/20 00:00 Potassium Chloride (Potassium Chloride) 40 meq STAT STAT PO 05/15/20 23:36 05/16/20 00:06 DC 05/15/20 23:59 Docusate Sodium (Colace) 100 mg STK-MED ONCE .ROUTE 05/15/20 23:47 05/15/20 23:49 DC Acetaminophen/ Hydrocodone Bitart ([place] 10mg) 1 each STK-MED ONCE PO 05/15/20 23:49 05/15/20 23:51 DC Aspirin (Aspirin) 81 mg STK-MED ONCE .ROUTE 05/15/20 23:50 05/15/20 23:52 DC Acetaminophen/ Hydrocodone Bitart ([place] 10mg) 1 each OT ONCE PO 05/16/20 00:03 05/16/20 00:04 DC 05/16/20 00:03 Assessment/Plan Assessment/Plan Assessment/Plan 1. Acute decompensated heart failure secondary to diastolic dysfunction. 2. Severe mitral regurgitation. 3. Severe aortic regurgitation. 4. History of bioprosthetic aortic valve replacement done in 2007. 5. Paroxysmal atrial flutter, on Eliquis. 6. Nonobstructive coronary artery disease by left heart catheterization done, 09/2019. 7. Chronic obstructive pulmonary disease. 8. Hypertension. 9. Obstructive sleep apnea. 10. Type 2 diabetes mellitus. 11. Carotid artery disease. 12. Severe TR 13. LVEF 60% Plan Continue diuretics/ARB/BB Severe Valvulopathy involving the aortic/mitral/tricuspid valves--Patient not interested in surgical invasive therapies Will continue with medical mgt at this time Fluid restriction/Strict I and O's/Daily weights/Na restriction Normal LVEF on echo Continue OAC for PAFlutter Monitor on tele Daily labs Patient near euvolemia ALTHEA PUENTES DO May 17, 2020 11:03
[2020-05-17 12:36] VITALS: BP 111/64
--- NOTE | 2020-05-17 12:42 | NUR ---
Noon meal served, Patient sitting on side of bed
[2020-05-17 16:45] VITALS: BP 140/50
[2020-05-17] MEDS: NORCO 10MG PO PRN (18:20)
[2020-05-17 19:52] VITALS: BP 112/55
[2020-05-17] MEDS: TYLENOL PO PRN (22:20)
[2020-05-18] MEDS: ASPIRIN EC PO SCH (00:05)
[2020-05-18 00:25] VITALS: BP 127/47
[2020-05-18 04:28] VITALS: BP 123/53
[2020-05-18 05:32] LABS: BASOPHIL # 0.1 10^3/uL (0.0-0.1); BASOPHIL % 0.9 % (0.0-0.2); EOSINOPHIL # 0.3 10^3/uL (0.0-0.2); LYMPHOCYTES # 4.37 10^3/uL1 (1.0-4.8); LYMPHOCYTES % 50.2 % (24.0-44.0); MEAN CORP HGB 26.8 pg (26-34); MONOCYTES # 0.7 10^3/uL (0.3-0.8); MONOCYTES % 8.3 % (5.0-12.0); NEUTROPHIL # 3.3 10^3/uL (1.8-7.7); NEUTROPHILS % 37.5 % (41.0-85.0); PLATELET COUNT 230 10^3/uL (150-400); RED CELL DISTRIBUTION WIDTH 15.3 % (11.5-14.5)
[2020-05-18 05:57] LABS: CALCIUM 8.6 mg/dL (8.4-10.5); CARBON DIOXIDE 25.4 mmol/L (20.0-32)
[2020-05-18] MEDS: SYNTHROID PO SCH (06:11)
[2020-05-18 07:33] VITALS: BP 125/58
--- NOTE | 2020-05-18 08:32 | PRM.PN ---
Subjective Subjective Date: May 18, 2020 Time: 08:32 Subjective Patient resting comfortably. SOB improving No chest pain Patient History: FH: cancer G8 BROTHER, , Age:50's - 60 G8 BROTHER, , Age:50's - 60 Hypertension 33 FATHER, , Age:61 No Family History of: Alzheimer's disease Asthma Congestive heart failure Parkinson's disease Unknown VTE VTE Risk Total Score: >5 VTE Risk Score VTE Risk: Score 0-1 = Low Risk (Aggressive mobilization; early ambulation; no VTE prophylaxis required) Score 2: Moderate Risk (Intermittent/Pneumatic Compression Device OR Lovenox/Heparin/Coumadin) Score 3-4: High Risk (Intermittent/Pneumatic Compression Device AND Lovenox/Heparin/Coumadin) Score > or =5: Highest Risk (Intermittent/Pneumatic Compression Device AND Lovenox/Heparin/Coumadin) Antico:Hep/LMWH/Coum/Xarelto: Yes Mechanical device ordered: Yes Reasons not ordering prophylax: Renal impairment Review of Systems Constitutional: Weakness Eyes: No: Pain, Vision change, Conjunctivae inflammation, Eyelid inflammation, Other, Redness ENT: No: Ear pain, Ear discharge, Nose pain, Nose discharge, Nose congestion, Mouth pain, Mouth swelling, Throat pain, Throat swelling, Other Respiratory: SOB with excertion Cardiovascular: Orthopnea; No: Chest Pain Gastrointestinal: No: Nausea, Vomiting, Abdominal Pain, Diarrhea, Constipation, Melena, Hematochezia, Other Genitourinary: No Dysuria, No Frequency, No Incontinence, No Hematuria, No Retention, No Other Musculoskeletal: No: other, neck pain, shoulder pain, arm pain, back pain, hand pain, leg pain, foot pain Skin: No: Rash, Lesions, Jaundice, Bruising, Other Neurological: No: Numbness, Incoordination, Change in speech, Confusion, Seizures, Other Allergies: Coded Allergies: atorvastatin (Verified Allergy, Severe, MUSCLE WEAKNESS, 03/10/20) hydrochlorothiazide (Verified Allergy, Severe, HYPONATREMIA, 03/10/20) amlodipine (Verified Allergy, Intermediate, Swelling, 03/10/20) "MAKES ME RETAIN WATER REAL BAD" pregabalin (Verified Allergy, Intermediate, 03/10/20) BLURRED VISION butorphanol (Verified Allergy, Unknown, HALLUCINATIONS, 03/10/20) ibuprofen (Verified Allergy, Unknown, 03/10/20) INSTRUCTED BY DR NOT TO TAKE lisinopril (Verified Allergy, Unknown, 03/10/20) Scheduled Apixaban (Eliquis), 5 MG PO BID, (Reported) Aspirin (Aspir 81), 1 TAB PO DAILY24, (Reported) Docusate Sodium (Easy-Lax), 100 MG PO BID Furosemide (Lasix), 40 MG PO DAILY24 Gabapentin (Gabapentin), 2 CAP PO TID, (Reported) Hydralazine Hcl (Hydralazine Hcl), 2 TAB PO BID, (Reported) Levothyroxine Sodium (Levothyroxine Sodium), 1 TAB PO DAILY, (Reported) Losartan Potassium (Losartan Potassium), 2 TAB PO DAILY, (Reported) Metoprolol Tartrate 25MG (Lopresser 25MG), 12.5 MG PO BID Omeprazole (Omeprazole), 1 CAP PO BID, (Reported) Potassium Chloride (Potassium Chloride), 20 MEQ PO DAILY24 Tamsulosin Hcl (Flomax), 2 CAP PO DAILY, (Reported) Tiotropium Br/Olodaterol HCl (Stiolto Respimat Inhal [place]), 2 PUFF IH DAILY24, (Reported) Torsemide (Torsemide), 1 TAB PO Q48H, (Reported) Scheduled PRN Hydrocodone Bit/Acetaminophen (Hydrocodon-Acetaminophn 10-300), 1 TAB PO BID PRN for PAIN MODERATE, (Reported) Discontinued Medications Furosemide (Furosemide), 1 TAB PO DAILY PRN for WEIGHT GAIN, (Reported) Discontinued Reason: Discontinue Potassium Chloride (Potassium Chloride), 10 MEQ PO Q48H, (Reported) Discontinued Reason: Discontinue Torsemide (Torsemide), 1 TAB PO Q48H, (Reported) Discontinued Reason: Discontinue Objective Vitals and I/O Vital Sign - Last 24 Hours 05/17/20 05/17/20 05/17/20 05/17/20 09:00 09:00 09:00 09:00 Pulse 61 61 B/P (MAP) 132/61 132/61 132/61 132/61 05/17/20 05/17/20 05/17/20 05/17/20 12:36 16:45 19:52 20:59 Temp 98.0 97.9 98.1 Pulse 60 57 62 62 Resp 20 16 18 B/P (MAP) 111/64 (80) 140/50 (80) 112/55 (74) 112/55 Pulse Ox 93 98 96 O2 Delivery Room Air Room Air Room Air 05/17/20 05/18/20 05/18/20 05/18/20 21:00 00:25 01:15 04:28 Temp 98.2 97.6 Pulse 62 54 57 Resp 18 18 B/P (MAP) 112/55 127/47 (73) 123/53 (76) Pulse Ox 93 95 O2 Delivery Room Air Room Air Room Air 05/18/20 05/18/20 05/18/20 05:02 07:33 07:34 Temp 98.1 Pulse 60 Resp 18 B/P (MAP) 125/58 (80) Pulse Ox 95 O2 Delivery Room Air Room Air Room Air Intake and Output 05/18/20 07:00 Intake Total 480 ml Output Total 450 ml Balance 30 ml General: Alert, Oriented X3 HEENT: Atraumatic, PERRLA, EOMI Neck: Supple, No JVD, No thyromegaly Lungs: Normal air movement, Other (Mildly diminished) Heart: Regular rate, Other (3/6 holosystolic murmur) Abdomen: Normal bowel sounds Extremities: No clubbing Skin: No rashes, No breakdown Neuro: Normal speech, Strength at 5/5 X4 ext Psych/Mental Status: Mental status NL, Mood NL All Results(Lab/Rad) Laboratory Tests Test 05/15/20 20:16 05/16/20 00:56 05/16/20 05:18 White Blood Count 9.3 10^3/uL 8.5 10^3/uL Red Blood Count 3.08 10^6/uL 2.98 10^6/uL Hemoglobin 8.3 g/dL 8.1 g/dL Hematocrit 26.3 % 25.3 % Mean Corpuscular Volume 85.4 fL 84.9 fL Mean Corpuscular Hemoglobin 26.9 pg 27.2 pg Mean Corpuscular Hemoglobin Concent 31.6 g/dL 32.0 g/dL Red Cell Distribution Width 15.2 % 15.0 % Platelet Count 234 10^3/uL 227 10^3/uL Mean Platelet Volume 9.6 fL 10.2 fL Neutrophils (%) (Auto) 38.5 % 34.6 % Lymphocytes (%) (Auto) 51.1 % 52.8 % Monocytes (%) (Auto) 8.4 % 8.6 % Neutrophils # (Auto) 3.6 10^3/uL 2.9 10^3/uL Lymphocytes # (Auto) 4.77 10^3/uL1 4.48 10^3/uL1 Monocytes # (Auto) 0.8 10^3/uL 0.7 10^3/uL Absolute Immature Granulocyte (auto 0.01 10^3 u/L 0.02 10^3 u/L Absolute Eosinophils (auto) 0.1 10^3/uL 0.2 10^3/uL Immature Granulocytes % 0.10 % 0.20 % Eosinophils % 1.0 % 2.7 % Basophils % 0.9 % 1.1 % Basophils # 0.1 10^3/uL 0.1 10^3/uL Prothrombin Time 13.6 SEC Prothrombin Time INR (Non-Therap) 1.3 Activated Partial Thromboplast Time 28.1 SEC D-Dimer 1.58 mg/L Sodium Level 131 mmol/L 138 mmol/L Potassium Level 4.0 mmol/L 4.3 mmol/L Chloride Level 100.0 mmol/L 104.0 mmol/L Carbon Dioxide Level 24.1 mmol/L 23.4 mmol/L Anion Gap 10.9 14.9 Blood Urea Nitrogen 27 mg/dL 29 mg/dL Creatinine 1.73 mg/dL 1.64 mg/dL Estimated GFR () 45.8 48.7 Est GFR (CKD-EPI)(Non-Afr British) 37.8 40.2 BUN/Creatinine Ratio 15.0 17.0 Glucose Level 110 mg/dL 112 mg/dL Calcium Level 8.1 mg/dL 8.4 mg/dL Total Bilirubin 0.6 mg/dL 0.5 mg/dL Aspartate Amino Transf (AST/SGOT) 22 U/L 19 U/L Alanine Aminotransferase (ALT/SGPT) 20 U/L 17 U/L Alkaline Phosphatase 90 U/L 92 U/L Total Creatine Kinase 100 U/L Creatine Kinase MB 1.5 ng/mL Troponin I 0.03 ng/mL 0.03 ng/mL < 0.02 ng/mL Pro-B-Type Natriuretic Peptide 51124 pg/mL Total Protein 7.2 g/dL 6.9 g/dL Albumin 3.3 g/dL 3.0 g/dL Globulin 3.9 3.9 Albumin/Globulin Ratio 0.846 0.769 Helicobacter pylori Screen NEGATIVE Current Medications Medications (Trade) Dose Ordered Sig/Sal Route PRN Reason Start Time Stop Time Status Last Admin Dose Admin Aspirin (Aspirin Ec) 81 mg DAILY24 PO 05/15/20 23:30 06/14/20 23:29 05/15/20 23:58 Docusate Sodium (Colace) 100 mg BID PO 05/15/20 23:30 06/14/20 23:29 05/15/20 23:59 Furosemide (Lasix) 20 mg DAILY PRN PO WEIGHT GAIN 05/15/20 23:30 06/14/20 23:29 Gabapentin (Neurontin) 200 mg TID PO 05/16/20 09:00 06/15/20 08:59 Hydralazine HCl (Apresoline) 50 mg BID PO 05/15/20 23:30 06/14/20 23:29 05/16/20 00:01 Levothyroxine Sodium (Synthroid) 75 mcg ACB PO 05/16/20 09:00 06/15/20 08:59 Losartan Potassium (Cozaar) 100 mg DAILY PO 05/16/20 09:00 06/15/20 08:59 Metoprolol Tartrate (Lopresser) 12.5 mg BID PO 05/16/20 09:00 06/15/20 08:59 Pantoprazole Sodium (Protonix) 40 mg BID PO 05/16/20 09:00 06/15/20 08:59 Tamsulosin HCl (Flomax) 0.8 mg DAILY PO 05/16/20 09:00 06/15/20 08:59 Torsemide (Demadex) 20 mg Q48H PO 05/15/20 23:30 06/14/20 23:29 Acetaminophen/ Hydrocodone Bitart ([place] 10mg) 1 each BID PRN PO PAIN MOD 05/15/20 23:30 06/14/20 23:29 Potassium Chloride (Klor-Con 10) 10 meq Q48H PO 05/15/20 23:30 06/14/20 23:29 Furosemide (Lasix) 40 mg STAT STAT IV 05/15/20 23:36 05/16/20 00:06 DC 05/16/20 00:00 Potassium Chloride (Potassium Chloride) 40 meq STAT STAT PO 05/15/20 23:36 05/16/20 00:06 DC 05/15/20 23:59 Docusate Sodium (Colace) 100 mg STK-MED ONCE .ROUTE 05/15/20 23:47 05/15/20 23:49 DC Acetaminophen/ Hydrocodone Bitart ([place] 10mg) 1 each STK-MED ONCE PO 05/15/20 23:49 05/15/20 23:51 DC Aspirin (Aspirin) 81 mg STK-MED ONCE .ROUTE 05/15/20 23:50 05/15/20 23:52 DC Acetaminophen/ Hydrocodone Bitart ([place] 10mg) 1 each OT ONCE PO 05/16/20 00:03 05/16/20 00:04 DC 05/16/20 00:03 Course Sepsis Screening Results: Posi: NEGATIVE Sepsis Qualifier/Stage: NO DEFINITE RISK Duration or Total Time Spent w: 20 m Vitals & review Data Vital Sign - Last 24 Hours 05/15/20 05/15/20 05/15/20 05/16/20 20:12 20:12 20:12 00:00 Temp 98.5 98.5 98.5 Pulse 57 57 57 Resp 18 18 18 B/P (MAP) 157/76 (103) 146/70 Pulse Ox 94 94 05/16/20 05/16/20 05/16/20 00:01 01:45 05:03 Temp 97.7 Pulse 60 60 59 Resp 20 18 B/P (MAP) 146/70 146/70 (95) 132/61 (84) Pulse Ox 97 96 O2 Delivery Room Air Room Air Intake and Output 05/16/20 06:59 Intake Total 240 ml Output Total 1110 ml Balance -870 ml Laboratory Tests Test 05/15/20 20:16 05/16/20 00:56 05/16/20 05:18 White Blood Count 9.3 10^3/uL 8.5 10^3/uL Red Blood Count 3.08 10^6/uL 2.98 10^6/uL Hemoglobin 8.3 g/dL 8.1 g/dL Hematocrit 26.3 % 25.3 % Mean Corpuscular Volume 85.4 fL 84.9 fL Mean Corpuscular Hemoglobin 26.9 pg 27.2 pg Mean Corpuscular Hemoglobin Concent 31.6 g/dL 32.0 g/dL Red Cell Distribution Width 15.2 % 15.0 % Platelet Count 234 10^3/uL 227 10^3/uL Mean Platelet Volume 9.6 fL 10.2 fL Neutrophils (%) (Auto) 38.5 % 34.6 % Lymphocytes (%) (Auto) 51.1 % 52.8 % Monocytes (%) (Auto) 8.4 % 8.6 % Neutrophils # (Auto) 3.6 10^3/uL 2.9 10^3/uL Lymphocytes # (Auto) 4.77 10^3/uL1 4.48 10^3/uL1 Monocytes # (Auto) 0.8 10^3/uL 0.7 10^3/uL Absolute Immature Granulocyte (auto 0.01 10^3 u/L 0.02 10^3 u/L Absolute Eosinophils (auto) 0.1 10^3/uL 0.2 10^3/uL Immature Granulocytes % 0.10 % 0.20 % Eosinophils % 1.0 % 2.7 % Basophils % 0.9 % 1.1 % Basophils # 0.1 10^3/uL 0.1 10^3/uL Prothrombin Time 13.6 SEC Prothrombin Time INR (Non-Therap) 1.3 Activated Partial Thromboplast Time 28.1 SEC D-Dimer 1.58 mg/L Sodium Level 131 mmol/L 138 mmol/L Potassium Level 4.0 mmol/L 4.3 mmol/L Chloride Level 100.0 mmol/L 104.0 mmol/L Carbon Dioxide Level 24.1 mmol/L 23.4 mmol/L Anion Gap 10.9 14.9 Blood Urea Nitrogen 27 mg/dL 29 mg/dL Creatinine 1.73 mg/dL 1.64 mg/dL Estimated GFR () 45.8 48.7 Est GFR (CKD-EPI)(Non-Afr British) 37.8 40.2 BUN/Creatinine Ratio 15.0 17.0 Glucose Level 110 mg/dL 112 mg/dL Calcium Level 8.1 mg/dL 8.4 mg/dL Total Bilirubin 0.6 mg/dL 0.5 mg/dL Aspartate Amino Transf (AST/SGOT) 22 U/L 19 U/L Alanine Aminotransferase (ALT/SGPT) 20 U/L 17 U/L Alkaline Phosphatase 90 U/L 92 U/L Total Creatine Kinase 100 U/L Creatine Kinase MB 1.5 ng/mL Troponin I 0.03 ng/mL 0.03 ng/mL < 0.02 ng/mL Pro-B-Type Natriuretic Peptide 83663 pg/mL Total Protein 7.2 g/dL 6.9 g/dL Albumin 3.3 g/dL 3.0 g/dL Globulin 3.9 3.9 Albumin/Globulin Ratio 0.846 0.769 Helicobacter pylori Screen NEGATIVE Current Medications Medications (Trade) Dose Ordered Sig/Sal PRN Reason Start Time Stop Time Status Last Admin Acetaminophen/ Hydrocodone Bitart ([place] 10mg) 1 each BID PRN PAIN MOD 05/15/20 23:30 06/14/20 23:29 Aspirin (Aspirin Ec) 81 mg DAILY24 05/15/20 23:30 06/14/20 23:29 05/15/20 23:58 Docusate Sodium (Colace) 100 mg BID 05/15/20 23:30 06/14/20 23:29 05/15/20 23:59 Furosemide (Lasix) 20 mg DAILY PRN WEIGHT GAIN 05/15/20 23:30 06/14/20 23:29 Gabapentin (Neurontin) 200 mg TID 05/16/20 09:00 06/15/20 08:59 Hydralazine HCl (Apresoline) 50 mg BID 05/15/20 23:30 06/14/20 23:29 05/16/20 00:01 Levothyroxine Sodium (Synthroid) 75 mcg ACB 05/16/20 09:00 06/15/20 08:59 Losartan Potassium (Cozaar) 100 mg DAILY 05/16/20 09:00 06/15/20 08:59 Metoprolol Tartrate (Lopresser) 12.5 mg BID 05/16/20 09:00 06/15/20 08:59 Pantoprazole Sodium (Protonix) 40 mg BID 05/16/20 09:00 06/15/20 08:59 Potassium Chloride (Klor-Con 10) 10 meq Q48H 05/15/20 23:30 06/14/20 23:29 Tamsulosin HCl (Flomax) 0.8 mg DAILY 05/16/20 09:00 06/15/20 08:59 Torsemide (Demadex) 20 mg Q48H 05/15/20 23:30 06/14/20 23:29 Sepsis Infection Criteria Pres: Documented Infection LEVEL 1 SEPSIS INFECTION CRITE: None/Not assessed LEVEL 2-SIRS (LIST ALL THAT AP: None/Not assessed Cardiovascular Evidence: Not Assessed or None Hematologic Evidence: None/Not assessed Hepatic Evidence: None/Not assessed Metabolic Evidence: None/Not assessed Neurological Evidence: None/Not assessed Respiratory Evidence: None/Not assessed Renal Evidence: None/Not assessed O2 Sat by Pulse Oximetry: 95 Assessment/Plan Assessment/Plan Assessment/Plan 1. Acute decompensated heart failure secondary to diastolic dysfunction. 2. Severe mitral regurgitation. 3. Severe aortic regurgitation. 4. History of bioprosthetic aortic valve replacement done in 2007. 5. Paroxysmal atrial flutter, on Eliquis. 6. Nonobstructive coronary artery disease by left heart catheterization done, 09/2019. 7. Chronic obstructive pulmonary disease. 8. Hypertension. 9. Obstructive sleep apnea. 10. Type 2 diabetes mellitus. 11. Carotid artery disease. 12. Severe TR 13. 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
[2020-05-18] MEDS ORDERED: POTA20TA14 PO (08:36)
[2020-05-18] MEDS ORDERED: FURO-80 PO (08:36)
--- NOTE | 2020-05-18 08:37 | PRM.DC ---
Subjective Subjective Date of Discharge: May 18, 2020 Time of Request to Discharge: 08:37 Subjective HISTORY OF PRESENT ILLNESS: This is an 84-year-old male who presented to the Emergency Department of [facility] with symptoms of progressively worsening shortness of breath with associated orthopnea and paroxysmal nocturnal dyspnea. He was also noted to have episodes of chest discomfort. Upon presentation to the ED, EKG shows atrial flutter, which is known to him with controlled ventricular response. ProBNP was noted to be 1 2601. Troponin is currently negative x 3. A consultation has been placed to Cardiology service for evaluation for acute decompensated heart failure. The patient has a known history of severe valvulopathy with severe mitral regurgitation as well as [id number] aortic regurgitation. Patient was diuresed with excellent results and ECHO showed: The left ventricular systolic function is normal. LVEF is 60%. Left atrium is moderately dilated. Right atrium is severely dilated. Bioprosthetic aortic valve is present. Prosthetic aortic valve is grossly normal in appearance. Severe aortic regurgitation. Severe mitral regurgitation. Severe tricuspid regurgitation. Moderate pulmonic regurgitation. IVC is dilated. Matilda recommended medical management with increased diuretic dose on discharge Patient History: FH: cancer G8 BROTHER, , Age:50's - 60 G8 BROTHER, , Age:50's - 60 Hypertension 33 FATHER, , Age:61 No Family History of: Alzheimer's disease Asthma Congestive heart failure Parkinson's disease Unknown Exam Vital Signs Vital Signs Date Time Temp Pulse Resp B/P (MAP) Pulse Ox O2 Delivery O2 Flow Rate FiO2 05/18/20 07:34 Room Air 05/18/20 07:33 98.1 60 18 125/58 (80) 95 General Appearance: Alert, Oriented X3, Cooperative, No acute distress HEENT: Atraumatic, PERRLA Respiratory: Clear to auscultation Cardiovascular: Regular rate, Other (Cardiac murmur present) Abdominal: Normal bowel sounds Extremities: No edema Skin: No rash, No breakdown Neuro: Normal gait, Normal speech, Strength at 5/5 X4 ext Psych/Mental Status: Mental status NL VTE VTE Risk Total Score: >5 VTE Risk Score VTE Risk: Score 0-1 = Low Risk (Aggressive mobilization; early ambulation; no VTE prophylaxis required) Score 2: Moderate Risk (Intermittent/Pneumatic Compression Device OR Lovenox/Heparin/Coumadin) Score 3-4: High Risk (Intermittent/Pneumatic Compression Device AND Lovenox/Heparin/Coumadin) Score > or =5: Highest Risk (Intermittent/Pneumatic Compression Device AND Lovenox/Heparin/Coumadin) Antico:Hep/LMWH/Coum/Xarelto: Yes Mechanical device ordered: Yes Reasons not ordering prophylax: Renal impairment Objective Vitals and I/O Vital Sign - Last 24 Hours 05/17/20 05/17/20 05/17/20 05/17/20 09:00 09:00 09:00 09:00 Pulse 61 61 B/P (MAP) 132/61 132/61 132/61 132/61 05/17/20 05/17/20 05/17/20 05/17/20 12:36 16:45 19:52 20:59 Temp 98.0 97.9 98.1 Pulse 60 57 62 62 Resp 20 16 18 B/P (MAP) 111/64 (80) 140/50 (80) 112/55 (74) 112/55 Pulse Ox 93 98 96 O2 Delivery Room Air Room Air Room Air 05/17/20 05/18/20 05/18/20 05/18/20 21:00 00:25 01:15 04:28 Temp 98.2 97.6 Pulse 62 54 57 Resp 18 18 B/P (MAP) 112/55 127/47 (73) 123/53 (76) Pulse Ox 93 95 O2 Delivery Room Air Room Air Room Air 05/18/20 05/18/20 05/18/20 05:02 07:33 07:34 Temp 98.1 Pulse 60 Resp 18 B/P (MAP) 125/58 (80) Pulse Ox 95 O2 Delivery Room Air Room Air Room Air Intake and Output 05/18/20 07:00 Intake Total 480 ml Output Total 450 ml Balance 30 ml General: Alert, Oriented X3 HEENT: Atraumatic, PERRLA, EOMI Neck: Supple, No JVD, No thyromegaly Lungs: Normal air movement, Other (Mildly diminished) Heart: Regular rate, Other (3/6 holosystolic murmur) Abdomen: Normal bowel sounds Extremities: No clubbing Skin: No rashes, No breakdown Neuro: Normal speech, Strength at 5/5 X4 ext Psych/Mental Status: Mental status NL, Mood NL All Results(Lab/Rad) Laboratory Tests Test 05/15/20 20:16 05/16/20 00:56 05/16/20 05:18 White Blood Count 9.3 10^3/uL 8.5 10^3/uL Red Blood Count 3.08 10^6/uL 2.98 10^6/uL Hemoglobin 8.3 g/dL 8.1 g/dL Hematocrit 26.3 % 25.3 % Mean Corpuscular Volume 85.4 fL 84.9 fL Mean Corpuscular Hemoglobin 26.9 pg 27.2 pg Mean Corpuscular Hemoglobin Concent 31.6 g/dL 32.0 g/dL Red Cell Distribution Width 15.2 % 15.0 % Platelet Count 234 10^3/uL 227 10^3/uL Mean Platelet Volume 9.6 fL 10.2 fL Neutrophils (%) (Auto) 38.5 % 34.6 % Lymphocytes (%) (Auto) 51.1 % 52.8 % Monocytes (%) (Auto) 8.4 % 8.6 % Neutrophils # (Auto) 3.6 10^3/uL 2.9 10^3/uL Lymphocytes # (Auto) 4.77 10^3/uL1 4.48 10^3/uL1 Monocytes # (Auto) 0.8 10^3/uL 0.7 10^3/uL Absolute Immature Granulocyte (auto 0.01 10^3 u/L 0.02 10^3 u/L Absolute Eosinophils (auto) 0.1 10^3/uL 0.2 10^3/uL Immature Granulocytes % 0.10 % 0.20 % Eosinophils % 1.0 % 2.7 % Basophils % 0.9 % 1.1 % Basophils # 0.1 10^3/uL 0.1 10^3/uL Prothrombin Time 13.6 SEC Prothrombin Time INR (Non-Therap) 1.3 Activated Partial Thromboplast Time 28.1 SEC D-Dimer 1.58 mg/L Sodium Level 131 mmol/L 138 mmol/L Potassium Level 4.0 mmol/L 4.3 mmol/L Chloride Level 100.0 mmol/L 104.0 mmol/L Carbon Dioxide Level 24.1 mmol/L 23.4 mmol/L Anion Gap 10.9 14.9 Blood Urea Nitrogen 27 mg/dL 29 mg/dL Creatinine 1.73 mg/dL 1.64 mg/dL Estimated GFR () 45.8 48.7 Est GFR (CKD-EPI)(Non-Afr [place]) 37.8 40.2 BUN/Creatinine Ratio 15.0 17.0 Glucose Level 110 mg/dL 112 mg/dL Calcium Level 8.1 mg/dL 8.4 mg/dL Total Bilirubin 0.6 mg/dL 0.5 mg/dL Aspartate Amino Transf (AST/SGOT) 22 U/L 19 U/L Alanine Aminotransferase (ALT/SGPT) 20 U/L 17 U/L Alkaline Phosphatase 90 U/L 92 U/L Total Creatine Kinase 100 U/L Creatine Kinase MB 1.5 ng/mL Troponin I 0.03 ng/mL 0.03 ng/mL < 0.02 ng/mL Pro-B-Type Natriuretic Peptide 29308 pg/mL Total Protein 7.2 g/dL 6.9 g/dL Albumin 3.3 g/dL 3.0 g/dL Globulin 3.9 3.9 Albumin/Globulin Ratio 0.846 0.769 Helicobacter pylori Screen NEGATIVE Current Medications Medications (Trade) Dose Ordered Sig/Sal Route PRN Reason Start Time Stop Time Status Last Admin Dose Admin Aspirin (Aspirin Ec) 81 mg DAILY24 PO 05/15/20 23:30 06/14/20 23:29 05/15/20 23:58 Docusate Sodium (Colace) 100 mg BID PO 05/15/20 23:30 06/14/20 23:29 05/15/20 23:59 Furosemide (Lasix) 20 mg DAILY PRN PO WEIGHT GAIN 05/15/20 23:30 06/14/20 23:29 Gabapentin (Neurontin) 200 mg TID PO 05/16/20 09:00 06/15/20 08:59 Hydralazine HCl (Apresoline) 50 mg BID PO 05/15/20 23:30 06/14/20 23:29 05/16/20 00:01 Levothyroxine Sodium (Synthroid) 75 mcg ACB PO 05/16/20 09:00 06/15/20 08:59 Losartan Potassium (Cozaar) 100 mg DAILY PO 05/16/20 09:00 06/15/20 08:59 Metoprolol Tartrate (Lopresser) 12.5 mg BID PO 05/16/20 09:00 06/15/20 08:59 Pantoprazole Sodium (Protonix) 40 mg BID PO 05/16/20 09:00 06/15/20 08:59 Tamsulosin HCl (Flomax) 0.8 mg DAILY PO 05/16/20 09:00 06/15/20 08:59 Torsemide (Demadex) 20 mg Q48H PO 05/15/20 23:30 06/14/20 23:29 Acetaminophen/ Hydrocodone Bitart ([place] 10mg) 1 each BID PRN PO PAIN MOD 05/15/20 23:30 06/14/20 23:29 Potassium Chloride (Klor-Con 10) 10 meq Q48H PO 05/15/20 23:30 06/14/20 23:29 Furosemide (Lasix) 40 mg STAT STAT IV 05/15/20 23:36 05/16/20 00:06 DC 05/16/20 00:00 Potassium Chloride (Potassium Chloride) 40 meq STAT STAT PO 05/15/20 23:36 05/16/20 00:06 DC 05/15/20 23:59 Docusate Sodium (Colace) 100 mg STK-MED ONCE .ROUTE 05/15/20 23:47 05/15/20 23:49 DC Acetaminophen/ Hydrocodone Bitart ([place] 10mg) 1 each STK-MED ONCE PO 05/15/20 23:49 05/15/20 23:51 DC Aspirin (Aspirin) 81 mg STK-MED ONCE .ROUTE 05/15/20 23:50 05/15/20 23:52 DC Acetaminophen/ Hydrocodone Bitart ([place] 10mg) 1 each OT ONCE PO 05/16/20 00:03 05/16/20 00:04 DC 05/16/20 00:03 Medication Reconciliation Scheduled Apixaban (Eliquis), 5 MG PO BID, (Reported) Aspirin (Aspir 81), 1 TAB PO DAILY24, (Reported) Docusate Sodium (Easy-Lax), 100 MG PO BID Furosemide (Lasix), 40 MG PO DAILY24 Gabapentin (Gabapentin), 2 CAP PO TID, (Reported) Hydralazine Hcl (Hydralazine Hcl), 2 TAB PO BID, (Reported) Levothyroxine Sodium (Levothyroxine Sodium), 1 TAB PO DAILY, (Reported) Losartan Potassium (Losartan Potassium), 2 TAB PO DAILY, (Reported) Metoprolol Tartrate 25MG ([place] 25MG), 12.5 MG PO BID Omeprazole (Omeprazole), 1 CAP PO BID, (Reported) Potassium Chloride (Potassium Chloride), 20 MEQ PO DAILY24 Tamsulosin Hcl (Flomax), 2 CAP PO DAILY, (Reported) Tiotropium Br/Olodaterol HCl (Stiolto Respimat Inhal [place]), 2 PUFF IH DAILY24, (Reported) Torsemide (Torsemide), 1 TAB PO Q48H, (Reported) Scheduled PRN Hydrocodone Bit/Acetaminophen (Hydrocodon-Acetaminophn 10-300), 1 TAB PO BID PRN for PAIN MODERATE, (Reported) Discontinued Medications Furosemide (Furosemide), 1 TAB PO DAILY PRN for WEIGHT GAIN, (Reported) Discontinued Reason: Discontinue Potassium Chloride (Potassium Chloride), 10 MEQ PO Q48H, (Reported) Discontinued Reason: Discontinue Torsemide (Torsemide), 1 TAB PO Q48H, (Reported) Discontinued Reason: Discontinue Plan Assessment 1. Acute decompensated heart failure secondary to diastolic dysfunction. 2. Severe mitral regurgitation. 3. Severe aortic regurgitation. 4. History of bioprosthetic aortic valve replacement done in 2007. 5. Paroxysmal atrial flutter, on Eliquis. 6. Nonobstructive coronary artery disease by left heart catheterization done, 09/2019. 7. Chronic obstructive pulmonary disease. 8. Hypertension. 9. Obstructive sleep apnea. 10. Type 2 diabetes mellitus. 11. Carotid artery disease. 12. Severe TR 13. LVEF 60% Plan Continue diuretics/ARB/BB Severe Valvulopathy involving the aortic/mitral/tricuspid valves--Patient not interested in surgical invasive therapies Will continue with medical mgt at this time Fluid restriction/Strict I and O's/Daily weights/Na restriction Normal LVEF on echo Continue OAC for PAFlutter Monitor on tele Daily labs Patient near euvolemia Plan My Orders - TYRESE ANTHONY MD Procedure Category Date Status Time Cbc With Auto Diff LAB 05/18/20 Complete 05:00 Comprehensive LAB 05/18/20 Complete Metabolic Panel 05:00 Discharge DISCHARGE 05/18/20 Transmitted 08:32 TYRESE ANTHONY MD May 18, 2020 08:37
[2020-05-18] MEDS: APRESOLINE PO SCH (08:48)
[2020-05-18] MEDS: FLOMAX PO SCH (08:48)
[2020-05-18] MEDS: ELIQUIS PO SCH (08:48)
[2020-05-18] MEDS: NEURONTIN PO SCH (08:48)
[2020-05-18] MEDS: PROTONIX PO SCH (08:49)
[2020-05-18] MEDS: COZAAR PO SCH (08:49)
[2020-05-18] MEDS: COLACE PO SCH (08:49)
[2020-05-18] MEDS: LOPRESSER PO SCH (08:50)
[2020-05-18] MEDS: LASIX IV SCH (08:50)
== END 2020-05-18 14:00 | disposition home health service (06) | DRG 291 ==
LOC: ER 20:07 → MS 21:59 → OBSVTOIN 21:59
PROVIDERS: ADMIT Family Medicine; ATTEND Family Medicine
DX: I13.0 Hypertensive heart and chronic kidney disease with heart failure and stage 1 through stage 4 chronic kidney disease, or unspecified chronic kidney disease (principal); I50.33 Acute on chronic diastolic (congestive) heart failure; I48.92 Unspecified atrial flutter; J44.1 Chronic obstructive pulmonary disease with (acute) exacerbation; E11.22 Type 2 diabetes mellitus with diabetic chronic kidney disease; I25.10 Atherosclerotic heart disease of native coronary artery without angina pectoris; G47.33 Obstructive sleep apnea (adult) (pediatric); I08.3 Combined rheumatic disorders of mitral, aortic and tricuspid valves; N18.9 Chronic kidney disease, unspecified; E03.9 Hypothyroidism, unspecified; D50.0 Iron deficiency anemia secondary to blood loss (chronic); Z82.49 Family history of ischemic heart disease and other diseases of the circulatory system; Z95.3 Presence of xenogenic heart valve
CPT/HCPCS: 36415; 71045; 80053; 82550; 82553; 83880; 84484; 85025; 85379; 85610; 85730; 86677; 93005; 93306; 99285; G0378; J1940

== ENCOUNTER 2020-07-26 18:06 | Emergency (ER) | payer MEDICARE ==
[~2020-07-26] VITALS: Ht 180.3 cm; Wt 97.1 kg
[~2020-07-26 18:06] MED LIST changes: -CLIN300C8 PO; +CLIN300C9 PO; -MONT10TA11 PO; +MONT10TA95 PO; +POTA20TA14 PO
[2020-07-26 18:33] VITALS: BP 143/76
--- NOTE | 2020-07-26 18:42 | ER.PDOC ---
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; no LOC; denies pain anywhere except left ribs; denies difficulty br eathing Where: home Severity: moderate Injuries/Pain Location: chest (left ribs) Context: Tripped Loss of Consciousness: No Loss of Consciousness Associated Symptoms: denies symptoms Allergies: Coded Allergies: atorvastatin (Verified Allergy, Severe, MUSCLE WEAKNESS, 03/10/20) hydrochlorothiazide (Verified Allergy, Severe, HYPONATREMIA, 03/10/20) amlodipine (Verified Allergy, Intermediate, Swelling, 03/10/20) "MAKES ME RETAIN WATER REAL BAD" pregabalin (Verified Allergy, Intermediate, 03/10/20) BLURRED VISION butorphanol (Verified Allergy, Unknown, HALLUCINATIONS, 03/10/20) ibuprofen (Verified Allergy, Unknown, 03/10/20) INSTRUCTED BY DR NOT TO TAKE lisinopril (Verified Allergy, Unknown, 03/10/20) MEDS Active Scripts Potassium Chloride (POTASSIUM CHLORIDE) 20 Meq Tab.er.prt, 20 MEQ PO DAILY24 for 30 Days, #30 TAB Prov:TYRESE ANTHONY MD 05/18/20 Furosemide (LASIX) 40 Mg Tablet, 40 MG PO DAILY24 for 30 Days, #30 TAB Prov:TYRESE ANTHONY MD 05/18/20 Metoprolol Tartrate 25MG (LOPRESSER 25MG) 25 Mg Tablet, 12.5 MG PO BID for 30 Days, TAB Prov:ROZINA JOHNSON MD 09/22/19 Docusate Sodium (EASY-LAX) 100 Mg Capsule, 100 MG PO BID for 1 Day, #1 CAPSULE 0 Refills Prov:DEVENDRA ARNOLD MD 04/17/19 Reported Medications Gabapentin (GABAPENTIN) 100 Mg Capsule, 2 CAP PO TID, #90 CAP 2 Refills 03/10/20 Hydralazine Hcl (HYDRALAZINE HCL) 25 Mg Tablet, 2 TAB PO BID, #60 TAB 5 Refills 01/01/20 Hydrocodone Bit/Acetaminophen (HYDROCODON-ACETAMINOPHN 10-300) 1 Each Tablet, 1 TAB PO BID PRN for PAIN MODERATE MDD 4 Tablet(s) for 30 Days, #120 TAB 0 Refills 01/01/20 Aspirin (ASPIR 81) 81 Mg Tablet.dr, 1 TAB PO DAILY24 for 30 Days, #30 TAB 0 Refills 09/15/19 Losartan Potassium (LOSARTAN POTASSIUM) 50 Mg Tablet, 2 TAB PO DAILY, #30 TAB 5 Refills 09/15/19 Tiotropium Br/Olodaterol HCl (Stiolto Respimat Inhal [place]) 4 Gm Mist.inhal, 2 PUFF IH DAILY24 04/11/19 Tamsulosin Hcl (FLOMAX) 0.4 Mg Cap.er.24h, 2 CAP PO DAILY, #30 CAP 11 Refills 04/11/19 Torsemide (TORSEMIDE) 20 Mg Tablet, 1 TAB PO Q48H, #90 TAB 1 Refill 04/11/19 Apixaban (Eliquis) 5 Mg Tablet, 5 MG PO BID, TABLET 04/11/19 Levothyroxine Sodium (LEVOTHYROXINE SODIUM) 75 Mcg Tablet, 1 TAB PO DAILY, #30 TAB 5 Refills 04/11/19 Omeprazole (OMEPRAZOLE) 20 Mg Capsule.dr, 1 CAP PO BID, #30 CAP 5 Refills 04/11/19 Past Medical History Medical History: angina, arrhythmia, coronary artery disease, cardiac problems, congestive heart failure, COPD, diabetes, high cholesterol, heart valve disease, hypertension, renal disease Surgical History: cardiac cath, other Family History Significant Family History: no pertinent family hx Social History Smoking: non-smoker Alcohol Use: none Drug Use: none Review of Systems Constitutional: denies no symptoms reported, denies see HPI, denies chills, denies diaphoresis, denies fever, denies malaise, denies weakness, denies other Eyes: denies no symptoms reported, denies see HPI, denies blindness, denies blurred vision, denies drainage, denies decreased acuity, denies foreign body sensation, denies inflammation, denies pain, denies photophobia, denies previous injury, denies shadows, denies tunnel vision, denies vision change, denies contact lenses, denies glasses, denies other Ears, Nose, Mouth, Throat: denies no symptoms reported, denies see HPI, denies ear pain, denies ear discharge, denies nose pain, denies nose discharge, denies epistaxis, denies mouth pain, denies mouth swelling, denies loose teeth, denies throat pain, denies throat swelling Respiratory: denies no symptoms reported, denies see HPI, denies cough, denies orthopnea, denies shortness of breath, denies stridor, denies wheezing, denies other Cardiovascular: denies no symptoms reported, denies see HPI, denies chest pain, denies edema, denies palpitations, denies syncope, denies other Gastrointestinal: denies no symptoms reported, denies see HPI, denies abdominal pain, denies constipation, denies diarrhea, denies nausea, denies vomiting, genesis es other Musculoskeletal: see HPI Skin: denies no symptoms reported, denies see HPI, denies change in color, denies change in hair/nails, denies dryness, denies lesions, denies lumps, denies rash, denies other Psychiatric/Neurological: denies no symptoms reported, denies see HPI, denies anxiety, denies depressed, denies emotional problems, denies headache, denies numbness, denies paresthesia, denies pre-existing deficit, denies seizure, denies tingling, denies tremors, denies weakness, denies other All Other Systems: Reviewed and Negative Physical Exam General Appearance: No Apparent Distress, WD/WN Head: No Evidence of Injury Eyes: bilateral eye normal inspection, bilateral eye PERRL, bilateral eye EOMI Ears, Nose, Mouth, Throat: Hearing Grossly Normal Neck: Non-Tender, Normal Alignment Cardiovascular/Respiratory: Regular Rate, Rhythm, Normal Breath Sounds, No Respiratory Distress, Rib Tenderness (left lateral) Gastrointestinal: Normal Bowel Sounds, Non Tender, Soft Extremities: No Evidence of Injury, Non-Tender Neurologic/Psychiatric: Alert, Normal Mood/Affect, Oriented x 3 Skin: Ecchymosis (left side, just above belt line, nontender) [place] Coma Score Best Eye Response: (4) Open Spontaneously Best Verbal Response: (5) Oriented Best Motor Response: (6) Obeys Commands Results/Orders Results/Orders Orders - PACO RODNEY DO Xr Ribs Lt W/Cxr (07/26/20 18:32) Fentanyl Citrate/Pf (Sublimaze) (07/26/20 18:43) Vital Signs Date Time Temp Pulse Resp B/P (MAP) Pulse Ox O2 Delivery O2 Flow Rate FiO2 07/26/20 18:33 98.3 79 18 07/26/20 18:33 98.3 79 18 99 07/26/20 18:33 98.3 79 18 143/76 (98) 99 Administered Medications Medications (Trade) Dose Ordered Sig/Sal Route PRN Reason Start Time Stop Time Status Last Admin Dose Admin Fentanyl Citrate (Sublimaze) 50 mcg STAT STAT IM 07/26/20 18:43 07/26/20 18:44 UNV 07/26/20 18:50 50 MCG EKG/XRAY/CT/US XRAY: chest (no acute abnormality) ER DEPART Departure Time of Disposition: 19:30 Disposition: 01 HOME, SELF-CARE Impression: Primary Impression: Fall Additional Impression: Contusion of rib on left side Condition: Improved Patient Instructions: Fall Prevention and Home Safety, Rib Contusion Referrals: JAMARI SHIELDS MD (PCP) PRIMARY CARE PROVIDER Additional Instructions: Tylenol per package instructions every 6-8 hours as needed for pain. You may augment pain control with mild narcotic as prescribed. Return to ER if you experience any difficulty breathing or swallowing, or for any emergent concerns. Follow up with your doctor next week for reevaluation. Duration or Time Spent with Pa: 20 min Problem Qualifiers Primary Impression: Fall Encounter type: initial encounter Qualified Codes: W19.XXXA - Unspecified fall, initial encounter Additional Impression: Contusion of rib on left side Encounter type: initial encounter Qualified Codes: S20.212A - Contusion of left front wall of thorax, initial encounter PACO RODNEY DO Jul 26, 2020 18:42
[2020-07-26] MEDS ORDERED: SUBLIMAZE IM STA (18:43)
[2020-07-26] MEDS ORDERED: SUBLIMAZE ONE (18:49)
--- NOTE | 2020-07-26 19:19 | NUR ---
BACK FROM CT RECONNECTED TO BEDSIDE MONITOR, URINAL PROVIDED PER PATIENT REQUEST.
--- NOTE | 2020-07-26 19:21 | DIREP ---
PROCEDURE:XRAY RIBS W/PA CHEST 3VWS-LT COMPARISON:[facility], CR, XRAY CHEST SINGLE VW, 05/15/2020, 08:25 PM. [facility], CR, XRAY CHEST SINGLE VW, 03/14/2020, 06:43 AM. [facility], CR, XRAY CHEST SINGLE VW, 01/27/2020, 03:07 PM. INDICATIONS:fall injury TECHNIQUE:PA chest and 4 view of the left ribs FINDINGS: RIBS:No fracture. LUNGS/PLEURA: No significant pulmonary parenchymal abnormalities. CARDIAC: Normal size cardiac silhouette and normal vascularity. MEDIASTINUM: Calcified aorta. BONES: Degenerative changes. OTHER: Sternotomy wires in left upper quadrant surgical clips. CONCLUSION:No acute abnormality noted. Dictated by: jV Walker M.D. on 07/26/2020 at 07:17 PM
== END 2020-07-26 19:40 | disposition home or self-care (01) ==
LOC: ER 18:06
DX: S20.212A Contusion of left front wall of thorax, initial encounter (principal); Z88.5 Allergy status to narcotic agent; Z88.8 Allergy status to other drugs, medicaments and biological substances; Z88.6 Allergy status to analgesic agent; W01.0XXA Fall on same level from slipping, tripping and stumbling without subsequent striking against object, initial encounter; Y93.89 Activity, other specified; Y92.89 Other specified places as the place of occurrence of the external cause; Y99.8 Other external cause status
CPT/HCPCS: 71101; 96372; 99284; J3010

== ENCOUNTER 2020-08-01 12:24 | Emergency (ER) | payer MEDICARE ==
[~2020-08-01] VITALS: Ht 180.3 cm; Wt 113.4 kg
--- NOTE | 2020-08-01 12:25 | NUR ---
PT TO ROOM 8VIA W/C PT STS HE CALLED HIS PRIMARY CARE BECAUSE OF HAND AND LEG TREMORS. PT HAS LARGE PURPLE DICOLORATION TO HI LOWER LEFT ABDOMEN FROMA FALL ON [id number]
[2020-08-01 12:37] VITALS: BP 159/82
--- NOTE | 2020-08-01 13:05 | NUR ---
PT RETURNED FROM CT
--- NOTE | 2020-08-01 13:13 | DIREP ---
PROCEDURE:XRAY RIBS W/PA CHEST 3VWS-LT COMPARISON:[facility], , XRAY RIBS W/PA CHEST 3VWS-LT, 07/26/2020, 06:59 PM. INDICATIONS:FALL TECHNIQUE:PA chest and 6 views of the left ribs. FINDINGS: Left RIBS:No fracture. No left-sided rib fracture, pneumothorax or subpleural hematoma is seen. LUNGS/PLEURA: No significant pulmonary parenchymal abnormalities. CARDIAC: The cardiac silhouette appears to be mildly enlarged. Status post CABG. MEDIASTINUM: Calcified lymph nodes in the right infrahilar region. Aorta is tortuous. BONES: Normal. OTHER: No additional findings. CONCLUSION:No left-sided rib fractures, pneumothorax or subpleural hematoma is seen. Dictated by: Alvin Colby MD on 08/01/2020 at 01:09 PM
[2020-08-01 13:44] LABS: ALANINE AMINOTRANSFERASE(ML) 17 U/L (12-78); ALKALINE PHOSPHATASE 116 U/L (50-136); ASPARTATE AMINO TRANSFERASE 23 U/L (0-35); CALCIUM 8.7 mg/dL (8.4-10.5); CARBON DIOXIDE 27.6 mmol/L (20.0-32); GLUCOSE 120 mg/dL (70-110)
[2020-08-01 14:36] VITALS: BP 147/55
--- NOTE | 2020-08-01 15:13 | NUR ---
CRITICAL VALUE REPORTED TO D-DIMER 0.68
--- NOTE | 2020-08-01 15:48 | ER.PDOC ---
General Chief Complaint: General Complaint Stated Complaint: POSIBLE STROKE TRAVEL OUT OF US: No Time seen by MD: 15:55 Source: patient Exam Limitations: no limitations History of Present Illness Initial Comments worsening tremors Timing/Duration: 1 week Severity: mild Modifying Factors: improves with movement, improves with rest Allergies: Coded Allergies: atorvastatin (Verified Allergy, Severe, MUSCLE WEAKNESS, 03/10/20) hydrochlorothiazide (Verified Allergy, Severe, HYPONATREMIA, 03/10/20) amlodipine (Verified Allergy, Intermediate, Swelling, 03/10/20) "MAKES ME RETAIN WATER REAL BAD" pregabalin (Verified Allergy, Intermediate, 03/10/20) BLURRED VISION butorphanol (Verified Allergy, Unknown, HALLUCINATIONS, 03/10/20) ibuprofen (Verified Allergy, Unknown, 03/10/20) INSTRUCTED BY NOT TO TAKE lisinopril (Verified Allergy, Unknown, 03/10/20) Home Meds Active Scripts Potassium Chloride (POTASSIUM CHLORIDE) 20 Meq Tab.er.prt, 20 MEQ PO DAILY24 for 30 Days, #30 TAB Prov:TYRESE ANTHONY MD 05/18/20 Furosemide (LASIX) 40 Mg Tablet, 40 MG PO DAILY24 for 30 Days, #30 TAB Prov:TYRESE ANHTONY MD 05/18/20 Metoprolol Tartrate 25MG (LOPRESSER 25MG) 25 Mg Tablet, 12.5 MG PO BID for 30 Days, TAB Prov:ROZINA JOHNSON MD 09/22/19 Docusate Sodium (EASY-LAX) 100 Mg Capsule, 100 MG PO BID for 1 Day, #1 CAPSULE 0 Refills Prov:DEVENDRA ARNOLD MD 04/17/19 Reported Medications Gabapentin (GABAPENTIN) 100 Mg Capsule, 2 CAP PO TID, #90 CAP 2 Refills 03/10/20 Hydralazine Hcl (HYDRALAZINE HCL) 25 Mg Tablet, 2 TAB PO BID, #60 TAB 5 Refills 01/01/20 Hydrocodone Bit/Acetaminophen (HYDROCODON-ACETAMINOPHN 10-300) 1 Each Tablet, 1 TAB PO BID PRN for PAIN MODERATE MDD 4 Tablet(s) for 30 Days, #120 TAB 0 Refills 01/01/20 Aspirin (ASPIR 81) 81 Mg Tablet., 1 TAB PO DAILY24 for 30 Days, #30 TAB 0 Refills 2/11/20 Losartan Potassium (LOSARTAN POTASSIUM) 50 Mg Tablet, 2 TAB PO DAILY, #30 TAB 5 Refills 09/15/19 Tiotropium Br/Olodaterol HCl (Stiolto Respimat Inhal [place]) 4 Gm Mist.inhal, 2 PUFF IH DAILY24 04/11/19 Tamsulosin Hcl (FLOMAX) 0.4 Mg Cap.er.24h, 2 CAP PO DAILY, #30 CAP 11 Refills 04/11/19 Torsemide (TORSEMIDE) 20 Mg Tablet, 1 TAB PO Q48H, #90 TAB 1 Refill 04/11/19 Apixaban (Eliquis) 5 Mg Tablet, 5 MG PO BID, TABLET 04/11/19 Levothyroxine Sodium (LEVOTHYROXINE SODIUM) 75 Mcg Tablet, 1 TAB PO DAILY, #30 TAB 5 Refills 04/11/19 Omeprazole (OMEPRAZOLE) 20 Mg Capsule.dr, 1 CAP PO BID, #30 CAP 5 Refills 04/11/19 Past Medical History Medical History: asthma, cardiac problems, COPD, heart valve disease Surgical History: cardiac cath, appendectomy, cholecystectomy, Colonoscopy Social History Alcohol Use: none Drug Use: none Reviewed Nursing Reviewed: Vital Signs, Abn. Noted Review of Systems All Other Systems: Reviewed and Negative Physical Exam General Appearance: No Apparent Distress EENT: eyes nml inspection Neck: Non-Tender Respiratory: chest non-tender, prolonged expirations CVS: reg rate & rhythm Gastrointestinal: Normal Bowel Sounds, Other (hematoma l flank) Back: No Vertebral Tenderness, Other Extremities: Normal Range of Motion Neurologic/Psychiatric: apiarist II-XII NML as Tested Skin: Normal Color Lymphatic: No Adenopathy Results/Orders Results/Orders Orders - MANASA JULIO MD Comprehensive Metabolic Panel (08/01/20 13:33) Creatine Kinase (08/01/20 13:33) Creatine Kinase Mb (08/01/20 13:33) Troponin I (08/01/20 13:33) Probnp B-Type Storage Architect (08/01/20 13:33) PT (08/01/20 13:33) Partial Thromboplastin Time. (08/01/20 13:33) Helicobacter Pylori (08/01/20 13:33) D-Dimer (08/01/20 13:33) Vital Signs Date Time Temp Pulse Resp B/P (MAP) Pulse Ox O2 Delivery O2 Flow Rate FiO2 08/01/20 14:36 60 20 147/55 (85) 95 Room Air 08/01/20 12:37 98.2 62 20 92 08/01/20 12:37 98.2 62 20 92 Laboratory Tests Test 08/01/20 12:42 08/01/20 12:45 Prothrombin Time 12.1 SEC (9.3-11.3) H Prothrombin Time INR (Non-Therap) 1.2 Activated Partial Thromboplast Time 27.9 SEC (24.67-30.72) D-Dimer 0.68 mg/L (0.19-0.49) *H Sodium Level 134 mmol/L (132-145) Potassium Level 4.5 mmol/L (3.6-5.2) Chloride Level 100.0 mmol/L (96-109) Carbon Dioxide Level 27.6 mmol/L (20.0-32) Anion Gap 10.9 Blood Urea Nitrogen 36 mg/dL (7-18) H Creatinine 1.63 mg/dL (0.59-1.40) H Estimated GFR () 49.0 (>/=60) Est GFR (CKD-EPI)(Non-Afr Hungarian) 40.5 (>/=60) BUN/Creatinine Ratio 22.0 Glucose Level 120 mg/dL (70-110) H Calcium Level 8.7 mg/dL (8.4-10.5) Total Bilirubin 0.6 mg/dL (0.2-1.0) Aspartate Amino Transferase (AST) 23 U/L (0-35) Alanine Aminotransferase (ALT) 17 U/L (12-78) Alkaline Phosphatase 116 U/L (50-136) Total Creatine Kinase 79 U/L (39-308) Creatine Kinase MB < 0.5 ng/mL (0.5-3.6) L Troponin I 0.01 ng/mL (0.00-0.05) Pro-B-Type Natriuretic Peptide 6063 pg/mL (0-450) H Total Protein 7.8 g/dL (6.4-8.2) Albumin 3.4 g/dL (3.4-5.0) Globulin 4.4 Albumin/Globulin Ratio 0.772 Helicobacter pylori Screen NEGATIVE (NEGATIVE) EKG/XRAY/CT/US EKG Comments: a flutter ER DEPART Departure Time of Disposition: 17:00 Disposition: 01 HOME, SELF-CARE Impression: Primary Impression: Essential tremor Condition: Improved Referrals: JAMARI SHIELDS MD (PCP) PRIMARY CARE PROVIDER Duration or Time Spent with Pa: Sylwiam MANASA JULIO MD Aug 01, 2020 15:48
== END 2020-08-01 16:00 | disposition home or self-care (01) ==
LOC: ER 12:24
DX: G25.0 Essential tremor (principal); J44.9 Chronic obstructive pulmonary disease, unspecified; Z79.01 Long term (current) use of anticoagulants; Z79.82 Long term (current) use of aspirin; Z79.899 Other long term (current) drug therapy; Z88.6 Allergy status to analgesic agent; Z88.8 Allergy status to other drugs, medicaments and biological substances; Z90.49 Acquired absence of other specified parts of digestive tract
CPT/HCPCS: 36415; 80053; 82550; 82553; 83880; 84484; 85379; 85610; 85730; 86677; 93005; 99284; 71101-LT

== ENCOUNTER → 2020-08-09 | Outpatient (CLI) | payer MEDICARE ==
[~2020-08-09] MED LIST changes: +ROPINIROLE HCL PO; +SPIR25TA PO
[2020-08-09 16:22] LABS: BASOPHIL # 0.1 10^3/uL (0.0-0.1); EOSINOPHIL # 0.1 10^3/uL (0.0-0.2); LYMPHOCYTES # 4.66 10^3/uL1 (1.0-4.8); LYMPHOCYTES % 45.5 % (24.0-44.0); MEAN CORP HGB 24.7 pg (26-34); MONOCYTES # 0.8 10^3/uL (0.3-0.8); MONOCYTES % 7.8 % (5.0-12.0); NEUTROPHIL # 4.6 10^3/uL (1.8-7.7); NEUTROPHILS % 44.5 % (41.0-85.0); PLATELET COUNT 182 10^3/uL (150-400); RED CELL DISTRIBUTION WIDTH 18.8 % (11.5-14.5)
--- NOTE | 2020-08-09 16:48 | DIREP ---
PROCEDURE:CHEST 2 VIEWS COMPARISON:[facility], CR, XRAY RIBS W/PA CHEST 3VWS-LT, 08/01/2020, 12:51 PM. INDICATIONS:DEHYDRATION, COPD FINDINGS: LUNGS/PLEURA:No significant pulmonary parenchymal abnormalities. No effusions. VASCULATURE:Normal. Unremarkable pulmonary vasculature. CARDIAC:Normal. No cardiac silhouette abnormality or cardiomegaly. MEDIASTINUM:Granulomas in the hilar regions. BONES:Sternotomy wire OTHER:Negative. CONCLUSION:No acute cardiopulmonary findings. Dictated by: Tony Richardson M.D. on 08/09/2020 at 04:46 PM
[2020-08-09 16:53] LABS: CALCIUM 8.5 mg/dL (8.4-10.5); CARBON DIOXIDE 24.7 mmol/L (20.0-32)
[2020-08-09 16:57] LABS: APPEARANCE,URINE CLEAR (CLEAR); BILIRUBIN,URINE NEGATIVE (NEGATIVE); UA COLOR YELLOW (YELLOW); UROBILINOGEN,URINE NORMAL (NEGATIVE)
== END | disposition home or self-care (01) ==
LOC: RAD 15:59
PROVIDERS: ATTEND Internal Medicine
DX: J44.1 Chronic obstructive pulmonary disease with (acute) exacerbation (principal); E86.0 Dehydration; E11.22 Type 2 diabetes mellitus with diabetic chronic kidney disease; N18.9 Chronic kidney disease, unspecified; Z79.899 Other long term (current) drug therapy
CPT/HCPCS: 36415; 71046; 80053; 81000; 82607; 82746; 83735; 84439; 84443; 85025; 87077; 87086; 87186

== ENCOUNTER 2020-08-14 22:33 | Inpatient (IN) | payer MEDICARE ==
[~2020-08-14] VITALS: Ht 172.7 cm; Wt 100.0 kg
[~2020-08-14 22:33] MED LIST changes: -ROPINIROLE HCL PO; -SPIR25TA PO
--- NOTE | 2020-08-14 22:44 | ER.PDOC ---
General Chief Complaint: Requesting Medical Care Stated Complaint: FLUID RETENTION TRAVEL OUT OF US: No Time seen by MD: 22:33 Source: patient, EMS Exam Limitations: no limitations History of Present Illness Initial Comments Pt c/o fluid retention in his distal legs. Pt is in here a lot with issues of CHF. Pt reports that his "doctors" has been changing his Lasix dose and for a while he was not on any. Now he is back on it but at half the dose he use to be on. He c/o some SOB with walking around. He really denies any other issue. Pt has me take off his socks and indicated that his left ankle had swollen up over the last 2 hours. However, when I look at it, I do not see any edema at all. He has trace pretibial edema in his left distal leg and no edema in the right leg. Pt indicated he is to be here tomorrow for labs and a swallow study. Pt voided here shortly after arrivel. Urine appearance is totally normal. He denies any UTI sx. Pt has A-Fib and is in it now. Allergies: Coded Allergies: atorvastatin (Verified Allergy, Severe, MUSCLE WEAKNESS, 03/10/20) hydrochlorothiazide (Verified Allergy, Severe, HYPONATREMIA, 03/10/20) amlodipine (Verified Allergy, Intermediate, Swelling, 03/10/20) "MAKES ME RETAIN WATER REAL BAD" pregabalin (Verified Allergy, Intermediate, 03/10/20) BLURRED VISION butorphanol (Verified Allergy, Unknown, HALLUCINATIONS, 03/10/20) ibuprofen (Verified Allergy, Unknown, 03/10/20) INSTRUCTED BY DR NOT TO TAKE lisinopril (Verified Allergy, Unknown, 03/10/20) Home Meds Active Scripts Potassium Chloride (POTASSIUM CHLORIDE) 20 Meq Tab.er.prt, 20 MEQ PO DAILY24 for 30 Days, #30 TAB Prov:TYRESE ANTHONY MD 05/18/20 Furosemide (LASIX) 40 Mg Tablet, 40 MG PO DAILY24 for 30 Days, #30 TAB Prov:TYRESE ANTHONY MD 05/18/20 Metoprolol Tartrate 25MG (LOPRESSER 25MG) 25 Mg Tablet, 12.5 MG PO BID for 30 Days, TAB Prov:ROZINA JOHNSON MD 09/22/19 Docusate Sodium (EASY-LAX) 100 Mg Capsule, 100 MG PO BID for 1 Day, #1 CAPSULE 0 Refills Prov:DEVENDRA ARNOLD MD 04/17/19 Reported Medications Gabapentin (GABAPENTIN) 100 Mg Capsule, 2 CAP PO TID, #90 CAP 2 Refills 03/10/20 Hydralazine Hcl (HYDRALAZINE HCL) 25 Mg Tablet, 2 TAB PO BID, #60 TAB 5 Refills 01/01/20 Hydrocodone Bit/Acetaminophen (HYDROCODON-ACETAMINOPHN 10-300) 1 Each Tablet, 1 TAB PO BID PRN for PAIN MODERATE MDD 4 Tablet(s) for 30 Days, #120 TAB 0 Refills 01/01/20 Aspirin (ASPIR 81) 81 Mg Tablet.dr, 1 TAB PO DAILY24 for 30 Days, #30 TAB 0 Refills 09/15/19 Losartan Potassium (LOSARTAN POTASSIUM) 50 Mg Tablet, 2 TAB PO DAILY, #30 TAB 5 Refills 09/15/19 Tiotropium Br/Olodaterol HCl (Stiolto Respimat Inhal [place]) 4 Gm Mist.inhal, 2 PUFF IH DAILY24 04/11/19 Tamsulosin Hcl (FLOMAX) 0.4 Mg Cap.er.24h, 2 CAP PO DAILY, #30 CAP 11 Refills 04/11/19 Torsemide (TORSEMIDE) 20 Mg Tablet, 1 TAB PO Q48H, #90 TAB 1 Refill 04/11/19 Apixaban (Eliquis) 5 Mg Tablet, 5 MG PO BID, TABLET 04/11/19 Levothyroxine Sodium (LEVOTHYROXINE SODIUM) 75 Mcg Tablet, 1 TAB PO DAILY, #30 TAB 5 Refills 04/11/19 Omeprazole (OMEPRAZOLE) 20 Mg Capsule.dr, 1 CAP PO BID, #30 CAP 5 Refills 04/11/19 Past Medical History Medical History: asthma, cardiac problems, COPD, heart valve disease Surgical History: cardiac cath, appendectomy, cholecystectomy, Colonoscopy Social History Drug Use: none Review of Systems Respiratory: cough, shortness of breath Cardiovascular: see HPI Musculoskeletal: see HPI All Other Systems: Reviewed and Negative Physical Exam General Appearance: No Apparent Distress, WD/WN Results/Orders Results/Orders Orders - KERRI SCOTT MD Cbc With Auto Diff (08/14/20 22:40) Comprehensive Metabolic Panel (08/14/20 22:40) Creatine Kinase (08/14/20 22:40) Creatine Kinase Mb (08/14/20 22:40) Troponin I (08/14/20 22:40) Probnp B-Type Corporate Paralegal (08/14/20 22:40) PT (08/14/20 22:40) Partial Thromboplastin Time. (08/14/20 22:40) Xr Chest 1v (08/14/20 22:40) Ekg-Routine (08/14/20 22:40) Vital Signs Date Time Temp Pulse Resp B/P (MAP) Pulse Ox O2 Delivery O2 Flow Rate FiO2 08/14/20 23:35 55 18 127/62 (83) 98 Room Air 08/14/20 23:04 98.9 60 18 137/79 (98) 97 Room Air 08/14/20 22:55 98.9 60 18 97 08/14/20 22:55 98.9 60 18 08/14/20 22:55 98.9 60 18 137/79 (98) 97 Room Air Laboratory Tests Test 08/14/20 22:50 White Blood Count 10.9 10^3/uL (4.5-11.0) Red Blood Count 3.34 10^6/uL (4.50-5.90) L Hemoglobin 8.6 g/dL (13.9-16.3) L Hematocrit 27.3 % (37.0-53.0) L Mean Corpuscular Volume 81.7 fL (78-100) Mean Corpuscular Hemoglobin 25.7 pg (26-34) L Mean Corpuscular Hemoglobin Concent 31.5 g/dL (33-36.5) L Red Cell Distribution Width 19.7 % (11.5-14.5) H Platelet Count 179 10^3/uL (150-400) Mean Platelet Volume 10.4 fL (7.8-11.0) Neutrophils (%) (Auto) 66.4 % (41.0-85.0) Lymphocytes (%) (Auto) 24.2 % (24.0-44.0) Monocytes (%) (Auto) 8.5 % (5.0-12.0) Neutrophils # (Auto) 7.3 10^3/uL (1.8-7.7) Lymphocytes # (Auto) 2.65 10^3/uL1 (1.0-4.8) Monocytes # (Auto) 0.9 10^3/uL (0.3-0.8) H Absolute Immature Granulocyte (auto 0.08 10^3 u/L (0-2) Absolute Eosinophils (auto) 0.0 10^3/uL (0.0-0.2) Immature Granulocytes % 0.70 % (0.00-0.50) H Eosinophils % 0.0 % (0.0-5.0) Basophils % 0.2 % (0.0-0.2) Basophils # 0.0 10^3/uL (0.0-0.1) Prothrombin Time 13.4 SEC (9.3-11.3) H Prothrombin Time INR (Non-Therap) 1.3 Activated Partial Thromboplast Time 25.4 SEC (24.67-30.72) Sodium Level 134 mmol/L (132-145) Potassium Level 4.3 mmol/L (3.6-5.2) Chloride Level 102.0 mmol/L (96-109) Carbon Dioxide Level 22.1 mmol/L (20.0-32) Anion Gap 14.2 Blood Urea Nitrogen 29 mg/dL (7-18) H Creatinine 1.31 mg/dL (0.59-1.40) Estimated GFR () 63.1 (>/=60) Est GFR (CKD-EPI)(Non-Afr [place]ic) 52.1 (>/=60) BUN/Creatinine Ratio 22.0 Glucose Level 176 mg/dL (70-110) H Calcium Level 8.5 mg/dL (8.4-10.5) Total Bilirubin 0.4 mg/dL (0.2-1.0) Aspartate Amino Transferase (AST) 22 U/L (0-35) Alanine Aminotransferase (ALT) 26 U/L (12-78) Alkaline Phosphatase 113 U/L (50-136) Total Creatine Kinase 55 U/L (39-308) Creatine Kinase MB 1.5 ng/mL (0.5-3.6) Troponin I 0.02 ng/mL (0.00-0.05) Pro-B-Type Natriuretic Peptide 45984 pg/mL (0-450) H Total Protein 7.4 g/dL (6.4-8.2) Albumin 3.3 g/dL (3.4-5.0) L Globulin 4.1 Albumin/Globulin Ratio 0.804 Progress Progress [place] [address]. [place] 08/01/20, it was only 6063. His BS is elevated at 176, also, higher than his nml in the 110-120's CXR shows cardiomegaly, but does not look changed from previous. EKG/XRAY/CT/US EKG: changed from (Pts ECG shows A-Flutter with a single PVC which is same as multiple prior ECGs. However, he has progressive ishan-lateral S-T wave changes suggestive of increasing ischemia. No acute injury seen.) ER DEPART Departure Time of Disposition: 23:54 Disposition: 09 ADMITTED INPATIENT Impression: Primary Impression: CHF exacerbation Additional Impression: Abnormal ECG Condition: Stable Referrals: JAMARI SHIELDS MD (PCP) PRIMARY CARE PROVIDER Duration or Time Spent with Pa: 25m Problem Qualifiers KERRI SCOTT MD Aug 14, 2020 22:44
[2020-08-14 22:54] LABS: BASOPHIL % 0.2 % (0.0-0.2); LYMPHOCYTES # 2.65 10^3/uL1 (1.0-4.8); LYMPHOCYTES % 24.2 % (24.0-44.0); MEAN CORP HGB 25.7 pg (26-34); MONOCYTES # 0.9 10^3/uL (0.3-0.8); MONOCYTES % 8.5 % (5.0-12.0); NEUTROPHIL # 7.3 10^3/uL (1.8-7.7); NEUTROPHILS % 66.4 % (41.0-85.0); PLATELET COUNT 179 10^3/uL (150-400); RED CELL DISTRIBUTION WIDTH 19.7 % (11.5-14.5)
[2020-08-14 22:55] VITALS: BP 137/79
[2020-08-14 23:04] VITALS: BP 137/79
[2020-08-14 23:23] LABS: CALCIUM 8.5 mg/dL (8.4-10.5); CARBON DIOXIDE 22.1 mmol/L (20.0-32)
[2020-08-14 23:35] VITALS: BP 127/62
--- NOTE | 2020-08-14 23:49 | DIREP ---
PROCEDURE:CHEST 1 VIEW COMPARISON:[facility], CR, XRAY CHEST SINGLE VW, 05/15/2020, 08:25 PM. [facility], CR, XRAY CHEST 2 VWS, 08/09/2020, 04:22 PM. [facility], CR, XRAY RIBS W/PA CHEST 3VWS-LT, 08/01/2020, 12:51 PM. INDICATIONS:shortness of breath FINDINGS: LUNGS/PLEURA:Stable mild hyperinflation with flattening of the hemidiaphragms and mild chronic interstitial changes, consistent with COPD. Interval development patchy infiltrates in the mid to lower lungs, suspicious for mild infectious pneumonitis and/or developing pneumonia. No sizable pleural effusion. No pneumothorax. VASCULATURE:No pulmonary vascular congestion. CARDIAC:Stable mild cardiomegaly. Stable postoperative changes of median sternotomy and cardiac valve replacement. Mild calcified plaque at the aortic knob. MEDIASTINUM:Normal. No visible mass or adenopathy. BONES:Stable degenerative changes involving the shoulders and thoracic spine. No acute abnormality. OTHER:Negative. CONCLUSION: 1. Development of patchy infiltrates in the mid to lower lungs, suspicious for mild infectious pneumonitis and/or developing pneumonia. 2. Stable underlying findings of COPD. 3. Stable mild cardiomegaly with postoperative changes cardiac valve replacement. No pulmonary vascular congestion. 4. Additional chronic findings, as above. Dictated by: Hammad Paul MD on 08/14/2020 at 11:46 PM
--- NOTE | 2020-08-14 23:50 | NUR ---
DR SCOTT SPOKE WITH HOSPITALIST DR TREVIZO- ADMIT PT FOR CHF AND EKG CHANGES
--- NOTE | 2020-08-15 00:10 | NUR ---
REPORT GIVEN TO JAZZY JEFFERSON GOING TO ROOM [id number]
--- NOTE | 2020-08-15 00:14 | PCM.HP ---
History of Present Illness Reason for Visit: SOB History of Present Illness Pt Eagle Roach is an 84 y.o. 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 Pt reports that he has been on Torsemide but then his medication was changed to Furosemide. He reports compliance with medication but admits that he was seen by his PCP Dr. Roth this past and was told to hold his diuretic for 2 days. Pt reports since holding his diuretic he has has increased LE edema, weight gain (total of 16 lbs over the last week; he states dry weight is 212) and progressively worsening SOB w/ productive cough of clear sputum. Denies wheezing. He denies fever, or chills. Denies N/V. Admits to orthopnea requiring 1-2 pillows at night and he regularly sleeps in a recliner. He denies compliance with limiting sodium. Denies any chest pain or SOB. Pt has frequent admissions for CHF exacerbation and last admission was in May 2020. ECHO done on 05/15/20 showed severe aortic regurgitation w/ prosthetic valve, severe tricuspid and mitral regurgitation, and dilation of left and right atrium. No additional complaints at this time. Past Medical History Cardiac: CAD, HTN, Hyperlipidemia, Other Pulmonary: Bronchitis, COPD GI: Diverticulosis Psychiatric: Anxiety Musculoskeletal: Osteoarthritis Renal/: Chronic Renal Insuff Endocrine: Hypothyroidism Travel Hx EBOLA RISK:Travel to/contact w: No Review of Systems Constitutional: No: Fever, Chills Respiratory: Cough, Shortness of breath, SOB with excertion, Sputum; No: Wheezing Cardiovascular: Orthopnea, Edema; No: Chest Pain, Palpitations Gastrointestinal: No: Nausea, Vomiting Skin: No: Rash Neurological: No: Weakness, Change in speech, Confusion Allergies: Coded Allergies: atorvastatin (Verified Allergy, Severe, MUSCLE WEAKNESS, 03/10/20) hydrochlorothiazide (Verified Allergy, Severe, HYPONATREMIA, 03/10/20) amlodipine (Verified Allergy, Intermediate, Swelling, 03/10/20) "MAKES ME RETAIN WATER REAL BAD" pregabalin (Verified Allergy, Intermediate, 03/10/20) BLURRED VISION butorphanol (Verified Allergy, Unknown, HALLUCINATIONS, 03/10/20) ibuprofen (Verified Allergy, Unknown, 03/10/20) INSTRUCTED BY DR NOT TO TAKE lisinopril (Verified Allergy, Unknown, 03/10/20) Scheduled Apixaban (Eliquis), 5 MG PO BID, (Reported) Aspirin (Aspir 81), 1 TAB PO DAILY24, (Reported) Docusate Sodium (Easy-Lax), 100 MG PO BID Furosemide (Lasix), 40 MG PO DAILY24 Gabapentin (Gabapentin), 2 CAP PO TID, (Reported) Hydralazine Hcl (Hydralazine Hcl), 2 TAB PO BID, (Reported) Levothyroxine Sodium (Levothyroxine Sodium), 1 TAB PO DAILY, (Reported) Losartan Potassium (Losartan Potassium), 2 TAB PO DAILY, (Reported) Metoprolol Tartrate 25MG (Lopresser 25MG), 12.5 MG PO BID Omeprazole (Omeprazole), 1 CAP PO BID, (Reported) Potassium Chloride (Potassium Chloride), 20 MEQ PO DAILY24 Tamsulosin Hcl (Flomax), 2 CAP PO DAILY, (Reported) Tiotropium Br/Olodaterol HCl (Stiolto Respimat Inhal [place]), 2 PUFF IH DAILY24, (Reported) Torsemide (Torsemide), 1 TAB PO Q48H, (Reported) Scheduled PRN Hydrocodone Bit/Acetaminophen (Hydrocodon-Acetaminophn 10-300), 1 TAB PO BID PRN for PAIN MODERATE, (Reported) VTE VTE Risk Total Score: >5 VTE Risk Score VTE Risk: Score 0-1 = Low Risk (Aggressive mobilization; early ambulation; no VTE prophylaxis required) Score 2: Moderate Risk (Intermittent/Pneumatic Compression Device OR Lovenox/Heparin/Coumadin) Score 3-4: High Risk (Intermittent/Pneumatic Compression Device AND Lovenox/Heparin/Coumadin) Score > or =5: Highest Risk (Intermittent/Pneumatic Compression Device AND Lovenox/Heparin/Coumadin) Antico:Hep/LMWH/Coum/Xarelto: No Mechanical device ordered: Yes Reasons not ordering prophylax: Renal impairment VTE VTE Present on Admission: No Currently receiving anticoagul: No VTE Risk Total Score: >5 Antico:Hep/LMWH/Coum/Xarelto: No Mechanical device ordered: Yes Exam Vital Signs Vital Signs Date Time Temp Pulse Resp B/P (MAP) Pulse Ox O2 Delivery O2 Flow Rate FiO2 08/14/20 23:35 55 18 127/62 (83) 98 Room Air 08/14/20 23:04 98.9 General Appearance: Alert, Oriented X3, Cooperative HEENT: Atraumatic Respiratory: Normal air movement Cardiovascular: Other (+murmur, irregularly irregular) Abdominal: No masses Extremities: Other (+edema) Skin: Other (bruising) Psych/Mental Status: Mental status NL, Mood NL Assessment/Plan Assessment/Plan Assessment/Plan Pt Eagle Roach is an 84 y.o. 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 He reports compliance with medication but admits that he was seen by his PCP Dr. Roth this past and was told to hold his diuretic for 2 days. Pt has frequent admissions for CHF exacerbation and last admission was in May 2020. ECHO done on 05/15/20 showed severe aortic regurgitation w/ prosthetic valve, severe tricuspid and mitral regurgitation, and dilation of left and right atrium. Today BNP>17,000 1) Acute decompensated heart failure secondary to diastolic dysfunction. -Secondary to medical non-compliance with diuretic therapy. -Daily weights -Strict I/O's -Na restriction -1.5 L fluid restriction -Held home dose of Torsemide/Lasix -Started on IV Lasix 40 mg 2) Severe mitral regurgitation -Stable, per most recent Cardiology notes, pt declined surgical intervention. 3) Severe aortic regurgitation -Stable 4) History of bioprosthetic aortic valve -Stable -replacement done in 2007. 5) Paroxysmal atrial flutter -Stable -Rate controlled -On chronic anticoagulation w/ Eliquis 6) Nonobstructive coronary artery disease by left heart catheterization done, 09/2019. 7) Chronic obstructive pulmonary disease -Stable; no evidence of acute exacerbation -Continue home meds 8) Hypertension -Uncontrolled -Resumed home medications 9) Obstructive sleep apnea -Stable -Pt reports unable to tolerate CPAP/BiPAP 10) Type 2 diabetes mellitus -Last HgbA1c was 7.3% -ISS 11) Diet-2gram sodium diet 12) DVT prophylaxis-Continue home dose of Eliquis 13) Code status-Full code -Pt was seen and examined at bedside via telehealth. All labs and imaging personally reviewed by me. -Case discussed w/ ED attending physician. Patient History: FH: cancer G8 BROTHER, , Age:50's - 60 G8 BROTHER, , Age:50's - 60 Hypertension 33 FATHER, , Age:61 No Family History of: Alzheimer's disease Asthma Congestive heart failure Parkinson's disease Unknown ELSI MCKINNEY DO Aug 15, 2020 00:14
--- NOTE | 2020-08-15 00:22 | NUR ---
ARRIVAL Pt arrived to unit via wheelchair to room 339. Report received from SULMA Morris. This RN performed a head to toe assessment. Pt is an 84 y/o male who is AAO x4. Pt reports having a history of CFH and c/o swollen feet since 2029 yesterday evening. The pt's feet are slightly edematous but are not pitting. Pt also c/o of pain at a 3 or 4 on a scale from 1-10 in bilateral lower extremities. Lung sounds are clear bilaterally with no adventitious lung sounds heard upon auscultation. Abdomen is wnl with bowel sounds auscultated x4 and no abdominal tenderness. Skin is warm, dry, thin and appropriate for ethnicity. There is slight bruising to left arm, but pt reports being on the blood thinner eliquis and has since been bruising easier than usual. Dr. Khan contacted via telemed to also assess and speak with pt. No further complaints at this time. Bed is locked, in lowest position, semi fowlers. Red non slip socks applied to pt, and call light in reach. Will continue to monitor.
[2020-08-15] MEDS ORDERED: TYLENOL PO PRN (00:30)
[2020-08-15 00:47] VITALS: BP 144/68
[2020-08-15] MEDS ORDERED: DEXTROSE 50%-WATER SYRINGE IV PRN (02:00)
[2020-08-15] MEDS ORDERED: D5W 1000ML 1,000 ML IV PRN (02:00)
[2020-08-15] MEDS: ASPIRIN EC PO SCH (02:22)
[2020-08-15] MEDS: NORCO 10MG PO PRN ×2 (02:22→18:02)
[2020-08-15] MEDS ORDERED: LASIX IV SCH (02:30)
[2020-08-15 04:00] VITALS: BP 132/63
--- NOTE | 2020-08-15 04:15 | PCM.EKG ---
[facility] Test Date: 2020-08-14 Test Time: 23:06:43 Pat Name: LEE BARKSDALE Department: Patient ID: [id number] Room: 339 Gender: M [employer] Assistant: SHARONA : 1935 Requested By: NORBERT SCOTT Order Number: [id number] Reading MD: Norbert Scott Measurements Intervals [place] Rate: 54 P: SD: QRS: 63 QRSD: 94 T: 95 QT: 455 QTc: 432 Interpretive Statements Atrial flutter Repol abnrm suggests ischemia, anterolateral Compared to ECG 08/01/2020 14:47:45 AV block, advanced (high-grade) no longer present Possible ischemia still present, however, it is looking worse than on 08/01/20 (This information was passed on to the hospitalist, Dr. Khan Electronically Signed On 08-22-2020 11:11:30 SHIPPING/RECEIVING CLERK by Norbert Scott Please click the below link to view image of tracing.
[2020-08-15 05:45] LABS: BASOPHIL % 0.1 % (0.0-0.2); LYMPHOCYTES # 3.95 10^3/uL1 (1.0-4.8); LYMPHOCYTES % 31.4 % (24.0-44.0); MEAN CORP HGB 25.3 pg (26-34); MONOCYTES # 1.3 10^3/uL (0.3-0.8); NEUTROPHIL # 7.3 10^3/uL (1.8-7.7); NEUTROPHILS % 58.3 % (41.0-85.0); PLATELET COUNT 168 10^3/uL (150-400); RED CELL DISTRIBUTION WIDTH 19.8 % (11.5-14.5)
[2020-08-15 05:50] LABS: CALCIUM 8.4 mg/dL (8.4-10.5); CARBON DIOXIDE 22.4 mmol/L (20.0-32)
[2020-08-15] MEDS: HUMALOG SQ SCH ×4 (07:30→20:42)
[2020-08-15 08:32] VITALS: BP 132/56
[2020-08-15] MEDS: COZAAR PO SCH (09:00)
[2020-08-15] MEDS: APRESOLINE PO SCH ×2 (09:00→20:41)
--- NOTE | 2020-08-15 09:11 | NUR ---
DISCHARGE PLANNING: PT LIVE HOME WITH SPOUSE. PT HAS DME IN PLACE INCLUDING CANE, WALKER, AND SHOWER CHAIR. PT DENIES THE NEED FOR HOME OXYGEN AT THIS TIME. PT CURRENTLY HAS [facility] IN PLACE OUT OF [place]. PT'S PCP IS DR. SHIELDS. PT AT THIS TIME DOES NOT FEEL HE IS STRONG ENOUGH TO RETURN HOME AND WOULD LIKE TO GO TO [facility] FOR [facility]. VERBAL CONSENT GIVEN TO FAX OVER CLINICAL TO [facility]. Shelly MEJIA NOTIFIED OF REFERRAL. PT PENDING ACCEPTANCE INTO [facility] AT THIS TIME. CM/SS TO CONTINUE TO FOLLOW AND MONITOR DISCHARGE PLANNING NEEDS.
[2020-08-15] MEDS: FLOMAX PO SCH (09:31)
[2020-08-15] MEDS: COLACE PO SCH ×2 (09:31→20:42)
[2020-08-15] MEDS: ELIQUIS PO SCH ×2 (09:31→20:42)
[2020-08-15] MEDS: LOPRESSER PO SCH ×2 (09:31→20:42)
[2020-08-15] MEDS: KLOR-CON 10 PO SCH (09:31)
[2020-08-15] MEDS: SYNTHROID PO SCH (09:31)
[2020-08-15] MEDS: NEURONTIN PO SCH ×3 (09:32→20:42)
[2020-08-15] MEDS: PROTONIX PO SCH (09:32)
--- NOTE | 2020-08-15 10:02 | DIREP ---
PROCEDURE:CHEST 1 VIEW COMPARISON:[facility], CR, XRAY CHEST SINGLE VW, 08/14/2020, 10:49 PM. INDICATIONS:CHF EXACERBATION FINDINGS: LUNGS/PLEURA:Mild hyperaeration and chronic interstitial changes. No infiltrate or pleural effusion. CARDIAC:Prominent cardiac silhouette, valve prosthesis and mildly prominent central pulmonary vascularity. Azygous venous distention. Aortic arch calcifications. MEDIASTINUM:Normal. BONES:Bilateral shoulder arthrosis. OTHER:No additional findings. CONCLUSION:Mild CHF or volume overload superimposed on mild chronic lung disease. Dictated by: Leslee Ricardo MD on 08/15/2020 at 09:57 AM
[2020-08-15] MEDS ORDERED: LASIX IV STA (10:24)
--- NOTE | 2020-08-15 11:03 | NUR ---
[facility]: PER Shelly MEJIA, PT HAS BEEN ACCEPTED INTO [facility] AT THIS TIME. NO FURTHER CM/SS NEEDS NOTED AT THIS TIME.
[2020-08-15 12:21] VITALS: BP 140/67
--- NOTE | 2020-08-15 12:26 | PRM.PN ---
Subjective Subjective Date: Aug 15, 2020 Time: 12:21 Subjective Seen this AM at bedside. Looks quite comfortable actually. Was on phone with his family. SOB is improving. Leg edema is much improved from yesterday per pt. Still fairly weak however. Still with some difficulty swallowing. No other complaints. VTE VTE Risk Total Score: >5 VTE Risk Score VTE Risk: Score 0-1 = Low Risk (Aggressive mobilization; early ambulation; no VTE prophylaxis required) Score 2: Moderate Risk (Intermittent/Pneumatic Compression Device OR Lovenox/Heparin/Coumadin) Score 3-4: High Risk (Intermittent/Pneumatic Compression Device AND Lovenox/Heparin/Coumadin) Score > or =5: Highest Risk (Intermittent/Pneumatic Compression Device AND Lovenox/Heparin/Coumadin) Antico:Hep/LMWH/Coum/Xarelto: No Mechanical device ordered: Yes Reasons not ordering prophylax: Renal impairment Review of Systems Constitutional: Weakness; No: Fever, Chills Respiratory: Cough, Shortness of breath, SOB with excertion, Sputum; No: Wheezing Cardiovascular: Orthopnea, Edema; No: Chest Pain, Palpitations Gastrointestinal: No: Nausea, Vomiting Genitourinary: No Dysuria, No Frequency, No Incontinence, No Hematuria, No Retention, No Other Skin: No: Rash Neurological: No: Weakness, Change in speech, Confusion Allergies: Coded Allergies: atorvastatin (Verified Allergy, Severe, MUSCLE WEAKNESS, 03/10/20) hydrochlorothiazide (Verified Allergy, Severe, HYPONATREMIA, 03/10/20) amlodipine (Verified Allergy, Intermediate, Swelling, 03/10/20) "MAKES ME RETAIN WATER REAL BAD" pregabalin (Verified Allergy, Intermediate, 03/10/20) BLURRED VISION butorphanol (Verified Allergy, Unknown, HALLUCINATIONS, 03/10/20) ibuprofen (Verified Allergy, Unknown, 03/10/20) INSTRUCTED BY DR NOT TO TAKE lisinopril (Verified Allergy, Unknown, 03/10/20) Scheduled Apixaban (Eliquis), 5 MG PO BID, (Reported) Aspirin (Aspir 81), 1 TAB PO DAILY24, (Reported) Docusate Sodium (Easy-Lax), 100 MG PO BID Furosemide (Lasix), 40 MG PO DAILY24 Gabapentin (Gabapentin), 2 CAP PO TID, (Reported) Hydralazine Hcl (Hydralazine Hcl), 2 TAB PO BID, (Reported) Levothyroxine Sodium (Levothyroxine Sodium), 1 TAB PO DAILY, (Reported) Losartan Potassium (Losartan Potassium), 2 TAB PO DAILY, (Reported) Metoprolol Tartrate 25MG (Lopresser 25MG), 12.5 MG PO BID Omeprazole (Omeprazole), 1 CAP PO BID, (Reported) Potassium Chloride (Potassium Chloride), 20 MEQ PO DAILY24 Tamsulosin Hcl (Flomax), 2 CAP PO DAILY, (Reported) Tiotropium Br/Olodaterol HCl (Stiolto Respimat Inhal [place]), 2 PUFF IH DAILY24, (Reported) Torsemide (Torsemide), 1 TAB PO Q48H, (Reported) Scheduled PRN Hydrocodone Bit/Acetaminophen (Hydrocodon-Acetaminophn 10-300), 1 TAB PO BID PRN for PAIN MODERATE, (Reported) Objective Vitals and I/O Vital Sign - Last 24 Hours 08/15/20 08/15/20 08/15/20 08/15/20 08:32 09:00 09:00 09:31 Temp 97.6 Pulse 52 52 52 Resp 19 B/P (MAP) 132/56 (81) 132/56 132/56 132/56 Pulse Ox 97 08/15/20 08/15/20 10:23 10:33 B/P (MAP) 132/56 O2 Delivery Room Air General: Alert, Oriented X3, Cooperative HEENT: Atraumatic Lungs: Normal air movement Heart: Other (+murmur, irregularly irregular) Abdomen: No masses Extremities: No clubbing, No cyanosis, Normal pulses, No tenderness/swelling, Other (3+ mild pitting edema.) Neuro: Normal speech, Strength at 5/5 X4 ext Psych/Mental Status: Mental status NL, Mood NL All Results(Lab/Rad) Laboratory Tests Test 08/14/20 22:50 08/15/20 05:17 08/15/20 07:49 08/15/20 11:19 White Blood Count 10.9 10^3/uL 12.6 10^3/uL Red Blood Count 3.34 10^6/uL 3.12 10^6/uL Hemoglobin 8.6 g/dL 7.9 g/dL Hematocrit 27.3 % 25.3 % Mean Corpuscular Volume 81.7 fL 81.1 fL Mean Corpuscular Hemoglobin 25.7 pg 25.3 pg Mean Corpuscular Hemoglobin Concent 31.5 g/dL 31.2 g/dL Red Cell Distribution Width 19.7 % 19.8 % Platelet Count 179 10^3/uL 168 10^3/uL Mean Platelet Volume 10.4 fL 9.9 fL Neutrophils (%) (Auto) 66.4 % 58.3 % Lymphocytes (%) (Auto) 24.2 % 31.4 % Monocytes (%) (Auto) 8.5 % 10.0 % Neutrophils # (Auto) 7.3 10^3/uL 7.3 10^3/uL Lymphocytes # (Auto) 2.65 10^3/uL1 3.95 10^3/uL1 Monocytes # (Auto) 0.9 10^3/uL 1.3 10^3/uL Absolute Immature Granulocyte (auto 0.08 10^3 u/L 0.02 10^3 u/L Absolute Eosinophils (auto) 0.0 10^3/uL 0.0 10^3/uL Immature Granulocytes % 0.70 % 0.20 % Eosinophils % 0.0 % 0.0 % Basophils % 0.2 % 0.1 % Basophils # 0.0 10^3/uL 0.0 10^3/uL Prothrombin Time 13.4 SEC Prothrombin Time INR (Non-Therap) 1.3 Activated Partial Thromboplast Time 25.4 SEC Sodium Level 134 mmol/L 138 mmol/L Potassium Level 4.3 mmol/L 4.3 mmol/L Chloride Level 102.0 mmol/L 104.0 mmol/L Carbon Dioxide Level 22.1 mmol/L 22.4 mmol/L Anion Gap 14.2 15.9 Blood Urea Nitrogen 29 mg/dL 30 mg/dL Creatinine 1.31 mg/dL 1.28 mg/dL Estimated GFR () 63.1 64.8 Est GFR (CKD-EPI)(Non-Afr [place]) 52.1 53.5 BUN/Creatinine Ratio 22.0 23.0 Glucose Level 176 mg/dL 137 mg/dL Calcium Level 8.5 mg/dL 8.4 mg/dL Total Bilirubin 0.4 mg/dL Aspartate Amino Transf (AST/SGOT) 22 U/L Alanine Aminotransferase (ALT/SGPT) 26 U/L Alkaline Phosphatase 113 U/L Total Creatine Kinase 55 U/L Creatine Kinase MB 1.5 ng/mL Troponin I 0.02 ng/mL Pro-B-Type Natriuretic Peptide 10695 pg/mL 88576 pg/mL Total Protein 7.4 g/dL Albumin 3.3 g/dL Globulin 4.1 Albumin/Globulin Ratio 0.804 Bedside Glucose 105 119 Current Medications Medications (Trade) Dose Ordered Sig/Sal Route PRN Reason Start Time Stop Time Status Last Admin Dose Admin Acetaminophen (Tylenol) 1,000 mg Q6H PRN PO PAIN 1 - 3 08/15/20 00:30 09/14/20 00:29 Insulin Human Lispro (Humalog) 0-140 0 Units 141-200... ACHS SQ 08/15/20 07:30 09/14/20 07:29 Dextrose 1,000 ml @ 100 mls/hr Q10H PRN IV HYPOGLYCEMIA 08/15/20 02:00 09/14/20 01:59 Dextrose (Dextrose 50%-Water Syringe) 25 ml STAT PRN IV HYPOGLYCEMIA 08/15/20 02:00 09/14/20 01:59 Aspirin (Aspirin Ec) 81 mg DAILY24 PO 08/15/20 02:00 09/14/20 01:59 08/15/20 02:22 Docusate Sodium (Colace) 100 mg BID PO 08/15/20 09:00 09/14/20 08:59 08/15/20 09:31 Gabapentin (Neurontin) 200 mg TID PO 08/15/20 09:00 09/14/20 08:59 08/15/20 09:32 Hydralazine HCl (Apresoline) 50 mg BID PO 08/15/20 09:00 09/14/20 08:59 Levothyroxine Sodium (Synthroid) 75 mcg DAILY PO 08/15/20 09:00 09/14/20 08:59 08/15/20 09:31 Losartan Potassium (Cozaar) 100 mg DAILY PO 08/15/20 09:00 09/14/20 08:59 Metoprolol Tartrate (Lopresser) 12.5 mg BID PO 08/15/20 09:00 09/14/20 08:59 08/15/20 09:31 Pantoprazole Sodium (Protonix) 40 mg DAILY PO 08/15/20 09:00 09/14/20 08:59 08/15/20 09:32 Tamsulosin HCl (Flomax) 0.8 mg DAILY PO 08/15/20 09:00 09/14/20 08:59 08/15/20 09:31 Potassium Chloride (Klor-Con 10) 20 meq DAILY PO 08/15/20 09:00 09/14/20 08:59 08/15/20 09:31 Acetaminophen/ Hydrocodone Bitart ([place] 10mg) 1 each Q8HR PRN PO PAIN 7 - 10 08/15/20 02:30 09/14/20 02:29 08/15/20 02:22 Furosemide (Lasix) 40 mg DAILY IV 08/15/20 02:30 08/15/20 10:26 DC 08/15/20 02:23 Budesonide/ Formoterol Fumarate (Symbicort 160-4.5 Mcg Inhaler) 2 inh BID IH 08/15/20 09:00 09/14/20 08:59 Furosemide (Lasix) 20 mg STAT STAT IV 08/15/20 10:24 08/15/20 10:33 DC 08/15/20 10:33 Course Sepsis Screening Results: Posi: NEGATIVE Sepsis Qualifier/Stage: NO DEFINITE RISK Duration or Total Time Spent w: 25m Vitals & review Data Vital Sign - Last 24 Hours 08/15/20 08/15/20 08/15/20 08/15/20 08:32 09:00 09:00 09:31 Temp 97.6 Pulse 52 52 52 Resp 19 B/P (MAP) 132/56 (81) 132/56 132/56 132/56 Pulse Ox 97 08/15/20 08/15/20 10:23 10:33 B/P (MAP) 132/56 O2 Delivery Room Air Laboratory Tests Test 08/14/20 22:50 08/15/20 05:17 08/15/20 07:49 08/15/20 11:19 White Blood Count 10.9 10^3/uL 12.6 10^3/uL Red Blood Count 3.34 10^6/uL 3.12 10^6/uL Hemoglobin 8.6 g/dL 7.9 g/dL Hematocrit 27.3 % 25.3 % Mean Corpuscular Volume 81.7 fL 81.1 fL Mean Corpuscular Hemoglobin 25.7 pg 25.3 pg Mean Corpuscular Hemoglobin Concent 31.5 g/dL 31.2 g/dL Red Cell Distribution Width 19.7 % 19.8 % Platelet Count 179 10^3/uL 168 10^3/uL Mean Platelet Volume 10.4 fL 9.9 fL Neutrophils (%) (Auto) 66.4 % 58.3 % Lymphocytes (%) (Auto) 24.2 % 31.4 % Monocytes (%) (Auto) 8.5 % 10.0 % Neutrophils # (Auto) 7.3 10^3/uL 7.3 10^3/uL Lymphocytes # (Auto) 2.65 10^3/uL1 3.95 10^3/uL1 Monocytes # (Auto) 0.9 10^3/uL 1.3 10^3/uL Absolute Immature Granulocyte (auto 0.08 10^3 u/L 0.02 10^3 u/L Absolute Eosinophils (auto) 0.0 10^3/uL 0.0 10^3/uL Immature Granulocytes % 0.70 % 0.20 % Eosinophils % 0.0 % 0.0 % Basophils % 0.2 % 0.1 % Basophils # 0.0 10^3/uL 0.0 10^3/uL Prothrombin Time 13.4 SEC Prothrombin Time INR (Non-Therap) 1.3 Activated Partial Thromboplast Time 25.4 SEC Sodium Level 134 mmol/L 138 mmol/L Potassium Level 4.3 mmol/L 4.3 mmol/L Chloride Level 102.0 mmol/L 104.0 mmol/L Carbon Dioxide Level 22.1 mmol/L 22.4 mmol/L Anion Gap 14.2 15.9 Blood Urea Nitrogen 29 mg/dL 30 mg/dL Creatinine 1.31 mg/dL 1.28 mg/dL Estimated GFR () 63.1 64.8 Est GFR (CKD-EPI)(Non-Afr [place]) 52.1 53.5 BUN/Creatinine Ratio 22.0 23.0 Glucose Level 176 mg/dL 137 mg/dL Calcium Level 8.5 mg/dL 8.4 mg/dL Total Bilirubin 0.4 mg/dL Aspartate Amino Transf (AST/SGOT) 22 U/L Alanine Aminotransferase (ALT/SGPT) 26 U/L Alkaline Phosphatase 113 U/L Total Creatine Kinase 55 U/L Creatine Kinase MB 1.5 ng/mL Troponin I 0.02 ng/mL Pro-B-Type Natriuretic Peptide 31562 pg/mL 06264 pg/mL Total Protein 7.4 g/dL Albumin 3.3 g/dL Globulin 4.1 Albumin/Globulin Ratio 0.804 Bedside Glucose 105 119 Current Medications Medications (Trade) Dose Ordered Sig/Sal PRN Reason Start Time Stop Time Status Last Admin Acetaminophen (Tylenol) 1,000 mg Q6H PRN PAIN 1 - 3 08/15/20 00:30 09/14/20 00:29 Acetaminophen/ Hydrocodone Bitart ([place] 10mg) 1 each Q8HR PRN PAIN 7 - 10 08/15/20 02:30 09/14/20 02:29 08/15/20 02:22 Aspirin (Aspirin Ec) 81 mg DAILY24 08/15/20 02:00 09/14/20 01:59 08/15/20 02:22 Budesonide/ Formoterol Fumarate (Symbicort 160-4.5 Mcg Inhaler) 2 inh BID 08/15/20 09:00 09/14/20 08:59 Dextrose 1,000 ml @ 100 mls/hr Q10H PRN HYPOGLYCEMIA 08/15/20 02:00 09/14/20 01:59 Dextrose (Dextrose 50%-Water Syringe) 25 ml STAT PRN HYPOGLYCEMIA 08/15/20 02:00 09/14/20 01:59 Docusate Sodium (Colace) 100 mg BID 08/15/20 09:00 09/14/20 08:59 08/15/20 09:31 Gabapentin (Neurontin) 200 mg TID 08/15/20 09:00 09/14/20 08:59 08/15/20 09:32 Hydralazine HCl (Apresoline) 50 mg BID 08/15/20 09:00 09/14/20 08:59 Insulin Human Lispro (Humalog) 0-140 0 Units 141-200... ACHS 08/15/20 07:30 09/14/20 07:29 Levothyroxine Sodium (Synthroid) 75 mcg DAILY 08/15/20 09:00 09/14/20 08:59 08/15/20 09:31 Losartan Potassium (Cozaar) 100 mg DAILY 08/15/20 09:00 09/14/20 08:59 Metoprolol Tartrate (Lopresser) 12.5 mg BID 08/15/20 09:00 09/14/20 08:59 08/15/20 09:31 Pantoprazole Sodium (Protonix) 40 mg DAILY 08/15/20 09:00 09/14/20 08:59 08/15/20 09:32 Potassium Chloride (Klor-Con 10) 20 meq DAILY 08/15/20 09:00 09/14/20 08:59 08/15/20 09:31 Tamsulosin HCl (Flomax) 0.8 mg DAILY 08/15/20 09:00 09/14/20 08:59 08/15/20 09:31 Sepsis Infection Criteria Pres: Documented Infection LEVEL 1 SEPSIS INFECTION CRITE: Cough/Shortness of Breath LEVEL 2-SIRS (LIST ALL THAT AP: None/Not assessed Cardiovascular Evidence: Not Assessed or None Hematologic Evidence: None/Not assessed Hepatic Evidence: None/Not assessed Metabolic Evidence: None/Not assessed Neurological Evidence: None/Not assessed Respiratory Evidence: None/Not assessed Renal Evidence: None/Not assessed O2 Sat by Pulse Oximetry: 97 Assessment/Plan Assessment/Plan Assessment/Plan Pt Eagle Roach is an 84 y.o. 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 He reports compliance with medication but admits that he was seen by his PCP Dr. Shields this past and was told to hold his diuretic for 2 days. Pt has frequent admissions for CHF exacerbation and last admission was in May 2020. ECHO done on 05/15/20 showed severe aortic regurgitation w/ prosthetic valve, severe tricuspid and mitral regurgitation, and dilation of left and right atrium. Today BNP 20,000 1) Acute decompensated heart failure secondary to diastolic dysfunction. -Secondary to medical non-compliance with diuretic therapy. -Daily weights -Strict I/O's -Na restriction -1.5 L fluid restriction -Cont IV Lasix 40 mg,, may consider low-dose Lasix gtt. -Add Entresto when appropriate. 2) Severe mitral regurgitation -Stable, per most recent Cardiology notes, pt declined surgical intervention. - Follow up with Dr. Grey after d/c. 3) Severe aortic regurgitation -Stable. - Afterload reduction. 4) History of bioprosthetic aortic valve -Stable -replacement done in 2007. 5) Paroxysmal atrial flutter -Stable -Rate controlled -On chronic anticoagulation w/ Eliquis 6) Nonobstructive coronary artery disease by left heart catheterization done, 09/2019. 7) Chronic obstructive pulmonary disease -Stable; no evidence of acute exacerbation -Continue home meds 8) Hypertension -Uncontrolled -Resumed home medications 9) Obstructive sleep apnea -Stable -Pt reports unable to tolerate CPAP/BiPAP 10) Type 2 diabetes mellitus -Last HgbA1c was 7.3% -ISS 11.) DVT prophylaxis-Continue home dose of Eliquis Approx 65 minutes spent in total patient care today. Greater than 50% of this time was spent in counseling and coordination of care. JAMARI SHIELDS MD Aug 15, 2020 12:26
[2020-08-15] MEDS: SYMBICORT 160-4.5 MCG INHALER IH SCH ×2 (13:30→22:00)
--- NOTE | 2020-08-15 13:31 | DIET.OP ---
Nutrition Asmt/Malnutrit 2-17 Actual Date of Review: Aug 15, 2020 Nutritional Screening: Other (dysphagia, MBSS f/u) Diagnosis: CHF exacerbation Pertinent Medical Hx/Surgical: CHF, COPD, HLD, hypothyroidism, CAD, HTN, diverticulosis Subjective Information: telehealth assessment - pt presented to ER after noticing increased swelling to legs after he was told to hold his diuretic for 2 days by his PCP. Pt reports increased LE edema, weight gain (total of 16 lbs over the last week; he states dry weight is 212) and progressively worsening SOB. Pt already had a MBSS scheduled for today previously. Current Diet Order/Nutrition S: 2g Na, low fat/low cholesterol Patient /S.O: Not Indicated Pertinent Meds Current Medications Medications (Trade) Dose Ordered Sig/Sal PRN Reason Start Time Stop Time Status Last Admin Acetaminophen (Tylenol) 1,000 mg Q6H PRN PAIN 1 - 3 08/15/20 00:30 09/14/20 00:29 Acetaminophen/ Hydrocodone Bitart ([place] 10mg) 1 each Q8HR PRN PAIN 7 - 10 08/15/20 02:30 09/14/20 02:29 08/15/20 02:22 Aspirin (Aspirin Ec) 81 mg DAILY24 08/15/20 02:00 09/14/20 01:59 08/15/20 02:22 Budesonide/ Formoterol Fumarate (Symbicort 160-4.5 Mcg Inhaler) 2 inh BID 08/15/20 09:00 09/14/20 08:59 Dextrose 1,000 ml @ 100 mls/hr Q10H PRN HYPOGLYCEMIA 08/15/20 02:00 09/14/20 01:59 Dextrose (Dextrose 50%-Water Syringe) 25 ml STAT PRN HYPOGLYCEMIA 08/15/20 02:00 09/14/20 01:59 Docusate Sodium (Colace) 100 mg BID 08/15/20 09:00 09/14/20 08:59 08/15/20 09:31 Gabapentin (Neurontin) 200 mg TID 08/15/20 09:00 09/14/20 08:59 08/15/20 09:32 Hydralazine HCl (Apresoline) 50 mg BID 08/15/20 09:00 09/14/20 08:59 Insulin Human Lispro (Humalog) 0-140 0 Units 141-200... ACHS 08/15/20 07:30 09/14/20 07:29 Levothyroxine Sodium (Synthroid) 75 mcg DAILY 08/15/20 09:00 09/14/20 08:59 08/15/20 09:31 Losartan Potassium (Cozaar) 100 mg DAILY 08/15/20 09:00 09/14/20 08:59 Metoprolol Tartrate (Lopresser) 12.5 mg BID 08/15/20 09:00 09/14/20 08:59 08/15/20 09:31 Pantoprazole Sodium (Protonix) 40 mg DAILY 08/15/20 09:00 09/14/20 08:59 08/15/20 09:32 Potassium Chloride (Klor-Con 10) 20 meq DAILY 08/15/20 09:00 09/14/20 08:59 08/15/20 09:31 Spironolactone (Aldactone) 12.5 mg DAILY 08/16/20 09:00 09/15/20 08:59 Tamsulosin HCl (Flomax) 0.8 mg DAILY 08/15/20 09:00 09/14/20 08:59 08/15/20 09:31 Pertinent Labs Laboratory Tests Test 08/14/20 22:50 08/15/20 05:17 08/15/20 07:49 08/15/20 11:19 White Blood Count 10.9 10^3/uL 12.6 10^3/uL Red Blood Count 3.34 10^6/uL 3.12 10^6/uL Hemoglobin 8.6 g/dL 7.9 g/dL Hematocrit 27.3 % 25.3 % Mean Corpuscular Volume 81.7 fL 81.1 fL Mean Corpuscular Hemoglobin 25.7 pg 25.3 pg Mean Corpuscular Hemoglobin Concent 31.5 g/dL 31.2 g/dL Red Cell Distribution Width 19.7 % 19.8 % Platelet Count 179 10^3/uL 168 10^3/uL Mean Platelet Volume 10.4 fL 9.9 fL Neutrophils (%) (Auto) 66.4 % 58.3 % Lymphocytes (%) (Auto) 24.2 % 31.4 % Monocytes (%) (Auto) 8.5 % 10.0 % Neutrophils # (Auto) 7.3 10^3/uL 7.3 10^3/uL Lymphocytes # (Auto) 2.65 10^3/uL1 3.95 10^3/uL1 Monocytes # (Auto) 0.9 10^3/uL 1.3 10^3/uL Absolute Immature Granulocyte (auto 0.08 10^3 u/L 0.02 10^3 u/L Absolute Eosinophils (auto) 0.0 10^3/uL 0.0 10^3/uL Immature Granulocytes % 0.70 % 0.20 % Eosinophils % 0.0 % 0.0 % Basophils % 0.2 % 0.1 % Basophils # 0.0 10^3/uL 0.0 10^3/uL Prothrombin Time 13.4 SEC Prothrombin Time INR (Non-Therap) 1.3 Activated Partial Thromboplast Time 25.4 SEC Sodium Level 134 mmol/L 138 mmol/L Potassium Level 4.3 mmol/L 4.3 mmol/L Chloride Level 102.0 mmol/L 104.0 mmol/L Carbon Dioxide Level 22.1 mmol/L 22.4 mmol/L Anion Gap 14.2 15.9 Blood Urea Nitrogen 29 mg/dL 30 mg/dL Creatinine 1.31 mg/dL 1.28 mg/dL Estimated GFR () 63.1 64.8 Est GFR (CKD-EPI)(Non-Afr [place]) 52.1 53.5 BUN/Creatinine Ratio 22.0 23.0 Glucose Level 176 mg/dL 137 mg/dL Calcium Level 8.5 mg/dL 8.4 mg/dL Total Bilirubin 0.4 mg/dL Aspartate Amino Transf (AST/SGOT) 22 U/L Alanine Aminotransferase (ALT/SGPT) 26 U/L Alkaline Phosphatase 113 U/L Total Creatine Kinase 55 U/L Creatine Kinase MB 1.5 ng/mL Troponin I 0.02 ng/mL Pro-B-Type Natriuretic Peptide 01386 pg/mL 99297 pg/mL Total Protein 7.4 g/dL Albumin 3.3 g/dL Globulin 4.1 Albumin/Globulin Ratio 0.804 Bedside Glucose 105 119 Height (Feet): 5 Height (Inches): 8 Current Weight: 225 Usual Weight: 212 Recent Weight Change: Yes (fluid) Weight Status: Obese Difficult in: Swallowing Food Allergies: No Cultural/Ethnic/Jew Jerri: none Calories/Kcals/K-30 kcal/kg IBW Kcals Calculated: 6545-6630 kcal Protein: Use Current Weight Protein g/k.7-0.9 g/kg Protein Calculated: 71-92g Fluid: ml: 3362-6606 ml or 1ml/kcal RD Comments: Pt just admitted today. No po intake to assess. Continue to monitor BG and correct as indicated. RD to follow results of MBSS, diet tolerance, po intake, weight, and education needs. Malnutrtion/Nutrition Risk Edu: No MD Notificiation Needed?: No Elba Turner Aug 15, 2020 13:31
--- NOTE | 2020-08-15 15:29 | DIREP ---
PROCEDURE:XR BARIUM SWALLOW - MODIFIED COMPARISON:None. INDICATIONS: Coughing with meals SECONDARY INDICATION: Pinching sensation in the throat TECHNIQUE:A comprehensive fluoroscopic examination of swallowing was performed, utilizing a variety of barium consistencies. FINDINGS: PHARYNGEAL PHASE:Penetration. ASPIRATION:Present. OTHER:Negative. FLUORO TIME: 3.2 minutes NUMBER OF IMAGES: 1 CONCLUSION: Penetration and aspiration present during exam. Dictated by: Nini Harris MD on 08/15/2020 at 03:26 PM
[2020-08-15 16:53] VITALS: BP 140/67
[2020-08-15 19:18] VITALS: BP 143/83
--- NOTE | 2020-08-15 23:51 | NUR ---
VITALS I asked the tech not to take Pt's vitals at midnight. Pt requested not to be disturbed after I gave him his Tylenol. Pt has had a lot of pain in his legs and was finally resting peacefully. Vitals will be done at 0400.
[2020-08-16 01:12] VITALS: BP 143/83
[2020-08-16] MEDS: ASPIRIN EC PO SCH (01:12)
[2020-08-16 04:06] VITALS: BP 145/63
[2020-08-16 05:15] LABS: MEAN CORP HGB 25.6 pg (26-34)
[2020-08-16 06:16] LABS: CALCIUM 8.6 mg/dL (8.4-10.5); CARBON DIOXIDE 24.2 mmol/L (20.0-32)
--- NOTE | 2020-08-16 06:45 | NUR ---
REPORT RECEIVED REPORT FROM [facility]. ASSUMED PATIENT CARE AT THIS TIME.
[2020-08-16] MEDS: HUMALOG SQ SCH ×4 (07:30→21:00)
[2020-08-16] MEDS: SYMBICORT 160-4.5 MCG INHALER IH SCH ×2 (08:30→21:00)
[2020-08-16] MEDS: COLACE PO SCH ×2 (09:40→21:00)
[2020-08-16] MEDS: COZAAR PO SCH (09:40)
[2020-08-16] MEDS: SYNTHROID PO SCH (09:40)
[2020-08-16] MEDS: APRESOLINE PO SCH ×2 (09:41→21:00)
[2020-08-16] MEDS: ALDACTONE PO SCH (09:41)
[2020-08-16] MEDS: FLOMAX PO SCH (09:41)
[2020-08-16] MEDS: PROTONIX PO SCH (09:41)
[2020-08-16] MEDS: LOPRESSER PO SCH ×2 (09:42→21:00)
[2020-08-16] MEDS: KLOR-CON 10 PO SCH (09:42)
[2020-08-16] MEDS: NEURONTIN PO SCH ×3 (09:42→21:00)
[2020-08-16] MEDS: ELIQUIS PO SCH ×2 (09:43→21:00)
[2020-08-16 10:36] VITALS: BP 145/63
[2020-08-16 12:03] VITALS: BP 127/62
[2020-08-16] MEDS: NORCO 10MG PO PRN ×2 (14:19→22:00)
--- NOTE | 2020-08-16 16:43 | DIET.OP ---
Nutrition Asmt/Malnutrit 2-17 Actual Date of Review: Aug 16, 2020 Diagnosis: CHF exacerbation Pertinent Medical Hx/Surgical: CHF, COPD, HLD, hypothyroidism, CAD, HTN, diverticulosis Subjective Information: telehealth f/u - MBSS completed with AVIONICS ENGINEER recommendations for soft diet with thin liquids and small sips or using chin tuck method. Current Diet Order/Nutrition S: 2g Na, low fat/low cholesterol - minced and moist/thin liquids Patient /S.O: Not Indicated Pertinent Meds Current Medications Medications (Trade) Dose Ordered Sig/Sal Route PRN Reason Start Time Stop Time Status Last Admin Dose Admin Acetaminophen (Tylenol) 1,000 mg Q6H PRN PO PAIN 1 - 3 08/15/20 00:30 09/14/20 00:29 08/15/20 23:25 Insulin Human Lispro (Humalog) 0-140 0 Units 141-200... ACHS SQ 08/15/20 07:30 09/14/20 07:29 Dextrose 1,000 ml @ 100 mls/hr Q10H PRN IV HYPOGLYCEMIA 08/15/20 02:00 09/14/20 01:59 Dextrose (Dextrose 50%-Water Syringe) 25 ml STAT PRN IV HYPOGLYCEMIA 08/15/20 02:00 09/14/20 01:59 Aspirin (Aspirin Ec) 81 mg DAILY24 PO 08/15/20 02:00 09/14/20 01:59 08/16/20 01:12 Docusate Sodium (Colace) 100 mg BID PO 08/15/20 09:00 09/14/20 08:59 08/16/20 09:40 Gabapentin (Neurontin) 200 mg TID PO 08/15/20 09:00 09/14/20 08:59 08/16/20 14:18 Hydralazine HCl (Apresoline) 50 mg BID PO 08/15/20 09:00 09/14/20 08:59 08/16/20 09:41 Levothyroxine Sodium (Synthroid) 75 mcg DAILY PO 08/15/20 09:00 09/14/20 08:59 08/16/20 09:40 Losartan Potassium (Cozaar) 100 mg DAILY PO 08/15/20 09:00 09/14/20 08:59 08/16/20 09:40 Metoprolol Tartrate (Lopresser) 12.5 mg BID PO 08/15/20 09:00 09/14/20 08:59 08/16/20 09:42 Pantoprazole Sodium (Protonix) 40 mg DAILY PO 08/15/20 09:00 09/14/20 08:59 08/16/20 09:41 Tamsulosin HCl (Flomax) 0.8 mg DAILY PO 08/15/20 09:00 09/14/20 08:59 08/16/20 09:41 Potassium Chloride (Klor-Con 10) 20 meq DAILY PO 08/15/20 09:00 09/14/20 08:59 08/16/20 09:42 Acetaminophen/ Hydrocodone Bitart ([place] 10mg) 1 each Q8HR PRN PO PAIN 7 - 10 08/15/20 02:30 09/14/20 02:29 08/16/20 14:19 Furosemide (Lasix) 40 mg DAILY IV 08/15/20 02:30 08/15/20 10:26 DC 08/15/20 02:23 Budesonide/ Formoterol Fumarate (Symbicort 160-4.5 Mcg Inhaler) 2 inh BID IH 08/15/20 09:00 09/14/20 08:59 08/16/20 08:30 Furosemide (Lasix) 20 mg STAT STAT IV 08/15/20 10:24 08/15/20 10:33 DC 08/15/20 10:33 Spironolactone (Aldactone) 12.5 mg DAILY PO 08/16/20 09:00 09/15/20 08:59 08/16/20 09:41 Pertinent Labs Laboratory Tests Test 08/14/20 22:50 08/15/20 05:17 08/15/20 07:49 08/15/20 11:19 White Blood Count 10.9 10^3/uL 12.6 10^3/uL Red Blood Count 3.34 10^6/uL 3.12 10^6/uL Hemoglobin 8.6 g/dL 7.9 g/dL Hematocrit 27.3 % 25.3 % Mean Corpuscular Volume 81.7 fL 81.1 fL Mean Corpuscular Hemoglobin 25.7 pg 25.3 pg Mean Corpuscular Hemoglobin Concent 31.5 g/dL 31.2 g/dL Red Cell Distribution Width 19.7 % 19.8 % Platelet Count 179 10^3/uL 168 10^3/uL Mean Platelet Volume 10.4 fL 9.9 fL Neutrophils (%) (Auto) 66.4 % 58.3 % Lymphocytes (%) (Auto) 24.2 % 31.4 % Monocytes (%) (Auto) 8.5 % 10.0 % Neutrophils # (Auto) 7.3 10^3/uL 7.3 10^3/uL Lymphocytes # (Auto) 2.65 10^3/uL1 3.95 10^3/uL1 Monocytes # (Auto) 0.9 10^3/uL 1.3 10^3/uL Absolute Immature Granulocyte (auto 0.08 10^3 u/L 0.02 10^3 u/L Absolute Eosinophils (auto) 0.0 10^3/uL 0.0 10^3/uL Immature Granulocytes % 0.70 % 0.20 % Eosinophils % 0.0 % 0.0 % Basophils % 0.2 % 0.1 % Basophils # 0.0 10^3/uL 0.0 10^3/uL Prothrombin Time 13.4 SEC Prothrombin Time INR (Non-Therap) 1.3 Activated Partial Thromboplast Time 25.4 SEC Sodium Level 134 mmol/L 138 mmol/L Potassium Level 4.3 mmol/L 4.3 mmol/L Chloride Level 102.0 mmol/L 104.0 mmol/L Carbon Dioxide Level 22.1 mmol/L 22.4 mmol/L Anion Gap 14.2 15.9 Blood Urea Nitrogen 29 mg/dL 30 mg/dL Creatinine 1.31 mg/dL 1.28 mg/dL Estimated GFR () 63.1 64.8 Est GFR (CKD-EPI)(Non-Afr [place]) 52.1 53.5 BUN/Creatinine Ratio 22.0 23.0 Glucose Level 176 mg/dL 137 mg/dL Calcium Level 8.5 mg/dL 8.4 mg/dL Total Bilirubin 0.4 mg/dL Aspartate Amino Transf (AST/SGOT) 22 U/L Alanine Aminotransferase (ALT/SGPT) 26 U/L Alkaline Phosphatase 113 U/L Total Creatine Kinase 55 U/L Creatine Kinase MB 1.5 ng/mL Troponin I 0.02 ng/mL Pro-B-Type Natriuretic Peptide 62969 pg/mL 78009 pg/mL Total Protein 7.4 g/dL Albumin 3.3 g/dL Globulin 4.1 Albumin/Globulin Ratio 0.804 Bedside Glucose 105 119 Test 08/15/20 16:19 08/15/20 19:13 08/16/20 03:58 08/16/20 04:55 Bedside Glucose 111 127 93 White Blood Count 11.7 10^3/uL Red Blood Count 3.20 10^6/uL Hemoglobin 8.2 g/dL Hematocrit 26.1 % Mean Corpuscular Volume 81.6 fL Mean Corpuscular Hemoglobin 25.6 pg Mean Corpuscular Hemoglobin Concent 31.4 g/dL Red Cell Distribution Width 20.0 % Platelet Count 180 10^3/uL Mean Platelet Volume 10.6 fL Sodium Level 136 mmol/L Potassium Level 4.2 mmol/L Chloride Level 103.0 mmol/L Carbon Dioxide Level 24.2 mmol/L Anion Gap 13.0 Blood Urea Nitrogen 31 mg/dL Creatinine 1.39 mg/dL Estimated GFR () 58.9 Est GFR (CKD-EPI)(Non-Afr [place]) 48.7 BUN/Creatinine Ratio 22.0 Glucose Level 122 mg/dL Calcium Level 8.6 mg/dL Magnesium Level 1.9 mg/dL Total Bilirubin 0.6 mg/dL Aspartate Amino Transf (AST/SGOT) 23 U/L Alanine Aminotransferase (ALT/SGPT) 25 U/L Alkaline Phosphatase 87 U/L Total Protein 6.5 g/dL Albumin 3.0 g/dL Globulin 3.5 Albumin/Globulin Ratio 0.857 Test 08/16/20 07:27 08/16/20 11:43 08/16/20 16:39 Bedside Glucose 101 111 123 Height (Feet): 5 Height (Inches): 8 Current Weight: 220 Usual Weight: 212 Recent Weight Change: Yes (fluid, down 5#) Weight Status: Obese Difficult in: 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 Problems Present Problems: Difficulty swallowing Etiology: unknown Signs/Symptoms: pts report and MBSS RD Comments: 1. Continue current diet as tolerated by pt. Follow recommendations of AVION[employer] ENGINEER: small sips of liquids or using chin tuck. Follow standard aspirations precautions. 2. RD to continue to monitor po intake and diet tolerance. Expected Outcomes 75-100% po intake of meals the next 3 days. Discharge on soft diet Malnutrtion/Nutrition Risk Edu: No MD Notificiation Needed?: No Elba Turner Aug 16, 2020 16:43
[2020-08-16 17:15] VITALS: BP 151/70
--- NOTE | 2020-08-16 20:09 | PRM.PN ---
Subjective Subjective Date: Aug 16, 2020 Time: 20:02 Subjective in good spirits , siting at the edge of the bed , supported by his FWW speaking in complete sentences described a fall he had at home with left lung contusion that had a negative workup also described his PO intake as improved with modified diet denies shortness of breath, cough or chest pain Patient History: FH: cancer (brother) G8 BROTHER, , Age:50's - 60 G8 BROTHER, , Age:50's - 60 Hypertension (father ) 33 FATHER, , Age:61 No Family History of: Alzheimer's disease Asthma Congestive heart failure Parkinson's disease Unknown VTE VTE Risk Total Score: >5 VTE Risk Score VTE Risk: Score 0-1 = Low Risk (Aggressive mobilization; early ambulation; no VTE prophylaxis required) Score 2: Moderate Risk (Intermittent/Pneumatic Compression Device OR Lovenox/Heparin/Coumadin) Score 3-4: High Risk (Intermittent/Pneumatic Compression Device AND Lovenox/Heparin/Coumadin) Score > or =5: Highest Risk (Intermittent/Pneumatic Compression Device AND Lovenox/Heparin/Coumadin) Antico:Hep/LMWH/Coum/Xarelto: No Mechanical device ordered: Yes Reasons not ordering prophylax: Renal impairment Review of Systems Constitutional: Weakness; No: Fever, Chills Respiratory: No: Cough, Dry, Shortness of breath, SOB with excertion, Wheezing, Hemoptysis, Pleuritic Pain, Sputum, Wheezing, Other Cardiovascular: No: Chest Pain, Palpitations Neurological: Incoordination Allergies: Coded Allergies: atorvastatin (Verified Allergy, Severe, MUSCLE WEAKNESS, 03/10/20) hydrochlorothiazide (Verified Allergy, Severe, HYPONATREMIA, 03/10/20) amlodipine (Verified Allergy, Intermediate, Swelling, 03/10/20) "MAKES ME RETAIN WATER REAL BAD" pregabalin (Verified Allergy, Intermediate, 03/10/20) BLURRED VISION butorphanol (Verified Allergy, Unknown, HALLUCINATIONS, 03/10/20) ibuprofen (Verified Allergy, Unknown, 03/10/20) INSTRUCTED BY NOT TO TAKE lisinopril (Verified Allergy, Unknown, 03/10/20) Scheduled Apixaban (Eliquis), 5 MG PO BID, (Reported) Aspirin (Aspir 81), 1 TAB PO DAILY24, (Reported) Docusate Sodium (Easy-Lax), 100 MG PO BID Furosemide (Lasix), 40 MG PO DAILY24 Gabapentin (Gabapentin), 2 CAP PO TID, (Reported) Hydralazine Hcl (Hydralazine Hcl), 2 TAB PO BID, (Reported) Levothyroxine Sodium (Levothyroxine Sodium), 1 TAB PO DAILY, (Reported) Losartan Potassium (Losartan Potassium), 2 TAB PO DAILY, (Reported) Metoprolol Tartrate 25MG (Lopresser 25MG), 12.5 MG PO BID Omeprazole (Omeprazole), 1 CAP PO BID, (Reported) Potassium Chloride (Potassium Chloride), 20 MEQ PO DAILY24 Tamsulosin Hcl (Flomax), 2 CAP PO DAILY, (Reported) Tiotropium Br/Olodaterol HCl (Stiolto Respimat Inhal [place]), 2 PUFF IH DAILY24, (Reported) Torsemide (Torsemide), 1 TAB PO Q48H, (Reported) Scheduled PRN Hydrocodone Bit/Acetaminophen (Hydrocodon-Acetaminophn 10-300), 1 TAB PO BID PRN for PAIN MODERATE, (Reported) Objective Vitals and I/O Vital Sign - Last 24 Hours 08/16/20 08/16/20 08/16/20 08/16/20 08:30 09:40 09:41 09:41 Pulse 69 69 Resp 18 B/P (MAP) 145/63 145/63 145/63 Pulse Ox 96 08/16/20 08/16/20 08/16/20 08/16/20 09:42 10:15 12:03 17:15 Temp 97.6 97.5 Pulse 69 62 65 Resp 19 19 B/P (MAP) 145/63 127/62 (83) 151/70 (97) Pulse Ox 96 97 O2 Delivery Room Air 08/16/20 17:30 Pulse 65 Resp 19 Pulse Ox 97 Intake and Output 08/16/20 06:59 Intake Total 1425 ml Output Total 2375 ml Balance -950 ml General: Alert, Oriented X3, Cooperative, No acute distress HEENT: Atraumatic Neck: Supple, No JVD Lungs: Clear to auscultation, Normal air movement Heart: Regular rate, Normal S1, Other (+murmur, irregularly irregular) Abdomen: Normal bowel sounds, Soft, No masses Extremities: No clubbing, No cyanosis, No edema, Normal pulses, No tenderness/swelling, Other (3+ mild pitting edema.) Neuro: Normal speech, Cranial nerves 3-12 NL Psych/Mental Status: Mental status NL, Mood NL All Results(Lab/Rad) Laboratory Tests Test 08/14/20 22:50 08/15/20 05:17 08/15/20 07:49 08/15/20 11:19 White Blood Count 10.9 10^3/uL 12.6 10^3/uL Red Blood Count 3.34 10^6/uL 3.12 10^6/uL Hemoglobin 8.6 g/dL 7.9 g/dL Hematocrit 27.3 % 25.3 % Mean Corpuscular Volume 81.7 fL 81.1 fL Mean Corpuscular Hemoglobin 25.7 pg 25.3 pg Mean Corpuscular Hemoglobin Concent 31.5 g/dL 31.2 g/dL Red Cell Distribution Width 19.7 % 19.8 % Platelet Count 179 10^3/uL 168 10^3/uL Mean Platelet Volume 10.4 fL 9.9 fL Neutrophils (%) (Auto) 66.4 % 58.3 % Lymphocytes (%) (Auto) 24.2 % 31.4 % Monocytes (%) (Auto) 8.5 % 10.0 % Neutrophils # (Auto) 7.3 10^3/uL 7.3 10^3/uL Lymphocytes # (Auto) 2.65 10^3/uL1 3.95 10^3/uL1 Monocytes # (Auto) 0.9 10^3/uL 1.3 10^3/uL Absolute Immature Granulocyte (auto 0.08 10^3 u/L 0.02 10^3 u/L Absolute Eosinophils (auto) 0.0 10^3/uL 0.0 10^3/uL Immature Granulocytes % 0.70 % 0.20 % Eosinophils % 0.0 % 0.0 % Basophils % 0.2 % 0.1 % Basophils # 0.0 10^3/uL 0.0 10^3/uL Prothrombin Time 13.4 SEC Prothrombin Time INR (Non-Therap) 1.3 Activated Partial Thromboplast Time 25.4 SEC Sodium Level 134 mmol/L 138 mmol/L Potassium Level 4.3 mmol/L 4.3 mmol/L Chloride Level 102.0 mmol/L 104.0 mmol/L Carbon Dioxide Level 22.1 mmol/L 22.4 mmol/L Anion Gap 14.2 15.9 Blood Urea Nitrogen 29 mg/dL 30 mg/dL Creatinine 1.31 mg/dL 1.28 mg/dL Estimated GFR () 63.1 64.8 Est GFR (CKD-EPI)(Non-Afr Turkish) 52.1 53.5 BUN/Creatinine Ratio 22.0 23.0 Glucose Level 176 mg/dL 137 mg/dL Calcium Level 8.5 mg/dL 8.4 mg/dL Total Bilirubin 0.4 mg/dL Aspartate Amino Transf (AST/SGOT) 22 U/L Alanine Aminotransferase (ALT/SGPT) 26 U/L Alkaline Phosphatase 113 U/L Total Creatine Kinase 55 U/L Creatine Kinase MB 1.5 ng/mL Troponin I 0.02 ng/mL Pro-B-Type Natriuretic Peptide 79352 pg/mL 32095 pg/mL Total Protein 7.4 g/dL Albumin 3.3 g/dL Globulin 4.1 Albumin/Globulin Ratio 0.804 Bedside Glucose 105 119 Current Medications Medications (Trade) Dose Ordered Sig/Sal Route PRN Reason Start Time Stop Time Status Last Admin Dose Admin Acetaminophen (Tylenol) 1,000 mg Q6H PRN PO PAIN 1 - 3 08/15/20 00:30 09/14/20 00:29 Insulin Human Lispro (Humalog) 0-140 0 Units 141-200... ACHS SQ 08/15/20 07:30 09/14/20 07:29 Dextrose 1,000 ml @ 100 mls/hr Q10H PRN IV HYPOGLYCEMIA 08/15/20 02:00 09/14/20 01:59 Dextrose (Dextrose 50%-Water Syringe) 25 ml STAT PRN IV HYPOGLYCEMIA 08/15/20 02:00 09/14/20 01:59 Aspirin (Aspirin Ec) 81 mg DAILY24 PO 08/15/20 02:00 09/14/20 01:59 08/15/20 02:22 Docusate Sodium (Colace) 100 mg BID PO 08/15/20 09:00 09/14/20 08:59 08/15/20 09:31 Gabapentin (Neurontin) 200 mg TID PO 08/15/20 09:00 09/14/20 08:59 08/15/20 09:32 Hydralazine HCl (Apresoline) 50 mg BID PO 08/15/20 09:00 09/14/20 08:59 Levothyroxine Sodium (Synthroid) 75 mcg DAILY PO 08/15/20 09:00 09/14/20 08:59 08/15/20 09:31 Losartan Potassium (Cozaar) 100 mg DAILY PO 08/15/20 09:00 09/14/20 08:59 Metoprolol Tartrate (Lopresser) 12.5 mg BID PO 08/15/20 09:00 09/14/20 08:59 08/15/20 09:31 Pantoprazole Sodium (Protonix) 40 mg DAILY PO 08/15/20 09:00 09/14/20 08:59 08/15/20 09:32 Tamsulosin HCl (Flomax) 0.8 mg DAILY PO 08/15/20 09:00 09/14/20 08:59 08/15/20 09:31 Potassium Chloride (Klor-Con 10) 20 meq DAILY PO 08/15/20 09:00 09/14/20 08:59 08/15/20 09:31 Acetaminophen/ Hydrocodone Bitart ([place] 10mg) 1 each Q8HR PRN PO PAIN 7 - 10 08/15/20 02:30 09/14/20 02:29 08/15/20 02:22 Furosemide (Lasix) 40 mg DAILY IV 08/15/20 02:30 08/15/20 10:26 DC 08/15/20 02:23 Budesonide/ Formoterol Fumarate (Symbicort 160-4.5 Mcg Inhaler) 2 inh BID IH 08/15/20 09:00 09/14/20 08:59 Furosemide (Lasix) 20 mg STAT STAT IV 08/15/20 10:24 08/15/20 10:33 DC 08/15/20 10:33 Course Sepsis Screening Results: Posi: NEGATIVE Sepsis Qualifier/Stage: NO DEFINITE RISK Duration or Total Time Spent w: 25m Vitals & review Data Vital Sign - Last 24 Hours 08/15/20 08/15/20 08/15/20 08/15/20 08:32 09:00 09:00 09:31 Temp 97.6 Pulse 52 52 52 Resp 19 B/P (MAP) 132/56 (81) 132/56 132/56 132/56 Pulse Ox 97 08/15/20 08/15/20 10:23 10:33 B/P (MAP) 132/56 O2 Delivery Room Air Laboratory Tests Test 08/14/20 22:50 08/15/20 05:17 08/15/20 07:49 08/15/20 11:19 White Blood Count 10.9 10^3/uL 12.6 10^3/uL Red Blood Count 3.34 10^6/uL 3.12 10^6/uL Hemoglobin 8.6 g/dL 7.9 g/dL Hematocrit 27.3 % 25.3 % Mean Corpuscular Volume 81.7 fL 81.1 fL Mean Corpuscular Hemoglobin 25.7 pg 25.3 pg Mean Corpuscular Hemoglobin Concent 31.5 g/dL 31.2 g/dL Red Cell Distribution Width 19.7 % 19.8 % Platelet Count 179 10^3/uL 168 10^3/uL Mean Platelet Volume 10.4 fL 9.9 fL Neutrophils (%) (Auto) 66.4 % 58.3 % Lymphocytes (%) (Auto) 24.2 % 31.4 % Monocytes (%) (Auto) 8.5 % 10.0 % Neutrophils # (Auto) 7.3 10^3/uL 7.3 10^3/uL Lymphocytes # (Auto) 2.65 10^3/uL1 3.95 10^3/uL1 Monocytes # (Auto) 0.9 10^3/uL 1.3 10^3/uL Absolute Immature Granulocyte (auto 0.08 10^3 u/L 0.02 10^3 u/L Absolute Eosinophils (auto) 0.0 10^3/uL 0.0 10^3/uL Immature Granulocytes % 0.70 % 0.20 % Eosinophils % 0.0 % 0.0 % Basophils % 0.2 % 0.1 % Basophils # 0.0 10^3/uL 0.0 10^3/uL Prothrombin Time 13.4 SEC Prothrombin Time INR (Non-Therap) 1.3 Activated Partial Thromboplast Time 25.4 SEC Sodium Level 134 mmol/L 138 mmol/L Potassium Level 4.3 mmol/L 4.3 mmol/L Chloride Level 102.0 mmol/L 104.0 mmol/L Carbon Dioxide Level 22.1 mmol/L 22.4 mmol/L Anion Gap 14.2 15.9 Blood Urea Nitrogen 29 mg/dL 30 mg/dL Creatinine 1.31 mg/dL 1.28 mg/dL Estimated GFR () 63.1 64.8 Est GFR (CKD-EPI)(Non-Afr Turkish) 52.1 53.5 BUN/Creatinine Ratio 22.0 23.0 Glucose Level 176 mg/dL 137 mg/dL Calcium Level 8.5 mg/dL 8.4 mg/dL Total Bilirubin 0.4 mg/dL Aspartate Amino Transf (AST/SGOT) 22 U/L Alanine Aminotransferase (ALT/SGPT) 26 U/L Alkaline Phosphatase 113 U/L Total Creatine Kinase 55 U/L Creatine Kinase MB 1.5 ng/mL Troponin I 0.02 ng/mL Pro-B-Type Natriuretic Peptide 14404 pg/mL 99733 pg/mL Total Protein 7.4 g/dL Albumin 3.3 g/dL Globulin 4.1 Albumin/Globulin Ratio 0.804 Bedside Glucose 105 119 Current Medications Medications (Trade) Dose Ordered Sig/Sal PRN Reason Start Time Stop Time Status Last Admin Acetaminophen (Tylenol) 1,000 mg Q6H PRN PAIN 1 - 3 08/15/20 00:30 09/14/20 00:29 Acetaminophen/ Hydrocodone Bitart ([place] 10mg) 1 each Q8HR PRN PAIN 7 - 10 08/15/20 02:30 09/14/20 02:29 08/15/20 02:22 Aspirin (Aspirin Ec) 81 mg DAILY24 08/15/20 02:00 09/14/20 01:59 08/15/20 02:22 Budesonide/ Formoterol Fumarate (Symbicort 160-4.5 Mcg Inhaler) 2 inh BID 08/15/20 09:00 09/14/20 08:59 Dextrose 1,000 ml @ 100 mls/hr Q10H PRN HYPOGLYCEMIA 08/15/20 02:00 09/14/20 01:59 Dextrose (Dextrose 50%-Water Syringe) 25 ml STAT PRN HYPOGLYCEMIA 08/15/20 02:00 09/14/20 01:59 Docusate Sodium (Colace) 100 mg BID 08/15/20 09:00 09/14/20 08:59 08/15/20 09:31 Gabapentin (Neurontin) 200 mg TID 08/15/20 09:00 09/14/20 08:59 08/15/20 09:32 Hydralazine HCl (Apresoline) 50 mg BID 08/15/20 09:00 09/14/20 08:59 Insulin Human Lispro (Humalog) 0-140 0 Units 141-200... ACHS 08/15/20 07:30 09/14/20 07:29 Levothyroxine Sodium (Synthroid) 75 mcg DAILY 08/15/20 09:00 09/14/20 08:59 08/15/20 09:31 Losartan Potassium (Cozaar) 100 mg DAILY 08/15/20 09:00 09/14/20 08:59 Metoprolol Tartrate (Lopresser) 12.5 mg BID 08/15/20 09:00 09/14/20 08:59 08/15/20 09:31 Pantoprazole Sodium (Protonix) 40 mg DAILY 08/15/20 09:00 09/14/20 08:59 08/15/20 09:32 Potassium Chloride (Klor-Con 10) 20 meq DAILY 08/15/20 09:00 09/14/20 08:59 08/15/20 09:31 Tamsulosin HCl (Flomax) 0.8 mg DAILY 08/15/20 09:00 09/14/20 08:59 08/15/20 09:31 Sepsis Infection Criteria Pres: Documented Infection LEVEL 1 SEPSIS INFECTION CRITE: Cough/Shortness of Breath LEVEL 2-SIRS (LIST ALL THAT AP: None/Not assessed Cardiovascular Evidence: Not Assessed or None Hematologic Evidence: None/Not assessed Hepatic Evidence: None/Not assessed Metabolic Evidence: None/Not assessed Neurological Evidence: None/Not assessed Respiratory Evidence: None/Not assessed Renal Evidence: None/Not assessed O2 Sat by Pulse Oximetry: 97 Assessment/Plan Assessment/Plan Assessment/Plan An 84 year old man with multiple diagnosis here for management of his CHF exacerbation, with other comorbidities of persistent atrial fibrillation on senior care anticoagulation , diabetes mellitus , dysphagia , frequent ground level falls , hypertension, as well as COPD Plan ACUTE SYSTOLIC CHF DECOMPENSATION - Euvolemic - continue daily weights and fluid management - aldactone low dose - lasix not needed - TTE HYPERTENSION - fair control - hydralazine, metoprolol and losartan - may optimize hydralazine , but wary of hypotension COPD - stable on LABA - PRN albuterol and duonebs HHN - no oxygen demand DIABETES MELLITUS - good control - continue sliding scale - may need to convert to an oral hypoglycemic outpatient - Aic PERMANENT ATRIAL FIBRILLATION - rate control with metoprolol - anticoagulation with eliquis CARE HOME ANTICOAGULATION - on eliquis - will trend H and H MICROCYTIC ANEMIA - Iron and TIBC DYSPHAGIA - follow recommendations by Speech - assess for malnutrition RESTLESS LEG SYNDROME - ferritin - may benefit from requip - will begin trial - correct iron deficiency if present LEUKOCYTOSIS - etiology unclear - maybe leukamoid - procalcitonin - urinalysis FREQUENT FALLS - PT/OT recommendations - gait training DEBILITY - manager social responsibility and case management evaluation FABIANO DILLARD MD Aug 16, 2020 20:09
[2020-08-16] MEDS ORDERED: REQUIP PO SCH (20:30)
[2020-08-16 20:58] VITALS: BP 125/66
[2020-08-17 01:56] VITALS: BP 118/62
[2020-08-17] MEDS: ASPIRIN EC PO SCH (02:00)
[2020-08-17 05:30] VITALS: BP 110/80
[2020-08-17] MEDS: HUMALOG SQ SCH ×3 (07:06→17:30)
[2020-08-17 08:09] VITALS: BP 135/60
[2020-08-17] MEDS: SYMBICORT 160-4.5 MCG INHALER IH SCH (08:45)
[2020-08-17] MEDS: FLOMAX PO SCH (09:31)
[2020-08-17] MEDS: COZAAR PO SCH (09:31)
[2020-08-17] MEDS: NEURONTIN PO SCH ×2 (09:31→15:56)
[2020-08-17] MEDS: COLACE PO SCH (09:31)
[2020-08-17] MEDS: APRESOLINE PO SCH (09:32)
[2020-08-17] MEDS: PROTONIX PO SCH (09:33)
[2020-08-17] MEDS: ALDACTONE PO SCH (09:33)
[2020-08-17] MEDS: SYNTHROID PO SCH (09:33)
[2020-08-17] MEDS: LOPRESSER PO SCH (09:33)
[2020-08-17] MEDS: ELIQUIS PO SCH (09:34)
[2020-08-17 12:26] VITALS: BP 135/73
--- NOTE | 2020-08-17 13:43 | NUR ---
UPDATE PATIENT AMBULATING IN ROOM WITH WALKER.
--- NOTE | 2020-08-17 16:45 | PRM.DC ---
Discharge Summary Date of Discharge: Aug 17, 2020 Time of Request to Discharge: 16:38 Reason for Visit: SOB Hospital Course The above named is a pleasant Man at 84 admitted as a CHF decompensation with elevated Probnp, he was diuresed with electrolyte replacement and quickl became euvolemic but he did have other conditions - dysphagia , which triggered a speech evaluation using a barium swallow with recommendations on modification of the consistenecy of liquid and solid foods also PT assessment revealed a gait disturbance and need for a FWW , and he tend proceeded to share a story of a recent fall that led to a left anterior chest wall contusions other comorbid conditions managed were is atrial fibrillation requiring ferry terminal agent anticoagulation doing well on Eliquis , and his did not develop a rapid rhythm in patient - was complaint with is blockers his diabetes was managed with sliding scale coverage his COPD remained stable with ability to maintain oxygenation at toom air his anemia was normocytic and remained stable with his CHF managed and ancillary services recommendation for [facility] care due to debility =- he was allowed to a buttermaker care facility Patient History: FH: cancer (brother) G8 BROTHER, , Age:50's - 60 G8 BROTHER, , Age:50's - 60 Hypertension (father ) 33 FATHER, , Age:61 No Family History of: Alzheimer's disease Asthma Congestive heart failure Parkinson's disease Unknown General: Alert, Oriented X3, Cooperative, No acute distress HEENT: Atraumatic, PERRLA, EOMI, Mucous membr. moist/pink Lungs: Clear to auscultation, Normal air movement Heart: Normal S1, Normal S2, Other (irregularly irregular ) Abdomen: Normal bowel sounds Extremities: No edema Skin: No rashes, No breakdown Psych/Mental Status: Mental status NL Scheduled Apixaban (Eliquis), 5 MG PO BID, (Reported) Aspirin (Aspir 81), 1 TAB PO DAILY24, (Reported) Docusate Sodium (Easy-Lax), 100 MG PO BID Furosemide (Lasix), 40 MG PO DAILY24 Gabapentin (Gabapentin), 2 CAP PO TID, (Reported) Hydralazine Hcl (Hydralazine Hcl), 2 TAB PO BID, (Reported) Levothyroxine Sodium (Levothyroxine Sodium), 1 TAB PO DAILY, (Reported) Losartan Potassium (Losartan Potassium), 2 TAB PO DAILY, (Reported) Metoprolol Tartrate 25MG (Lopresser 25MG), 12.5 MG PO BID Omeprazole (Omeprazole), 1 CAP PO BID, (Reported) Potassium Chloride (Potassium Chloride), 20 MEQ PO DAILY24 Tamsulosin Hcl (Flomax), 2 CAP PO DAILY, (Reported) Tiotropium Br/Olodaterol HCl (Stiolto Respimat Inhal [place]), 2 PUFF IH DAILY24, (Reported) Torsemide (Torsemide), 1 TAB PO Q48H, (Reported) Scheduled PRN Hydrocodone Bit/Acetaminophen (Hydrocodon-Acetaminophn 10-300), 1 TAB PO BID PRN for PAIN MODERATE, (Reported) Sepsis Evaluation @ Discharge Vital Sign - Last 24 Hours 08/15/20 08/15/20 08/15/20 08/15/20 08:32 09:00 09:00 09:31 Temp 97.6 Pulse 52 52 52 Resp 19 B/P (MAP) 132/56 (81) 132/56 132/56 132/56 Pulse Ox 97 08/15/20 08/15/20 10:23 10:33 B/P (MAP) 132/56 O2 Delivery Room Air Laboratory Tests Test 08/14/20 22:50 08/15/20 05:17 08/15/20 07:49 08/15/20 11:19 White Blood Count 10.9 10^3/uL 12.6 10^3/uL Red Blood Count 3.34 10^6/uL 3.12 10^6/uL Hemoglobin 8.6 g/dL 7.9 g/dL Hematocrit 27.3 % 25.3 % Mean Corpuscular Volume 81.7 fL 81.1 fL Mean Corpuscular Hemoglobin 25.7 pg 25.3 pg Mean Corpuscular Hemoglobin Concent 31.5 g/dL 31.2 g/dL Red Cell Distribution Width 19.7 % 19.8 % Platelet Count 179 10^3/uL 168 10^3/uL Mean Platelet Volume 10.4 fL 9.9 fL Neutrophils (%) (Auto) 66.4 % 58.3 % Lymphocytes (%) (Auto) 24.2 % 31.4 % Monocytes (%) (Auto) 8.5 % 10.0 % Neutrophils # (Auto) 7.3 10^3/uL 7.3 10^3/uL Lymphocytes # (Auto) 2.65 10^3/uL1 3.95 10^3/uL1 Monocytes # (Auto) 0.9 10^3/uL 1.3 10^3/uL Absolute Immature Granulocyte (auto 0.08 10^3 u/L 0.02 10^3 u/L Absolute Eosinophils (auto) 0.0 10^3/uL 0.0 10^3/uL Immature Granulocytes % 0.70 % 0.20 % Eosinophils % 0.0 % 0.0 % Basophils % 0.2 % 0.1 % Basophils # 0.0 10^3/uL 0.0 10^3/uL Prothrombin Time 13.4 SEC Prothrombin Time INR (Non-Therap) 1.3 Activated Partial Thromboplast Time 25.4 SEC Sodium Level 134 mmol/L 138 mmol/L Potassium Level 4.3 mmol/L 4.3 mmol/L Chloride Level 102.0 mmol/L 104.0 mmol/L Carbon Dioxide Level 22.1 mmol/L 22.4 mmol/L Anion Gap 14.2 15.9 Blood Urea Nitrogen 29 mg/dL 30 mg/dL Creatinine 1.31 mg/dL 1.28 mg/dL Estimated GFR () 63.1 64.8 Est GFR (CKD-EPI)(Non-Afr Cambodian) 52.1 53.5 BUN/Creatinine Ratio 22.0 23.0 Glucose Level 176 mg/dL 137 mg/dL Calcium Level 8.5 mg/dL 8.4 mg/dL Total Bilirubin 0.4 mg/dL Aspartate Amino Transf (AST/SGOT) 22 U/L Alanine Aminotransferase (ALT/SGPT) 26 U/L Alkaline Phosphatase 113 U/L Total Creatine Kinase 55 U/L Creatine Kinase MB 1.5 ng/mL Troponin I 0.02 ng/mL Pro-B-Type Natriuretic Peptide 44821 pg/mL 68820 pg/mL Total Protein 7.4 g/dL Albumin 3.3 g/dL Globulin 4.1 Albumin/Globulin Ratio 0.804 Bedside Glucose 105 119 Current Medications Medications (Trade) Dose Ordered Sig/Sal PRN Reason Start Time Stop Time Status Last Admin Acetaminophen (Tylenol) 1,000 mg Q6H PRN PAIN 1 - 3 08/15/20 00:30 09/14/20 00:29 Acetaminophen/ Hydrocodone Bitart ([place] 10mg) 1 each Q8HR PRN PAIN 7 - 10 08/15/20 02:30 09/14/20 02:29 08/15/20 02:22 Aspirin (Aspirin Ec) 81 mg DAILY24 08/15/20 02:00 09/14/20 01:59 08/15/20 02:22 Budesonide/ Formoterol Fumarate (Symbicort 160-4.5 Mcg Inhaler) 2 inh BID 08/15/20 09:00 09/14/20 08:59 Dextrose 1,000 ml @ 100 mls/hr Q10H PRN HYPOGLYCEMIA 08/15/20 02:00 09/14/20 01:59 Dextrose (Dextrose 50%-Water Syringe) 25 ml STAT PRN HYPOGLYCEMIA 08/15/20 02:00 09/14/20 01:59 Docusate Sodium (Colace) 100 mg BID 08/15/20 09:00 09/14/20 08:59 08/15/20 09:31 Gabapentin (Neurontin) 200 mg TID 08/15/20 09:00 09/14/20 08:59 08/15/20 09:32 Hydralazine HCl (Apresoline) 50 mg BID 08/15/20 09:00 09/14/20 08:59 Insulin Human Lispro (Humalog) 0-140 0 Units 141-200... ACHS 08/15/20 07:30 09/14/20 07:29 Levothyroxine Sodium (Synthroid) 75 mcg DAILY 08/15/20 09:00 09/14/20 08:59 08/15/20 09:31 Losartan Potassium (Cozaar) 100 mg DAILY 08/15/20 09:00 09/14/20 08:59 Metoprolol Tartrate (Lopresser) 12.5 mg BID 08/15/20 09:00 09/14/20 08:59 08/15/20 09:31 Pantoprazole Sodium (Protonix) 40 mg DAILY 08/15/20 09:00 09/14/20 08:59 08/15/20 09:32 Potassium Chloride (Klor-Con 10) 20 meq DAILY 08/15/20 09:00 09/14/20 08:59 08/15/20 09:31 Tamsulosin HCl (Flomax) 0.8 mg DAILY 08/15/20 09:00 09/14/20 08:59 08/15/20 09:31 Course Sepsis Screening Results: Posi: NEGATIVE Sepsis Qualifier/Stage: NO DEFINITE RISK Duration or Total Time Spent w: 25m Vitals & review Data Vital Sign - Last 24 Hours 08/15/20 08/15/20 08/15/20 08/15/20 08:32 09:00 09:00 09:31 Temp 97.6 Pulse 52 52 52 Resp 19 B/P (MAP) 132/56 (81) 132/56 132/56 132/56 Pulse Ox 97 08/15/20 08/15/20 10:23 10:33 B/P (MAP) 132/56 O2 Delivery Room Air Laboratory Tests Test 08/14/20 22:50 08/15/20 05:17 08/15/20 07:49 08/15/20 11:19 White Blood Count 10.9 10^3/uL 12.6 10^3/uL Red Blood Count 3.34 10^6/uL 3.12 10^6/uL Hemoglobin 8.6 g/dL 7.9 g/dL Hematocrit 27.3 % 25.3 % Mean Corpuscular Volume 81.7 fL 81.1 fL Mean Corpuscular Hemoglobin 25.7 pg 25.3 pg Mean Corpuscular Hemoglobin Concent 31.5 g/dL 31.2 g/dL Red Cell Distribution Width 19.7 % 19.8 % Platelet Count 179 10^3/uL 168 10^3/uL Mean Platelet Volume 10.4 fL 9.9 fL Neutrophils (%) (Auto) 66.4 % 58.3 % Lymphocytes (%) (Auto) 24.2 % 31.4 % Monocytes (%) (Auto) 8.5 % 10.0 % Neutrophils # (Auto) 7.3 10^3/uL 7.3 10^3/uL Lymphocytes # (Auto) 2.65 10^3/uL1 3.95 10^3/uL1 Monocytes # (Auto) 0.9 10^3/uL 1.3 10^3/uL Absolute Immature Granulocyte (auto 0.08 10^3 u/L 0.02 10^3 u/L Absolute Eosinophils (auto) 0.0 10^3/uL 0.0 10^3/uL Immature Granulocytes % 0.70 % 0.20 % Eosinophils % 0.0 % 0.0 % Basophils % 0.2 % 0.1 % Basophils # 0.0 10^3/uL 0.0 10^3/uL Prothrombin Time 13.4 SEC Prothrombin Time INR (Non-Therap) 1.3 Activated Partial Thromboplast Time 25.4 SEC Sodium Level 134 mmol/L 138 mmol/L Potassium Level 4.3 mmol/L 4.3 mmol/L Chloride Level 102.0 mmol/L 104.0 mmol/L Carbon Dioxide Level 22.1 mmol/L 22.4 mmol/L Anion Gap 14.2 15.9 Blood Urea Nitrogen 29 mg/dL 30 mg/dL Creatinine 1.31 mg/dL 1.28 mg/dL Estimated GFR () 63.1 64.8 Est GFR (CKD-EPI)(Non-Afr Cambodian) 52.1 53.5 BUN/Creatinine Ratio 22.0 23.0 Glucose Level 176 mg/dL 137 mg/dL Calcium Level 8.5 mg/dL 8.4 mg/dL Total Bilirubin 0.4 mg/dL Aspartate Amino Transf (AST/SGOT) 22 U/L Alanine Aminotransferase (ALT/SGPT) 26 U/L Alkaline Phosphatase 113 U/L Total Creatine Kinase 55 U/L Creatine Kinase MB 1.5 ng/mL Troponin I 0.02 ng/mL Pro-B-Type Natriuretic Peptide 58456 pg/mL 59933 pg/mL Total Protein 7.4 g/dL Albumin 3.3 g/dL Globulin 4.1 Albumin/Globulin Ratio 0.804 Bedside Glucose 105 119 Current Medications Medications (Trade) Dose Ordered Sig/Sal PRN Reason Start Time Stop Time Status Last Admin Acetaminophen (Tylenol) 1,000 mg Q6H PRN PAIN 1 - 3 08/15/20 00:30 09/14/20 00:29 Acetaminophen/ Hydrocodone Bitart ([place] 10mg) 1 each Q8HR PRN PAIN 7 - 10 08/15/20 02:30 09/14/20 02:29 08/15/20 02:22 Aspirin (Aspirin Ec) 81 mg DAILY24 08/15/20 02:00 09/14/20 01:59 08/15/20 02:22 Budesonide/ Formoterol Fumarate (Symbicort 160-4.5 Mcg Inhaler) 2 inh BID 08/15/20 09:00 09/14/20 08:59 Dextrose 1,000 ml @ 100 mls/hr Q10H PRN HYPOGLYCEMIA 08/15/20 02:00 09/14/20 01:59 Dextrose (Dextrose 50%-Water Syringe) 25 ml STAT PRN HYPOGLYCEMIA 08/15/20 02:00 09/14/20 01:59 Docusate Sodium (Colace) 100 mg BID 08/15/20 09:00 09/14/20 08:59 08/15/20 09:31 Gabapentin (Neurontin) 200 mg TID 08/15/20 09:00 09/14/20 08:59 08/15/20 09:32 Hydralazine HCl (Apresoline) 50 mg BID 08/15/20 09:00 09/14/20 08:59 Insulin Human Lispro (Humalog) 0-140 0 Units 141-200... ACHS 08/15/20 07:30 09/14/20 07:29 Levothyroxine Sodium (Synthroid) 75 mcg DAILY 08/15/20 09:00 09/14/20 08:59 08/15/20 09:31 Losartan Potassium (Cozaar) 100 mg DAILY 08/15/20 09:00 09/14/20 08:59 Metoprolol Tartrate (Lopresser) 12.5 mg BID 08/15/20 09:00 09/14/20 08:59 08/15/20 09:31 Pantoprazole Sodium (Protonix) 40 mg DAILY 08/15/20 09:00 09/14/20 08:59 08/15/20 09:32 Potassium Chloride (Klor-Con 10) 20 meq DAILY 08/15/20 09:00 09/14/20 08:59 08/15/20 09:31 Tamsulosin HCl (Flomax) 0.8 mg DAILY 08/15/20 09:00 09/14/20 08:59 08/15/20 09:31 Sepsis Infection Criteria Pres: Documented Infection LEVEL 1 SEPSIS INFECTION CRITE: Cough/Shortness of Breath LEVEL 2-SIRS (LIST ALL THAT AP: None/Not assessed Cardiovascular Evidence: Not Assessed or None Hematologic Evidence: None/Not assessed Hepatic Evidence: None/Not assessed Metabolic Evidence: None/Not assessed Neurological Evidence: None/Not assessed Respiratory Evidence: None/Not assessed Renal Evidence: None/Not assessed O2 Sat by Pulse Oximetry: 98 FABIANO DILLARD MD Aug 17, 2020 16:45
[2020-08-17] MEDS ORDERED: SPIR25TA PO (16:48)
[2020-08-17] MEDS ORDERED: APIX5TAB PO (16:48)
[2020-08-17] MEDS ORDERED: ROPINIROLE HCL PO (16:48)
[2020-08-17 17:05] VITALS: BP 109/42
[2020-08-17 17:53] VITALS: BP 109/42
--- NOTE | 2020-08-17 19:33 | NUR ---
UPDATE ATTEMPTED TO CALL REPORT TO [facility]. NURSE WAS SUPPOSRED TO CALL BACK AT 1750. AT THIS TIME HAVE RECEIVED CALL BACK.
== END 2020-08-17 17:45 | DRG 291 ==
LOC: EDBD 22:33 → ER 22:33 → MS 23:56
PROVIDERS: ADMIT Hospitalist; ATTEND Family Medicine
DX: I13.0 Hypertensive heart and chronic kidney disease with heart failure and stage 1 through stage 4 chronic kidney disease, or unspecified chronic kidney disease (principal); I50.43 Acute on chronic combined systolic (congestive) and diastolic (congestive) heart failure; I48.92 Unspecified atrial flutter; I48.19 Other persistent atrial fibrillation; Z95.3 Presence of xenogenic heart valve; I08.3 Combined rheumatic disorders of mitral, aortic and tricuspid valves; J44.9 Chronic obstructive pulmonary disease, unspecified; G47.33 Obstructive sleep apnea (adult) (pediatric); N18.9 Chronic kidney disease, unspecified; E11.22 Type 2 diabetes mellitus with diabetic chronic kidney disease; R13.10 Dysphagia, unspecified; E03.9 Hypothyroidism, unspecified; E78.5 Hyperlipidemia, unspecified; F02.80 Dementia in other diseases classified elsewhere, unspecified severity, without behavioral disturbance, psychotic disturbance, mood disturbance, and anxiety; G20 Parkinson's disease; G30.9 Alzheimer's disease, unspecified; I25.10 Atherosclerotic heart disease of native coronary artery without angina pectoris; F41.9 Anxiety disorder, unspecified; K57.90 Diverticulosis of intestine, part unspecified, without perforation or abscess without bleeding; M19.90 Unspecified osteoarthritis, unspecified site; S20.212A Contusion of left front wall of thorax, initial encounter; R26.9 Unspecified abnormalities of gait and mobility; G25.81 Restless legs syndrome; D50.9 Iron deficiency anemia, unspecified; W18.30XA Fall on same level, unspecified, initial encounter; Y93.89 Activity, other specified; Y99.8 Other external cause status; Z91.14 Patient's other noncompliance with medication regimen; Z79.01 Long term (current) use of anticoagulants; Z91.19 Patient's noncompliance with other medical treatment and regimen; Y92.89 Other specified places as the place of occurrence of the external cause; Z80.9 Family history of malignant neoplasm, unspecified; Z82.49 Family history of ischemic heart disease and other diseases of the circulatory system; Z88.8 Allergy status to other drugs, medicaments and biological substances
CPT/HCPCS: 36415; 71045; 74230; 80048; 80053; 80061; 82550; 82553; 82728; 82948; 83550; 83735; 83880; 84145; 84443; 84484; 85025; 85027; 85610; 85730; 92611; 93005; 93306; 93308; 94640; 97162; 99285; G0378; J1940; J3490; 97116-GP